=== PATIENT | male | born 1960 | race Caucasian/White ===

== ENCOUNTER → 2018-06-19 15:28 | Outpatient (CLI) | payer OTHER, SELFPAY ==
[2018-06-19 15:36] LABS: Bacteria 0 SEEN /hpf (None Seen); Mucous, Urine 0 SEEN /hpf (<or=2+); Red Blood Cells-Urine 0 SEEN /hpf (0-5); Squamous Epithelial Cells - UA 0 SEEN /hpf (0-5); White Blood Cells 0 SEEN /hpf (0-5)
[2018-06-19 16:55] LABS: Absolute Lymphocyte Count 2.51 X10^3/ul (0.83-4.51); Absolute Neutrophil Count 2.2 X10^3/uL (2.0-7.7); Basophil# 0.06 X10^3/uL; Basophil% 1.1 % (0-1); Eosinophils% 8.8 % (0-5); Hematocrit 48.4 % (40-54); Hemoglobin 16.1 g/dl (13.0-16.5); Lymphocyte # 2.51 X10^3/ul (4.0); Lymphocyte % 44.4 % (19-41); Mean Corp Hgb Conc 33.3 g/gl (32-36); Mean Corpuscular Hgb 32.7 pg (27.0-32.0); Mean Corpuscular Volume 98.4 fL (80-94); Mean Platelet Vol. 9.6 fl (6.2-12.0); Monocyte# 0.41 X10^3/uL; Monocyte% 7.3 % (0-10); Neutrophil # 2.16 X10^3/uL (2.7-7.7); Neutrophil % 38.2 % (47-70); Platelet Count 244 K/mm3 (150-450); RBC Distribution Width CV 13.7 % (11.6-14.6); RBC Distribution Width SD 49.1 fl (35.1-43.9); Red Blood Count 4.92 M/mm3 (4.6-6.2); White Blood Count 5.7 K/mm3 (4.4-11.0)
[2018-06-19 16:57] LABS: POSITIVE COUNT NO; POSITIVE DIFFERENTIAL NO; POSITIVE MORPHOLOGY NO
[2018-06-19 17:11] LABS: Color, Urine Yellow (Yellow); Glucose, Dipstick Normal (Normal); Ketone-Dipstick Negative (Negative); Leukocyte Esterase-Dipstick Negative /ul (Negative); Nitrite-Dipstick Negative (Negative); Occult Blood-Urine Negative /ul (Negative); Protein-Dipstick Negative (Negative); Urine Bilirubin Dipstick Negative (Negative); Urine Clarity Clear (Clear); Urine Urobilinogen Normal (Normal)
[2018-06-19 17:15] LABS: ALB/GLOB Ratio 1.2 RATIO (0.9-2.4); AST(SGOT) 28 U/L (15-37); Alanine Aminotransfer ALT/SGPT 38 U/L (16-61); Albumin, Serum 3.9 g/dL (3.2-5.0); Alkaline Phosphatase 63 U/L (45-117); Anion Gap 9 (5-15); BUN 26 mg/dL (7-18); BUN/Creat Ratio 30.7 RATIO (10-20); Chloride 105 mmol/L (98-107); Cholesterol 212 mg/dL (200); Creatinine, Serum 0.85 mg/dL (0.70-1.30); EST Glomerular Filtration Rate 98 mL/min (>60); Est Glom Filt Rate - Afr Amer 119 mL/min (>60); Globulin 3.2 g/dL (2.2-4.2); Glucose 92 mg/dL (74-106); High Density Lipoprotein 80 mg/dL; PSA,Total - Annual Screen 0.71 ng/mL (0.00-4.00); Potassium 4.5 mmol/L (3.5-5.1); Protein, Total 7.1 g/dL (6.4-8.2); Sodium Level 141 mmol/L (136-145); Triglycerides 110 mg/dL; Very Low Density Lipoprotein 22 mg/dL (5-40)
== END ==
PROVIDERS: Family Provider Family Medicine; PCP Family Medicine; Visit Provider Family Medicine
DX: Z00.00 Encounter for general adult medical examination without abnormal findings (principal); Z51.81 Encounter for therapeutic drug level monitoring; Z12.5 Encounter for screening for malignant neoplasm of prostate; N13.4 Hydroureter; R16.0 Hepatomegaly, not elsewhere classified
CPT/HCPCS: 36415; 80053; 80061; 81001; 84153; 85025; G0103

== ENCOUNTER → 2019-09-29 07:00 | Outpatient (CLI) | payer BC, SELFPAY ==
--- NOTE | 2019-09-29 07:10 | RAD_ITS ---
STUDY: X-RAY - ORBITS REASON FOR EXAM: Male, 59 years old. CLEARANCE FOR MRI; -- H/O METAL IN EYES TECHNIQUE: 2 view(s) of the orbits were obtained. COMPARISON: None. FINDINGS: Normal bilateral orbits without a metallic orbital foreign body. Normal visualized facial bones. Normal paranasal sinuses. The soft tissue structures are unremarkable. RAD/Orbits for Foreign Body IMPRESSION: No demonstrated metallic orbital foreign body. The patient is cleared for an MRI examination. Electronically Signed: Jake Nieves MD at 8:00 EST Tel , Service support ,
--- NOTE | 2019-09-29 07:45 | MRI_ITS ---
STUDY: MRI LUMBAR SPINE WITHOUT CONTRAST REASON FOR EXAM: Male, 59 years old. Back pain and leg pain TECHNIQUE: Standardized fat and water weighted pulse sequences were obtained in the sagittal and axial planes. COMPARISON: 08 June 2018, 17 May 2014 FINDINGS: Lumbar spine is intact and aligned with normal marrow, paraspinous soft tissues and upper SI joints. There is L5-S1 endplate and disc degeneration. Conus medullaris terminates at L1-L2 with normal cauda equina and widely patent thecal sac. There are multilevel mild scattered foraminal stenoses. L5-S1 has a left central disc extrusion without thecal sac or lateral recess stenosis. There is proximity of herniated disc material to the left traversing S1 nerve root in the lateral recess without anatomic compression. Right recess is patent. MRI/Spine Lumbar (Routine) IMPRESSION: 1. Left L5-S1 disc extrusion, possible noncompressive effect on the left S1 nerve root in the lateral recess. 2. Patent canal, no neural compression. Electronically Signed: Lena Pan, at 16:50 EST Tel , Service support ,
== END ==
PROVIDERS: Family Provider Family Medicine; PCP Family Medicine; Referring Provider Family Medicine; Visit Provider Family Medicine
DX: M51.16 Intervertebral disc disorders with radiculopathy, lumbar region (principal); M48.061 Spinal stenosis, lumbar region without neurogenic claudication; M47.27 Other spondylosis with radiculopathy, lumbosacral region
CPT/HCPCS: 70030; 72148

== ENCOUNTER → 2020-02-19 08:48 | Outpatient (CLI) | payer BC, SELFPAY ==
[2020-02-19 08:41] VITALS: BMI 17.6
--- NOTE | 2020-02-19 08:49 | RAD_ITS ---
STUDY: X-RAY - LUMBAR SPINE REASON FOR EXAM: Male, 59 years old. PAIN TECHNIQUE: 4 view(s) of the lumbar spine were obtained including flexion and extension views. COMPARISON: None FINDINGS: Normal lumbar lordosis. There is no substantial scoliosis. There is a normal alignment of the vertebrae. Normal vertebral bodies and endplates. Marked degree of disc space narrowing at the L5-S1 level. No movement occurs between the vertebral segments on the flexion and extension views. There is atherosclerotic calcification of the abdominal aorta without a demonstrated aneurysm. RAD/L/S Spine Min 4 Views IMPRESSION: Degenerative changes of the spine, as detailed above. Electronically Signed: Eben Riggs, at 13:49 EDT , Service support ,
--- NOTE | 2020-02-19 08:49 | RAD_ITS ---
STUDY: X-RAY - CERVICAL SPINE REASON FOR EXAM: Male, 59 years old. PAIN TECHNIQUE: 4 view(s) of the cervical spine were obtained including flexion and extension views.. COMPARISON: None FINDINGS: There are degenerative changes of the anterior atlantoaxial articulation. Normal odontoid process. Normal cervical lordosis. Marked degree of disc space narrowing and disc degeneration at the C5-C6 and C6-C7 levels. Anterior spondylosis. Facet joint osteoarthritis. No abnormal movement occurs between the segments. The soft tissue structures are unremarkable. RAD/Cerv Spine 4 or 5 Views IMPRESSION: Disc space narrowing and disc degeneration with spondylosis at the C5-C6 and C6-C7 levels. Electronically Signed: Eben Riggs, at 13:45 EDT , Service support ,
== END ==
PROVIDERS: PCP Family Medicine; Referring Provider Orthopaedic Surgery; Visit Provider Orthopaedic Surgery
DX: M54.2 Cervicalgia (principal); M54.5 Low back pain
CPT/HCPCS: 72050; 72110

== ENCOUNTER 2020-04-23 16:00 | Outpatient (RCR) | payer BC, SELFPAY ==
[2020-02-19 08:41] VITALS: BMI 17.6
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
--- NOTE | 2020-07-14 17:43 | HP.PT.NRP ---
FRANKI HEBERT was seen in my office for initial evaluation on 02/25/20. The following Plan of Care was established for this patient: Initial Frequency: 2x /Week Initial Duration: 2 Months Patient/Client Instruction: Educate patient on: Condition, Plan of Care, Risk Factors, Benefits of Fitness Program For the Purpose of:: To improve self management Therapeutic Exercise to Include: Strength training, Body mechanics, Postural training, Flexibilty training, Neuromotor development, In an aquatic setting, Dynamic Lumbar Stabilization For the Purpose of:: To decrease pain, To increase ROM, To improve muscle performance and motor function, To increase tolerance to activity/condition/position, To improve ability of physical actions for home/community/work/leisure This patient was last seen in our office 04/23/20. Pertinent comments regarding their Physical therapy will appear below: This patient has not returned to Physical Therapy and is appropriate to return to MD for further follow-up as needed. At this point I will be discontinuing this patient from physical therapy. I would be happy to see this patient again in the future if found appropriate by the physician. Thank you! Shana Blank, PT, Cert MDT
== END 2020-04-23 19:00 | disposition home or self-care (01) ==
LOC: PT 16:00
PROVIDERS: PCP Family Medicine; Referring Provider Orthopaedic Surgery; Visit Provider Orthopaedic Surgery
DX: M54.9 Dorsalgia, unspecified (principal); M79.605 Pain in left leg
CPT/HCPCS: 97110; 97112; 97113; 97162; 97164

== ENCOUNTER → 2020-11-14 08:21 | Outpatient (CLI) | payer BC, SELFPAY ==
[2020-04-22 14:49] VITALS: BMI 17.6
[2020-11-14 12:19] LABS: Absolute Lymphocyte Count 2.83 X10^3/uL (0.83-4.51); Absolute Neutrophil Count 4.7 X10^3/uL (2.0-7.7); Basophil# 0.05 X10^3/uL; Basophil% 0.6 % (0-1); Eosinophils% 4.5 % (0-5); Hematocrit 51.4 % (40-54); Lymphocyte # 2.83 X10^3/ul (4.0); Lymphocyte % 31.9 % (19-41); Mean Corp Hgb Conc 31.1 g/dL (32-36); Mean Corpuscular Hgb 30.8 pg (27.0-32.0); Mean Corpuscular Volume 98.8 fL (80-94); Mean Platelet Vol. 9.8 fl (6.2-12.0); Monocyte# 0.83 X10^3/uL; Monocyte% 9.4 % (0-10); NRBC Flagged by Analyzer 0 % (0-5); Neutrophil # 4.73 X10^3/uL (2.7-7.7); Neutrophil % 53.4 % (47-70); Platelet Count 306 K/mm3 (150-450); RBC Distribution Width CV 14.4 % (11.6-14.6); RBC Distribution Width SD 52.5 fl (35.1-43.9); White Blood Count 8.9 K/mm3 (4.4-11.0)
[2020-11-14 12:36] LABS: ALB/GLOB Ratio 1.1 RATIO (0.9-2.4); AST(SGOT) 15 U/L (15-37); Alanine Aminotransfer ALT/SGPT 27 U/L (16-61); Albumin, Serum 3.6 g/dL (3.2-5.0); Alkaline Phosphatase 88 U/L (45-117); Anion Gap 4 (5-15); BUN 27 mg/dL (7-18); BUN/Creat Ratio 33.1 RATIO (10-20); Calcium,Total 8.8 mg/dL (8.5-10.1); Chloride 103 mmol/L (98-107); Cholesterol 216 mg/dL (200); Creatinine, Serum 0.82 mg/dL (0.70-1.30); EST Glomerular Filtration Rate 102 mL/min (>60); Est Glom Filt Rate - Afr Amer 124 mL/min (>60); Globulin 3.4 g/dL (2.2-4.2); Glucose 86 mg/dL (74-106); High Density Lipoprotein 64 mg/dL; PSA,Total - Annual Screen 0.93 ng/mL (0.00-4.00); Sodium Level 139 mmol/L (136-145); Triglycerides 273 mg/dL; Very Low Density Lipoprotein 55 mg/dL (5-40)
== END ==
PROVIDERS: PCP Family Medicine; Visit Provider Family Medicine
DX: Z00.00 Encounter for general adult medical examination without abnormal findings (principal); Z12.5 Encounter for screening for malignant neoplasm of prostate
CPT/HCPCS: 36415; 80053; 80061; 84153; 85025; G0103

== ENCOUNTER → 2022-11-18 | Outpatient (CLI) | payer MEDICAID, SELFPAY ==
[2022-11-18 17:39] LABS: Absolute Lymphocyte Count 1.97 X10^3/uL (0.83-4.51); Absolute Neutrophil Count 4.7 X10^3/uL (2.0-7.7); Basophil# 0.07 X10^3/uL; Basophil% 0.9 % (0-1); Eosinophil# 0.57 X10^3/uL; Eosinophils% 7.2 % (0-5); Lymphocyte # 1.97 X10^3/ul (0.83-4.51); Lymphocyte % 24.7 % (19-41); Mean Corp Hgb Conc 32.5 g/dL (32-36); Mean Corpuscular Hgb 32.5 pg (27.0-32.0); Mean Platelet Vol. 9.8 fl (6.2-12.0); Monocyte# 0.69 X10^3/uL; Monocyte% 8.7 % (0-10); NRBC Flagged by Analyzer 0 % (0-5); Neutrophil # 4.65 X10^3/uL (2.7-7.7); Neutrophil % 58.2 % (47-70); Platelet Count 235 K/mm3 (150-450); RBC Distribution Width CV 13.2 % (11.6-14.6); RBC Distribution Width SD 49.6 fl (35.1-43.9); Red Blood Count 5.67 M/mm3 (4.6-6.2)
[2022-11-18 17:43] LABS: Hematocrit 56.7 % (40-54)
[2022-11-18 17:51] LABS: Hemoglobin 18.4 g/dL (13.0-16.5)
[2022-11-18 19:30] LABS: ALB/GLOB Ratio 1.2 RATIO (0.9-2.4); AST(SGOT) 24 U/L (15-37); Alanine Aminotransfer ALT/SGPT 24 U/L (16-61); Albumin, Serum 3.8 g/dL (3.2-5.0); Alkaline Phosphatase 68 U/L (45-117); Anion Gap 5 (5-15); BUN 32 mg/dL (7-18); BUN/Creat Ratio 34.7 RATIO (10-20); Calcium,Total 9.8 mg/dL (8.5-10.1); Chloride 99 mmol/L (98-107); Creatinine, Serum 0.92 mg/dL (0.70-1.30); EST Glomerular Filtration Rate 88 mL/min (>60); Est Glom Filt Rate - Afr Amer 106 mL/min (>60); Globulin 3.3 g/dL (2.2-4.2); Glucose 97 mg/dL (74-106); PSA,Total - Annual Screen 0.59 ng/mL (0.00-4.00); Potassium 4.6 mmol/L (3.5-5.1); Protein, Total 7.1 g/dL (6.4-8.2); Sodium Level 138 mmol/L (136-145)
[2022-11-22 09:00] LABS: Pathologist Review Reviewed
== END | disposition home or self-care (01) ==
PROVIDERS: PCP Family Medicine; Visit Provider Family Medicine
DX: Z00.00 Encounter for general adult medical examination without abnormal findings (principal); Z12.5 Encounter for screening for malignant neoplasm of prostate
CPT/HCPCS: 84153; 36415; 80053; 85025; G0103

== ENCOUNTER → 2023-06-07 | Outpatient (CLI) | payer OTHER, SELFPAY | END | disposition home or self-care (01) | PROVIDERS: PCP Family Medicine; Referring Provider Family Medicine; Visit Provider Family Medicine | DX: R30.0 Dysuria (principal) | CPT/HCPCS: 87077; 87086; 87088; 87186 ==

== ENCOUNTER → 2023-09-30 | Outpatient (CLI) | payer OTHER, SELFPAY ==
--- OUTSIDE RECORDS SUMMARY | 2023-09-30 14:50 | XMS RPT_ITS | CCD ---
Author Name Unknown Address [facility] [address] [place] [id number] Organization [facility] Care Team Providers Care Finisher Denture Name Role Phone Davion Zarate Primary Care Unavailable BRYCE MAY Attending Unavailable BRYCE MAY Admitting Unavailable Davion Zarate Primary Care Unavailable Davion Zarate Attending Unavailable Davion Zarate Admitting Unavailable LAW MUSA Attending Unavailable LAW MUSA Admitting Unavailable Davion Zarate Primary Care Unavailable Allergies Allergy Classification Reported Allergen(s) Allergy Type Date of Onset Reaction(s) Facility (1 source) No Known Medication Allergies; Translations: [No Known Medication Allergies] Propensity to adverse reactions to drug (disorder) [facility] Repository Results Test Name Value Interpretation Reference Range Facil ity Encounters Encounter Date Encounter Type Care Provider Facility Start: 06-13-2023 End: 06-14-2023 ambulatory [facility] Facility:[facility] Start: 12-06-2022 End: 12-06-2022 ambulatory [facility] Facility:[facility] alberto Start: 08-13-2022 End: 08-14-2022 ambulatory LAW MUSA Facility:[facility] Payers Date Payer Category Payer Unknown [id number] 2022 Private Health Insurance [id number] 1960 Unknown [id number] 1960 Unknown [id number] 1959 Unknown [id number] Clinical Note 12-06-2022 Note Date & Type Note Facility 12-06-2022 Note Patient Education Ma terials Follows: Hypertension, Adult High blood pressure (hypertension) is when the force of blood pumping through the arteries is too strong. The arteries are the blood vessels that carry blood from the heart throughout the body. Hypertension forces the heart to work harder to pump blood and may cause arteries to become narrow or stiff. Untreated or uncontrolled hypertension can cause a heart attack, heart failure, a stroke, kidney disease, and other problems. A blood pressure reading consists of a higher number over a lower number. Ideally, your blood pressure should be below 120/80. The first ( top ) number is called the systolic pressure. It is a measure of the pressure in your arteries as your heart beats. The second ( bottom ) number is called the diastolic pressure. It is a measure of the pressure in your arteries as the heart relaxes. What are the causes? The exact cause of this condition is not known. There are some conditions that result in or are related to high blood pressure. What increases the risk? Some risk factors for high blood pressure are under your control. The following factors may make you more likely to develop this condition: ? Smoking. ? Having type 2 diabetes mellitus, high cholesterol, or both. ? Not getting enough exercise or physical activity. ? Being overweight. ? Having too much fat, sugar, calories, or salt (sodium) in your diet. ? Drinking too much alcohol. Some risk factors for high blood pressure may be difficult or impossible to change. Some of these factors include: ? Having chronic kidney disease. ? Having a family history of high blood pressure. ? Age. Risk increases with age. ? Race. You may be at higher risk if you are . ? Gender. Men are at higher risk than women before age 45. After age 65, women are at higher risk than men. ? Having obstructive sleep apnea. ? Stress. What are the signs or symptoms? High blood pressure may not cause symptoms. Very high blood pressure (hypertensive crisis) may cause: ? Headache. ? Anxiety. ? Shortness of breath. ? Nosebleed. ? Nausea and vomiting. ? Vision changes. ? Severe chest pain. ? Seizures. How is this diagnosed? This condition is diagnosed by measuring your blood pressure while you are seated, with your arm resting on a flat surface, your legs uncrossed, and your feet flat on the floor. The cuff of the blood pressure monitor will be placed directly against the skin of your upper arm at the level of your heart. It should be measured at least twice using the same arm. Certain conditions can cause a difference in blood pressure between your right and left arms. Certain factors can cause blood pressure readings to be lower or higher than normal for a short period of time: ? When your blood pressure is higher when you are in a health care provider's office than when you are at home, this is called white coat hypertension. Most people with this condition do not need medicines. ? When your blood pressure is higher at home than when you are in a health care provider's office, this is called masked hypertension. Most people with this condition may need medicines to control blood pressure. If you have a high blood pressure reading during one visit or you have normal blood pressure with other risk factors, you may be asked to: ? Return on a different day to have your blood pressure checked again. ? Monitor your blood pressure at home for 1 week or longer. If you are diagnosed with hypertension, you may have other blood or imaging tests to help your health care provider understand your overall risk for other conditions. How is this treated? This condition is treated by making healthy lifestyle changes, such as eating healthy foods, exercising more, and reducing your alcohol intake. Your health care provider may prescribe medicine if lifestyle changes are not enough to get your blood pressure under control, and if: ? Your systolic blood pressure is above 130. ? Your diastolic blood pressure is above 80. Your personal target blood pressure may vary depending on your medical conditions, your age, and other factors. Follow these instructions at home: Eating and drinking ? Eat a diet that is high in fiber and potassium, and low in sodium, added sugar, and fat. An example eating plan is called the DASH (Dietary Approaches to Stop Hypertension) diet. To eat this way: ? Eat plenty of fresh fruits and vegetables. Try to fill one half of your plate at each meal with fruits and vegetables. ? Eat whole grains, such as whole-wheat pasta, brown rice, or whole-grain bread. Fill about one fourth of your plate with whole grains. ? Eat or drink low-fat dairy products, such as skim milk or low-fat yogurt. ? Avoid fatty cuts of meat, processed or cured meats, and poultry with skin. Fill about one fourth of your plate with lean proteins, such as fish, chicken without skin, beans, e (more content not included)... [facility] Summary Purpose Family History No Family History Records Found Advance Directives No Advanced Directives Records Found Additional Source Comments (unrecognized sect ion and content) No Status Records Found INFORMATION SOURCE (unrecogn ized section and content) FOR RECORDS PERTAINING TO PATIENTS WHO ARE OR HAVE BEEN ENROLLED IN A CHEMICAL DEPENDENCY/SUBSTANCEABUSE PROGRAM, SOME INFORMATION MAY BE OMITTED. This clinical summary was aggregated from multiple sources. Caution should be exercised in using it in the provision of clinical care. This summary normalizes information from multiple sources, and as a consequence, information in this document may materially change the coding, format and clinical context of patient data. In addition, data may be omitted in some cases. CLINICAL DECISIONS SHOULD BE BASED ON THE PRIMARY CLINICAL RECORDS. [facility] [employer] [facility]. provides no warranty or guarantee of the accuracy or completeness of information in this document.
--- NOTE | 2023-09-30 15:23 | RAD_ITS ---
INDICATION: HYPOXIA, Emphysema, pleural EFFUSION EXAMINATION/TECHNIQUE: X-RAY - XR Chest 2 Views COMPARISON: Prior study dated: 10/31/2016. FINDINGS: LINES/DEVICES: None. LUNGS: The lungs remain hyperinflated with COPD changes. No focal infiltrate is seen. No evidence of pleural effusions. MEDIASTINUM AND CARDIOVASCULAR STRUCTURES: Cardiac silhouette not enlarged. Central airways and mediastinal contour are unremarkable. BONES AND SOFT TISSUES: No demonstrated acute osseous changes. RAD/Chest PA and Lateral IMPRESSION: 1. COPD changes. 2. No radiographic evidence of acute cardiopulmonary disease. Electronically Signed: Pantera Fair MD at 16:10 EST ,
[2023-09-30 17:30] LABS: Absolute Lymphocyte Count 1.92 X10^3/uL (0.83-4.51); Absolute Neutrophil Count 5.1 X10^3/uL (2.0-7.7); Basophil# 0.11 X10^3/uL; Basophil% 1.4 % (0-1); Eosinophil# 0.17 X10^3/uL; Eosinophils% 2.1 % (0-5); Lymphocyte # 1.92 X10^3/ul (0.83-4.51); Mean Corpuscular Hgb 31.1 pg (27.0-32.0); Mean Corpuscular Volume 100.3 fL (80-94); Mean Platelet Vol. 9.7 fl (6.2-12.0); Monocyte# 0.66 X10^3/uL; Monocyte% 8.3 % (0-10); NRBC Flagged by Analyzer 0 % (0-5); Neutrophil % 63.8 % (47-70); Platelet Count 233 K/mm3 (150-450); RBC Distribution Width CV 13.4 % (11.6-14.6); RBC Distribution Width SD 49.8 fl (35.1-43.9); Red Blood Count 6.39 M/mm3 (4.6-6.2)
[2023-09-30 17:41] LABS: Color, Urine Yellow (Yellow); Glucose, Dipstick Normal (Normal); Ketone-Dipstick Negative (Negative); Leukocyte Esterase-Dipstick 100 /ul (Negative); Nitrite-Dipstick Negative (Negative); Occult Blood-Urine 25 /ul (Negative); Protein-Dipstick 100 mg/dl (Negative); Urine Clarity Sl. Cloudy (Clear); Urine Urobilinogen 1 mg/dl (Normal); Urine pH 6.5 (5.0 - 8.0)
[2023-09-30 17:43] LABS: Urine Bilirubin Dipstick 1 mg/dL (Negative)
[2023-09-30 17:52] LABS: Hematocrit 64.1 % (40-54); Hemoglobin 19.9 g/dL (13.0-16.5)
[2023-09-30 17:54] LABS: BNP,B-Type NATRIURETIC PEPTIDE 16.2 pg/mL (0-100)
[2023-09-30 17:57] LABS: ALB/GLOB Ratio 1.1 RATIO (0.9-2.4); AST(SGOT) 21 U/L (15-37); Alanine Aminotransfer ALT/SGPT 31 U/L (16-61); Albumin, Serum 3.8 g/dL (3.2-5.0); Alkaline Phosphatase 70 U/L (45-117); Anion Gap 2 (5-15); BUN 34 mg/dL (7-18); BUN/Creat Ratio 33.7 RATIO (10-20); Calcium,Total 9.5 mg/dL (8.5-10.1); Chloride 101 mmol/L (98-107); Creatinine, Serum 1.01 mg/dL (0.70-1.30); EST Glomerular Filtration Rate 79 mL/min (>60); Est Glom Filt Rate - Afr Amer 96 mL/min (>60); Globulin 3.6 g/dL (2.2-4.2); Glucose 92 mg/dL (74-106); LDH 244 U/L (87-241); Potassium 4.8 mmol/L (3.5-5.1); Protein, Total 7.4 g/dL (6.4-8.2); Sodium Level 139 mmol/L (136-145)
[2023-10-02 07:07] LABS: Carbohydrate AG 19-9 8 U/mL (0-35)
== END | disposition home or self-care (01) ==
PROVIDERS: PCP Family Medicine; Referring Provider Family Medicine; Visit Provider Family Medicine
DX: R10.31 Right lower quadrant pain (principal); R63.4 Abnormal weight loss; R61 Generalized hyperhidrosis; R09.02 Hypoxemia; J90 Pleural effusion, not elsewhere classified
CPT/HCPCS: 36415; 71046; 80053; 81002; 83615; 83880; 85025; 86301

== ENCOUNTER → 2024-06-07 | Outpatient (CLI) | payer OTHER, SELFPAY ==
[2024-06-07 15:19] LABS: Absolute Lymphocyte Count 1.75 X10^3/uL (0.83-4.51); Absolute Neutrophil Count 4.1 X10^3/uL (2.0-7.7); Basophil# 0.05 X10^3/uL; Basophil% 0.8 % (0-1); Eosinophil# 0.13 X10^3/uL; Lymphocyte # 1.75 X10^3/ul (0.83-4.51); Lymphocyte % 26.9 % (19-41); Mean Corp Hgb Conc 31.9 g/dL (32-36); Mean Corpuscular Hgb 31.7 pg (27.0-32.0); Mean Corpuscular Volume 99.2 fL (80-94); Mean Platelet Vol. 10.1 fl (6.2-12.0); Monocyte% 7.7 % (0-10); NRBC Flagged by Analyzer 0 % (0-5); Neutrophil # 4.05 X10^3/uL (2.7-7.7); Neutrophil % 62.3 % (47-70); Platelet Count 224 K/mm3 (150-450); RBC Distribution Width CV 16.4 % (11.6-14.6); RBC Distribution Width SD 58.4 fl (35.1-43.9); Red Blood Count 6.28 M/mm3 (4.6-6.2); White Blood Count 6.5 K/mm3 (4.4-11.0)
[2024-06-07 15:38] LABS: Hematocrit 62.3 % (40-54)
[2024-06-07 15:41] LABS: Hemoglobin 19.9 g/dL (13.0-16.5)
[2024-06-07 16:07] LABS: Anion Gap 3 (5-15); BUN 30 mg/dL (7-18); BUN/Creat Ratio 37.8 RATIO (10-20); Calcium,Total 9.5 mg/dL (8.5-10.1); Chloride 101 mmol/L (98-107); Creatinine, Serum 0.79 mg/dL (0.70-1.30); EST Glomerular Filtration Rate 104 mL/min (>60); Est Glom Filt Rate - Afr Amer 126 mL/min (>60); Glucose 76 mg/dL (74-106); PSA,Total - Annual Screen 0.61 ng/mL (0.00-4.00); Potassium 4.5 mmol/L (3.5-5.1); Sodium Level 137 mmol/L (136-145)
[2024-06-08 16:11] LABS: Pathologist Review Reviewed
== END | disposition home or self-care (01) ==
LOC: BFHLAB 13:42
PROVIDERS: PCP Family Medicine; Referring Provider Family Medicine; Visit Provider Family Medicine
DX: D75.1 Secondary polycythemia (principal); Z12.5 Encounter for screening for malignant neoplasm of prostate; Z51.81 Encounter for therapeutic drug level monitoring
CPT/HCPCS: 36415; 80048; 84153; 85025; G0103

== ENCOUNTER → 2025-07-30 | Outpatient (CLI) | payer MEDICARE, SELFPAY ==
[2025-07-30 17:35] LABS: Immature Granulocytes Count 0.010 X10^3/uL (0.0-0.0); Mean Corp Hgb Conc 32.2 g/dL (32-36); Mean Corpuscular Volume 102.7 fL (80-94); Mean Platelet Vol. 10.3 fl (6.2-12.0); NRBC Flagged by Analyzer 0 % (0-5); Platelet Count 240 K/mm3 (150-450); RBC Distribution Width CV 13.2 % (11.6-14.6); RBC Distribution Width SD 50.9 fl (35.1-43.9); Red Blood Count 5.93 M/mm3 (4.6-6.2); White Blood Count 8.7 K/mm3 (4.4-11.0)
[2025-07-30 17:55] LABS: Hematocrit 60.9 % (40-54)
[2025-07-30 18:04] LABS: AST(SGOT) 23 U/L (<=37); Alanine Aminotransfer ALT/SGPT 16 U/L (<=46); Albumin, Serum 4.7 g/dL (3.4-4.8); Alkaline Phosphatase 69 U/L (40-129); Anion Gap 13 (5-15); BUN 26 mg/dL (4-19); BUN/Creat Ratio 30.5 RATIO (10-20); CORTISOL PM 7.44 ug/dL (2.68-10.50); Calcium,Total 10.0 mg/dL (7.6-11.0); Carbon Dioxide 30.5 mmol/L (21.0-32.0); Chloride 98 mmol/L (98-108); Cholesterol 231 mg/dL (<=200); Globulin 3.0 g/dL (2.2-4.2); Glucose 98 mg/dL (70-99); Low Density Lipoprotein Calc. 126 mg/dL; PSA,Total - Annual Screen 1.62 ng/mL (0.02-4.00); Potassium 4.3 mmol/L (3.3-5.1); Triglycerides 120 mg/dL; Very Low Density Lipoprotein 24 mg/dL (5-40); cholesterol:hdl ratio screen 2.75
[2025-07-30 18:37] LABS: Barbiturate Urine NEGATIVE (< 200 ng/mL); Benzodiazepine Urine NEGATIVE (< 200 ng/mL); PCP Urine NEGATIVE (< 25 ng/mL); THC Urine NEGATIVE (< 50 ng/mL)
[2025-07-30 18:39] LABS: Color, Urine Amber (Yellow); Glucose, Dipstick Normal (Normal); Ketone-Dipstick Negative (Negative); Leukocyte Esterase-Dipstick Negative /ul (Negative); Nitrite-Dipstick Negative (Negative); Occult Blood-Urine 10 /ul (Negative); Protein-Dipstick 100 mg/dl (Negative); Specific Gravity, Urine 1.020 (1.002-1.030); Urine Bilirubin Dipstick Negative (Negative)
[2025-07-30 19:07] LABS: Hemoglobin 19.6 g/dL (13.0-16.5)
--- OUTSIDE RECORDS SUMMARY | 2025-07-30 19:17 | XMS RPT_ITS | CCD ---
Author Organization [facility] CliniSyma Care Team Providers Care Commutator V Ring Assembler Name Role Phone MD Pascual Gonzalez Attending Provider [phone] NON STAFF Primary Care Provider Unavailabl e NON STAFF Primary Care Unavailable Pascual Gonzalez Attending Unavailable Pascual Gonzalez Admitting Unavailable Unavailable Primary Care Provider Unavailabl e IvetSmith jaramillo Primary Care Unavailable IvetSmith jaramillo Referring Unavailable IvetSmith jaramillo Attending Unavailable IvetSmith jaramillo Referring Unavailable IvetSmith jaramillo Attending Unavailable IvetSmith jaramillo Primary Care Unavailable IvetSmith jaramillo A Primary Care Provider Unavailab le Ivet, Smith A Primary Care Provider Unavailab le DAVID, P ABRAHAM Referring Unavailable IVET, SMIHT A Primary Care Unavailable GREG HERNANDEZ Attending Unavailable GREG HERNANDEZ Referring Unavailable IVETSMITH JARAMILLO A Primary Care Unavailable IVETSMITH JARAMILLO A Referring Unavailable IVETSMITH JARAMILLO A Primary Care Unavailable DAVID, P ABRAHAM Attending Unavailable KLEBER SANDOVAL Referring Unavailabl e RENAE WEEMS Referring Unavailable IVET, SMITH A Primary Care Unavailable KLEBER SANDOVAL Attending Unavailabl KLEBER Sifuentes Referring Unavailabl e IVETSMITH JARAMILLO A Primary Care Unavailable RYANN WASHINGTON Admitting Unavailable RYANN WASHINGTON Attending Unavailable RYANN WASHINGTON Referring Unavailable IVETSMITH JARAMILLO A Primary Care Unavailable DAVID, P ABRAHAM Attending Unavailable SMITH COONEY A Referring Unavailable IVETSMITH JARAMILLO A Primary Care Unavailable DAVID, P ABRAHAM Attending Unavailable DAVID, P ABRAHAM Referring Unavailable IVETSMITH JARAMILLO A Primary Care Unavailable DAVID, P ABRAHAM Attending Unavailable SMITH COONEY A Referring Unavailable IVETSMITH JARAMILLO A Primary Care Unavailable NADEEM BHATTI Attending Unavailable IVET, SMITH A Referring Unavailable IVET, SMITH A Primary Care Unavailable DAVID, P ABRAHAM Referring Unavailable IVET, SMITH A Primary Care Unavailable DAVID, P ABRAHAM Admitting Unavailable DAVID, P ABRAHAM Attending Unavailable IVET, SMITH A Primary Care Unavailable DAVID, P ABRAHAM Attending Unavailable DAVID, P ABRAHAM Referring Unavailable IVET, SMITH A Primary Care Unavailable Ivet, Smith Primary Care Unavailable FaustinaRenae beltre Admitting Unavailable FaustinaRenae carr Attending Unavailable Cristóbal Ryan Attending Unavailab le Ivet, Smith Primary Care Unavailable Cristóbal Ryan Admitting Unavailab le Jovon Georgiana Admitting Unavailable Jovon, Georgiana Attending Unavailable Ivet, Smith Primary Care Unavailable Ivet, Smith Primary Care Unavailable FLOYD Mccartney Admitting Unavailable FLOYD Mccartney Attending Unavailable Kleber Sandoval Admitting Unavailabl e [place]ab[place], Kleber Hendrickson Attending Unavailabl e Ivet, Smith Primary Care Unavailable Kleber Sandoval Admitting Unavailabl e Francis, Kleber Hendrickson Attending Unavailabl e IvetSmith jaramillo Primary Care Unavailable Jovon, Georgiana Attending Unavailable Ivet, Smith Primary Care Unavailable Jovon, Georgiana Admitting Unavailable Ivet, Smith Primary Care Unavailable Wiliam Thomas DO Attending Unavailable Jovon, Georgiana Attending Unavailable Ivet, Smith Primary Care Unavailable Jovon, Georgiana Admitting Unavailable Ivet, Smith Primary Care Unavailable David, Perikaruppa Abraham Admitting [place]ul[place] vailable David, Perikaruppa Abraham Attending Beulah vailable KLEBER SANDOVAL Attending Unavailabl e GEORGIANA SIGALA Referring Unavailable KLEBER SANDOVAL Attending Unavailabl e IVET, SMITH A Primary Care Unavailable IVET, SMITH A Referring Unavailable IVET, SMITH A Primary Care Unavailable Allergies Allergy Classification Reported Allergen(s) Allergy Type Date of Onset Reaction(s) Facility (20 sources) rosuvastatin; Translations: [ROSUVASTATIN] Drug Allergy 08-21-2024 [facility] Medications Current Medications Medication Drug Class(es) Dates Sig (Normalized) Sig (Original) 0.6 ml enoxaparin sodium 100 mg/ml prefilled syringe (6 sources) Low Molecular Weight Heparin Start: 03-14-2025 End: 03-16-2025 inject 0.6 mL by subcutaneous injection once enoxaparin (LOVENOX) 60 mg/0.6 mL syringe Inject 0.6 mL (60 mg total) under the skin Every 12 (twelve) hours for 3 doses. To be taken while holding Xarelto for upcoming procedure 1.8 mL 03/14/2025 03/16/2025 Active Start: 11-14-2024 End: 11-14-2024 inject 0.6 mL by subcutaneous injection once enoxaparin (LOVENOX) 60 mg/0.6 mL syringe Inject 0.6 mL (60 mg total) under the skin once for 1 dose. 0.6 mL 11/14/2024 11/14/2024 Active Start: 11-05-2024 End: 11-07-2024 inject 0.6 mL by subcutaneous injection once enoxaparin (LOVENOX) 60 mg/0.6 mL syringe Inject 0.6 mL (60 mg total) under the skin Every 12 (twelve) hours for 2 days. 2.4 mL 11/05/2024 11/07/2024 Active ezetimibe 10 mg oral tablet (20 sources) Dietary Cholesterol Absorption Inhibitor Start: 08-06-2024 End: 03-27-2025 take 1 tablet by mouth in the morning ZETIA 10 mg tablet Take 1 tablet (10 mg total) by mouth in the morning. 08/06/2024 Active Fluticasone-Umecl idin-Vilanter (20 sources) Anticholinergic, Corticosteroid, beta2-Adrenergic Agonist Start: 11-28-2023 Fluticasone-Umecl idin-Vilanter (Trelegy Ellipta) 100-62.5-25 mcg blister with device Active 1 INH INHALATION Daily November 27, 2023 11:00pm Start: 11-28-2023 Fluticasone-Um eclidin-Vilanter (Trelegy Ellipta) 100-62.5-25 mcg blister with device Active 1 INH INHALATION Daily November 28, 2023 12:00am take 1 puff(s) by inhalation in the morning bajtvdzqqpt-nvkmlnjdc-gyvrsnvq (TRELEGY ELLIPTA) 100-62.5-25 mcg blister with device Inhale 1 puff in the morning. Active take 1 puff(s) by inhalation once daily eddlprovxie-mqyegaxkt-aorwuwlu (TRELEGY ELLIPTA) 100-62.5-25 mcg blister with device Inhale 1 puff once daily. Active metroNIDAZOLE 500 mg oral tablet (1 source) Nitroimidazole Antimicrobial Start: 11-01-2016 take 500 mg by mouth every eight hours Metronidazole Active 500 MG PO Q8H November 01, 2016 1:00am rivaroxaban 20 mg oral tablet (20 sources) Factor Xa Inhibitor Start: 11-17-2024 End: 03-27-2025 take 1 tablet by mouth in the morning rivaroxaban (XARELTO) 20 mg tablet tablet Take 1 tablet (20 mg total) by mouth in the morning. 11/17/2024 Active Start: 10-11-2024 take 1 tablet by juan carlos th once daily Rivaroxaban (Xarelto) 20 mg tablet Active 20 MG PO Daily October 11, 2024 12:00am Start: 10-11-2024 End: 10-11-2024 take 1 tablet by mouth once daily Rivaroxaban (Xarelto Dvt-Pe Treat 30d Start) 15 mg (42)- 20 mg (9) tablets,dose pack Discontinued 1 TAB PO Daily October 11, 2024 12:00am October 11, 2024 8:54am Start: 08-21-2024 XARELTO DVT-PE TREAT 30D START 15 mg (42)- 20 mg (9) tablets,dose pack See Admin Instructions. Take as directed on package 08/21/2024 Active Completed/Discontinued Medications Medication Drug Class(es) Dates Sig (Normalized) Sig (Original) acetaminophen 325 mg oral tablet (1 source) Start: 03-26-2025 End: 03-27-2025 take 1 tablet by mouth every four hours as needed for pain and headache 650 mg, oral, Every 4 hours PRN, mild pain - pain scale 1-3, headaches, Starting on Tue03/26/25 at 1221 acetaminophen 325 mg / HYDROcodone bitartrate 10 mg oral tablet (20 sources) Opioid Agonist Start: 03-26-2025 End: 03-27-2025 take 1 tablet by mouth every eight hours as needed for pain Start: 08-02-2024 take 1 tablet by juan carlos th every eight hours as needed for pain HYDROcodone-acetaminophen (NORCO) 10-325 mg per tablet Take 1 tablet by mouth every 8 (eight) hours as needed for pain. 08/02/2024 Active Start: 11-28-2023 End: 05-28-2024 Hydrocodone-Acetaminophen 10 -325 mg tablet Discontinued 1 TAB PO November 27, 2023 11:00pm May 28, 2024 10:15am Start: 04-22-2020 Hydrocodone-Ac etaminophen Active EACH PO April 22, 2020 12:00am Start: 11-01-2016 End: 04-22-2020 Hydrocodone-Acetaminophen Di scontinued 1 - 2 TABLET PO EVERY 4 HOURS NEEDED November 01, 2016 1:00am April 22, 2020 2:48pm 1-2 tabs every 3-4 hr prn pain Start: 10-31-2016 End: 02-19-2020 take 1 tablet by mouth four times daily Hydrocodone-Acetaminophen Discontinued 1 TABLET PO 4 TIMES DAILY October 31, 2016 1:00am February 19, 2020 8:32am albuterol 0.83 mg/ml inhalation solution (20 sources) beta2-Adrenergic Agonist Start: 03-26-2025 End: 03-27-2025 take 2.5 mg by inhalation every six hours as needed for dyspnea Start: 07-25-2024 take 2 puff(s) by in halation every four hours as needed albuterol (PROVENTIL HFA;VENTOLIN HFA) 90 mcg/actuation inhaler Inhale 2 puffs every 4 (four) hours as needed. 07/25/2024 Active Start: 11-28-2023 Albuterol Sulf ate 90 mcg/actuation HFA aerosol inhaler Active INHALATION November 27, 2023 11:00pm aluminum hydroxide 40 mg/ml / magnesium hydroxide 40 mg/ml / simethicone 4 mg/ml oral suspension (1 source) Start: 03-26-2025 End: 03-27-2025 amoxicillin 875 mg / clavulanate 125 mg oral tablet (1 source) Penicillin-class Antibacterial Start: 11-01-2016 End: 02-19-2020 Amoxicillin-Pot Clavulanate Discontinued 1 EACH PO TWICE A DAY November 01, 2016 1:00am February 19, 2020 8:49am aspirin 81 mg delayed release oral tablet (18 sources) Platelet Aggregation Inhibitor, Nonsteroidal Anti-inflammatory Drug Start: 03-26-2025 End: 03-27-2025 take 81 mg by mouth once daily 81 mg, oral, Daily, First dose on Tue03/26/25 at 1500, Do not crush or chew. Start: 03-26-2025 End: 03-27-2025 take 81 mg by mouth once daily 81 mg, oral, Daily, Fir st dose on Tue03/26/25 at 1230 Start: 05-28-2024 take 1 tablet by juan carlos th once daily Aspirin 81 mg tablet,chewable Active 81 MG PO Daily May 27, 2024 11:00pm ceFAZolin (ANCEF) 2,000 mg in sodium chloride 0.9 % 50 mL IVPB W/ADAPTER (1 source) Start: 03-26-2025 End: 03-26-2025 take 2000 mg intravenously every eight hours 2,000 mg, intravenous, at 100 mL/hr, Administer over 30 Minutes, Every 8 hours, First dose on Tue03/26/25 at 1700, For 1 dose, For weight less than 120 kg. For a total of 2 doses - including pre-op dose ; Pharmacy may adjust dose per renal function For Vial-2-Bag: Attach bag and vial to adapter - Use immediately after activating; dissolve drug prior to administration., Indication: Surgical prophylaxis flurbiprofen 100 mg oral tablet (4 sources) Nonsteroidal Anti-inflammatory Drug Start: 11-28-2023 End: 05-28-2024 Flurbiprofen 100 mg tablet Discontinued 100 MG PO as needed November 27, 2023 11:00pm May 28, 2024 10:16am fluticasone furoate-vilantero L (BREO ELLIPTA) 100-25 mcg/dose inhaler 1 puff (1 source) Start: 03-27-2025 End: 03-27-2025 fluticasone furoate-vilanteroL (BREO ELLIPTA) 100-25 mcg/dose inhaler 1 puff Furosemide (4 sources) Loop Diuretic Start: 03-22-2025 End: 03-26-2025 inject 80 mg by subcutaneous injection once daily furosemide (FUROSCIX) 80 mg/10 mL kit Inject 80 mg under the skin daily for 3 days. 3 kit 03/22/2025 03/26/2025 Discontinued (Therapy completed) Start: 03-22-2025 End: 03-25-2025 inject 80 mg by subcutaneous injection once daily furosemide (FUROSCIX) 80 mg/10 mL kit Inject 80 mg under the skin daily for 3 days. 3 kit 03/22/2025 03/25/2025 Active glucagon (rdna) 1 mg injecti on (1 source) Antihypoglycemic Agent Start: 03-26-2025 End: 03-27-2025 150 ml glucose 50 mg/ml inje ction (3 sources) Start: 03-26-2025 End: 03-27-2025 Start: 03-26-2025 End: 03-27-2025 Start: 03-26-2025 End: 03-27-2025 LORazepam 0.5 mg oral tablet (1 source) Benzodiazepine Start: 03-26-2025 End: 03-27-2025 take 1 tablet by mouth every six hours as needed for anxiety metoprolol tartrate 50 mg oral tablet (17 sources) beta-Adrenergic Ferny Start: 10-04-2024 End: 12-18-2024 take 1 tablet by mouth in the morning, then take 1 tablet by mouth at bedtime metoprolol tartrate (LOPRESSOR) 50 mg tablet Take 1 tablet (50 mg total) by mouth in the morning and 1 tablet (50 mg total) before bedtime. 180 tablet 3 10/04/2024 12/18/2024 Discontinued 5 ml midazolam 1 mg/ml injection (1 source) Benzodiazepine Start: 03-26-2025 End: 03-26-2025 2 mg, intravenous, Once, On Tue03/26/25 at 0730, For 1 dose, May repeat in 10 minutes, if needed, if original midazolam (VERSED) ineffective, Indication: Other, Indication: anxiety omeprazole 40 mg delayed release oral capsule (4 sources) Proton Pump Inhibitor Start: 11-28-2023 End: 05-28-2024 Omeprazole 40 mg capsule,delayed release(DR/EC) Discontinued 40 MG PO November 27, 2023 11:00pm May 28, 2024 10:15am 2 ml ondansetron 2 mg/ml injection (1 source) Serotonin-3 Receptor Antagonist Start: 03-26-2025 End: 03-27-2025 take 4 mg intravenously every six hours as needed for nausea and vomiting 1000 ml sodium chloride 9 mg/ml injection (4 sources) Start: 03-26-2025 End: 03-26-2025 500 mL, intravenous, at 500 mL/hr, Administer over 1 Hours, Once, On Tue03/26/25 at 2100, For 1 dose Start: 03-26-2025 End: 03-27-2025 Start: 03-26-2025 End: 03-27-2025 3 mL, intravenous, Every 12 hours scheduled, First dose on Tue03/26/25 at 1230 Problems Active Problems Problem Classification Problem Date Documented Da te Episodic/Chronic Abdominal pain (1 source) Right lower quadrant pain; Translations: [Right lower quadrant pain] Onset: 09-25-2024 Episodic Cardiac and circulatory congenital anomalies (20 sources) Patent foramen ovale; Translations: [PFO (patent foramen ovale)] Onset: 08-30-2024 08-30-2024 Chronic Chronic obstructive pulmonary disease and bronchiectasis (1 source) Chronic obstructive lung disease; Translations: [Chronic obstructive pulmonary disease, unspecified] 10-01-2024 Chronic Heart valve disorders (20 sources) Rheumatic tricuspid insufficiency; Translations: [Diseases of tricuspid valve] Onset: 09-21-2024 09-21-2024 Chronic Nonspecific chest pain (3 sources) Acute chest pain; Translations: [Chest pain, unspecified] Onset: 10-26-2024 10-26-2024 Episodic Peripheral and visceral atherosclerosis (7 sources) Peripheral vascular disease, unspecified; Translations: [Peripheral arterial disease] Onset: 05-28-2024 11-28-2023 Chronic Phlebitis; thrombophlebitis and thromboembolism (3 sources) Thrombosis of inferior vena cava; Translations: [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] Onset: 11-01-2024 10-29-2024 Chronic Pulmonary heart disease (20 sources) Pulmonary hypertension; Translations: [Pulmonary hypertension, unspecified] Onset: 08-30-2024 08-30-2024 Chronic Residual codes; unclassified (1 source) History of tricuspid valve repair; Translations: [Other specified postprocedural states] 04-09-2025 Episodic Unclassified (1 source) Medication Problem Onset: 12-18-2024 Unclassified (2 sources) New Patient Onset: 08-30-2024 Unclassified (1 source) Cardiac Valve Problem Onset: 09-21-2024 Unclassified (1 source) Dental Inquiry Onset: 09-21-2024 Varicose veins of lower extremity (5 sources) Varicose veins of lower extremity; Translations: [Asymptomatic varicose veins of right lower extremity] 11-28-2023 Episodic Past or Other Problems Problem Classification Problem Date Documented Da te Episodic/Chronic Mood disorders (3 sources) Mood disorders Onset: 03-26-2025 03-26-2025 Other hematologic conditions (2 sources) Secondary polycythemia; Translations: [Secondary polycythemia] Onset: 07-05-2024 Episodic Other lower respiratory disease (20 sources) Dyspnea; Translations: [Shortness of breath] Onset: 08-30-2024 08-30-2024 Episodic Other lower respiratory disease (3 sources) Shortness of breath; Translations: [Shortness of breath] Onset: 08-30-2024 Episodic Other screening for suspected conditions (not mental disorders or infectious disease) (20 sources) Echocardiogram abnormal; Translations: [Abnormal findings on diagnostic imaging of heart and coronary circulation] Onset: 08-30-2024 08-30-2024 Episodic Phlebitis; thrombophlebitis and thromboembolism (1 source) Acute embolism and thrombosis of unspecified vein; Translations: [Acute embolism and thrombosis of unspecified vein] Onset: 11-16-2024 Episodic Residual codes; unclassified (1 source) Pain, unspecified; Translations: [Pain, unspecified] Onset: 08-22-2024 Episodic Unclassified (4 sources) Severe tricuspid regurgitation 10-26-2024 Unclassified (1 source) History of tricuspid valve repair 04-09-2025 Results Test Name Value Interpretation Reference Range Facility Coding Summaryon 04-18-2025 Coding Summary HTMLBase 64 KqgcauisAEj8qYl+PGhlYWQ+PE 8UHDWdT15kmOQsmU6kB7MVJPdL VwnoVMERWAbTZjSipdMnZA2kpR NjZXJu IC8+BZ9jRMCwFivbqIIjc0X0tV A4R24atj2yWJgqeCS4PRSbBdEf uqczi1paaKc0IKejPkfySkUl AYNmuH48JQF6jB22Mf67fCPecF Hnp6jcgLw7FlHfQUUaPKQ0cJoj MBhgf8VnSFHmQ54ueOXzf5P1 DBCecVjhyWOfHaCwwJW5kQ3oHX vlgttiy5fyxvmpBvq4es43zZUy r1Z5tCZ8K6HkxsI5MOVueJHd HfjyzWQQiY5gssrlh5fgrmwaRt PiVUAgWVj2NIk6NJZbaQizKqOf TP39ZAW0MKBzjfNjW8ExWHNi uJuyGpP1u0C6Hy1ET6VSVtusU5 VNTUFSWTwvdGQ+JP85ue37D0Xn YetlWyi4DBPlKHL4pKM3mJ2x ERCtODaak0R4sYM0D2FrmxTqks 9hv2yrHGIvEJqgL34sbDTnb5I2 KOMryMZ1KBSfvAktZjEgpQ15 Oyc+KMWbgCnxn6FqJzala5ygw7 xucAa1FloeLRGcgjWxtBcsJQN5 u0ExBj7vNSNaiLN2sPX6nD2c MjVaOfY0YWuoP873QmTynYNuNk evQ01fR7JxtAO+EVZfGhw8ZAUb tHhoXV3mG9ZgCDHwovgriARc yFzxGE8iITJrpryhSBDhiJ1mOB XaN8e7LkVvMyP2JYmoR2ExHDLp oganGb89zL0bOjSzEzY3ESlk I5XkfdI4RJDihDAeYXezVRJ5Z8 8ea6X0LYPlRJXnVKO3uJX3mW5c bGlnbjogbGVmdDsgdmVydGlj XVguGPcnG825JDFnwMkqRmCzYQ luZyBEYXRlOiAgMDgvMDcvMjAy NTwvdGQ+BSXmKFY9nWagSCSf xLIeBSyxLm4siSuevVqgUF5xHB ZoagdeXEFygT4pJIRfyNGmqAhx UW7gIRMbsvkmr661FbFoTQD2 SIMxnHBqM8UejW9wKeHeNRQjTG YpB5NkhWGdINvgS821FFmqMzS7 ZACdnaHcM8SlSXCwpMbePqS7 g4U1Hs0Xi2GqcoghJ6LfrRHcSd GsIevsKAz6L0UtXowjiKP+PC90 KAHoLJ82LNv2TLJ3eLfxNDmz FNQiC8GnwM5vNbBdDQJkORSnCp c+PHRhYmxlIHdpZHRoPScxMDAl KvSqqWgcQK5sFn6yXUQhKJXq gWjltKTvKaEzg8brNUZfLVjcUR 5guLfqK9LacHT0YJCum6k6Ck94 S56vR6PzhVV+NFXweBX0cVK3 lL0eEuGkCpY9CAjrS263WgLpdD YdWdfqq4rrl5nzdLt1EyN1OAZx xaOztGjyVWY9n2YvHw23N67b IHdpZHRoPSIxNSUiIHZhbGlnbj 9weL3iTy4+WCUvuPO4dAF7aC7n HvTdZuY6JLbjB493HiLjfJIe Sfpae5gcr7dduOi1LnPlROVsen HazPuzNVB6o0BwKd00N1KmhEgw j7NbRjv1nx13nDOqy6U7gUY0 M0PfMOYwukdfiALgsZunJM8bJL EjbcvjMDTjuA9qFUDpV8w6DtPx QlJ1ZNksE2TkybU6TEZcwDAg IWUnbMABmI1btiljr0sgmmuxQl BeKGMhLWi5BPs3ZRRvfZpgIsNf BGE1QgZ9GKC4uAEhjS4wyXoh powfzX9tEnn+NMA1mRWcuPZZHH 1lOjwvdGQ+UKHtMZX4vPtaPAow OFBqbU4iSXGwG8o9GoWeHvU9 RZmyT0UbckC1QILsgIRpCXGzyB ENeD0ouresf4dfkmsmYpNlHHSh YDt6LBf9TYVcdHjbJnOkYRV9 OgK9YEI2jXRhgL5aoIfohbqmgO 9wOyc+SbwpzYmkVOZ6KLg8A4Eg Tcr8NSDezLbfWG7dvYMaQTas Ml4swAthoHaoBT3wXPWvugafd2 15PlGyf8kzKMGgjQXiDFxoPER8 A65ii7B2ZCJqXIQbRGZ1zCT2 nE2qpWguoddkmBPimHnitjCflD sfLJctWPxmM277JATmrPxyIkSa HTl5N2OuSoa1STBbnQbkWX6m zRYpCFgiZh3fjRbmaPgtFX3iOL Izmsoog001CiYna0mxZDEojCDz ZCkuVAL4X41sf7B1AONzBZKj DYL6yWT9gZ8egYtkhtrceOQkuD smkiLkpCcmTFlhFHbuW362ANDn iWnwZoJvaIi6N1ZzVfy0YTEu eYklMK9deBYhUVnrXd6ptTtkdD lxXC9nHKKaocaqs208HjJvt1ra BOKkaVZgDRmsLLK0Y93uy6K6 GWPwUNTmLPO6cSX6pC0clPlwlc ogbGVmdDsgdmVydGljYWwtYWxp R393KSSosTerIuUhiTdeoxZw JRedWUn1S3PiOjtlzFD+PC90YW OvFF90vFCrkPNmt6ouzBc9BtJz LDZkZCB5qKukGHhqz2DgBPDw E98jcSTof4K4OBDajLpftYIhBv UqaPZ7qW9vJInonkmam0ivngmo Lbqpf3oaan25xF20I11yZJku NVPsQPOkAHXmYZTdjQihxh4kuE 9wIi8+GTWsyXF8xGK9hI0cUXNq BnX5ZFjnS400BeFshWSaIqgc r0npj5saqKj7HqY6GZRldkHdlY hpIQG1a1DuJn59R20fSHhsLASj OEYmMPDxQOOnsQengl7laD5c Ii8+VBQvcLH7rTE6cM1yIjWuZq C2ATwoV783HmAxlXPrAnmeP09t P7HptUH+YHUdUdq8DIHrdUlb HU5fxBTgGKvjQx6uILL1QpDrFv YbQPruH7QvNUOnnhawcucgeOX6 PZUdLCCouK21Aw8hsFoiAYWd lQCXkI4eiximv9babwpnMdSaUR XaQTv1DCy8KAHrtRitVxFdPIY0 NdX5GNQ6dQWdiR6cyKvzxntj xS5wB8LvHMJaxlhnBc90lT3xQn JnMqS1QXhxXkb+PQ6JB7ENMEMF VAJKISWGCAT8O2TrRmn7MTTq nRweBC3ztRUuUUcuXj6igYfzyC chJS3mQSTtrfinOMRwnI8oEKPs wKUesKnzIY0jSNQnbaqot198 IiDeCZY6GNAdkGXfB7YriB0iBo BaUVFtIMTkC4VooJBfQVllG832 YHueWaZ2XIXwblMiY4XnWZHb wJfmWiE4y6N4Or1nJM5eHT2lKJ R7ZR75JZ52yDCaq0K6dRG9Q2Tz KBTsjqnbhxscnLT9LWFmBDPv hV68yTEyXQyuPz1sv3P2p356IY GfOPWtrK88Qp7wcAdnRLSmbYWD xL4wljtju5kynuloTlYyIITm ATd4WPd1ZEFyyWadKuEnRJS7Ii Q7JMR8eUXifC4wqXijifvjsT0z Oyc+OiKwYZIykmI9J2QpFez9 RFIfzYqbPA9hpJSbBPtzLe1eoL wjhCyhDC3gHRHfdslwEYItmA9k THWvwYViyGgbZF2pFYGrtwgy d196EhKuHHL5UCWlzSVmC6VrgA 0dDkPiASSkDUAcS1MymFYvYDpc N441RLfwRgP1DYWfptGkR8Rq RFDgvZkxKtY1i5R2En9AELnFDI 90YQ18tHKkp6T6gTK4T9TyVLMb dhpqrwxukLL6SZDnARCacA38 dUYqTNrkZp1vr2J3t994TRDwVI IteU56Ei8stPdoJORdvFUKnM8t annjr1gpodpyDnCpAGSqHNp3 AGs6PSKpdDqbCxBfGPY2SzB4QH K2mASooR2hzUekdzebfA0iXlu+ C1C9U4ZxChufaQI+QT16FJUt KB01mUNarBUmh7tkiYm0QbPrFM KtTLT6uFofOIhno7GfLAStE50z mSZgf4P5IWLymAvyoPDeQfWn dTK1cX2tXSpqbenjf8gcspyeIr vec6pamd42nE86Z63jFVxxERUi SIFqBLPzDXOjtLkqdj6suF9e Ii8+AUFqaEY2wZJ3gS3hRhZkIf S3KLlyY153EeRpqTFySrcfr9du f0sxxEc9UqIhGZAgysNquDve SKO4l4UzFd24T26yTXnvLLJiPL WuIZGyPRHuxXpiui4rqB1lBy1+ ZM3la7ekvj15sP24rUF+PHRk AJH3eByuBObdDQYesS7sXUbhNw L2PLJyGbVdwO65fPWtOAslZh0q iTbruWkcGL3hYBZajafot608 DlJmd9vqJVXwqKCxMHmoCMJ8V3 3fd1E8UCUgGFIsJPV4pTZ3bK9x bGlnbjogbGVmdDsgdmVydGlj IHvkPZwyR934EEYjzNpmUtLxyG YwF2vhfbJEEY5uNjlvrMN+PHRk OZE6sAlbHCrfRCLeaG2dNWOs H6u3AiFtTsC8LOrzS3DxdmC5UM CgmELxKGWtpCLLcJ1ttefxt0cd dnqzXsAqAABvAEl7OWj3MMPo tTboXaNrOVR1KvX2ZYE7hIIjiD 8neChzezfatY1eTgl+RklOOjwv dGQ+NQHsBCV2zKdvGRvfYAIy oL0gGROnG3a4JfXeJvB2TZguQ6 RxzfG0UBKuwLQnVFAhoANKiW4g yjqzg1fiyrnoQwKyTGRrTCl8 PRu0WKMqkJqiSbCrVUL6HfK3LP P2iMThxD3ydPjicsdviH8gLok+ TVJOOjwvdGQ+SEErRGO7kWak RDvaDURmmU6xMYWhQ9u2DiRzCl L2NGlzK7AopoM5VGEtdSTfBQZs qIVOeO6fxrmee7tgordqQcTr NAChPUm0IEu6TAHycHipFgTcNX K8DbD1OQX9nDHhyI8fcAibzmlq gE1xRxo+GQR4VQB2OC00RM46 B6KoJlffbWDbyVB+PHRhYmxlIH uqMCNyFOamRCOkWuJcaWweKP2b Zm0mLZSkMLUrcAkczTHgZzVg b2x (more content not included)... Normal [facility] US Echocardiogram Completeon 04-15-2025 US Echocardiogram Complete APPROVED REPORT EXAM: Comprehensive 2D, Doppler, and color-flow Echocardiogram BSA: 1.87 m2BP: 110/80 mmHg Indications: S/P Tricuspid Valve Repair Past Med. Hx: COPD, Emphysema, PAD, Someday Smoker Other Information Study Quality: Very Technically Difficult. Technically limited study due to lung disease, poor acoustic windows,and body habitus. Conclusion Left ventricular systolic function is normal. Right ventricle is moderately dilated. Right atrium is moderately dilated. There is moderate tricuspid regurgitation. The right atrial pressure is estimated at 15 mmHg. Right ventricular systolic pressure is estimated at 61.8 mmHg. There is moderate pulmonary hypertension. Left Ventricle The left ventricle is normal size. There is normal left ventricular wall thickness. Left ventricular systolic function is normal. LVEF is 60-65%. The LV global longitudinal strain is -17.5%. There is normal LV segmental wall motion. There is grade 1 LV diastolic dysfunction. Right Ventricle Right ventricle is moderately dilated. The RV global longitudinal strain is -22.2% Atria The left atrium size is normal. Right atrium is moderately dilated. Aortic Valve Aortic valve is trileaflet. Sclerosis without stenosis. There is no aortic valvular stenosis. Trace aortic regurgitation. Mitral Valve The mitral valve is normal in structure. There is no mitral valve regurgitation noted. Tricuspid Valve Tricuspid valve appearance consistent with repair. There is moderate tricuspid regurgitation. The right atrial pressure is estimated at 15 mmHg. Right ventricular systolic pressure is estimated at 61.8 mmHg. There is moderate pulmonary hypertension. Pulmonic Valve The pulmonary valve is normal in structure. Great Vessels The aortic root is normal in size. The IVC is dilated and collapses <50% with inspiration. Dilated IVC with poor inspiration collapse is consistent with elevated right atrial pressure. Pericardium There is no pericardial effusion. 2D Dimensions RV Minor (Base)4.71 cmLV EDV (Teich) 64.07 mL IVSd 0.88 cm LV ESV (Teich) 23.48 mL LVDd 3.85 cm Left Atrium 2.32 cm PWd 0.93 cm Aortic Root 3.53 cm LVDs 2.55 (2.1 - 4.0 cm) LV Ztiy553.63 g LVOT Diameter 1.87 cm IVC2.69 (<= 2.1cm) M-Mode Dimensions TAPSE 1.8 (>1.7) IVC2.64 cm LV Volume - Method of Disks (More[place]'s) Single Plane 2D LV VolumesBiplane 2D LV Volumes LV EDV A4C65.1 mLLV EDV BP63.98 mL LV ESV A4C24.7 mLLV ESV BP24.1 mL LVEF(%) A4C62.1 %LVEF(%) BP62.38 % LV EDV A2C62.0 mLLV EDV BP Index34.14 mL/m2 LV ESV A2C22.2 mLSV (BP)39.91 mL LVEF(%) A2C64.2 %SV (BP) Index21.30 mL/m2 CO BP3.3 L/min Left Atrium Volume Systole (Method of Disks) Single Plane 4 CH 14.37 mLBiplane LA Usfyjg18.81 mL Single Plane 2 CH44.38 mL Right Atrium Area Systole RA Systolic Area A4C19.49 cm2RA Systolic Vol A4C50.70 mL Aortic Valve AoV Peak Velocity0.83 m/sLVOT Peak Velocity0.65 m/s AO Mean Velocity0.57 m/sLVOT Mean Velocity0.45 m/s AO Peak PG2.78 mmHgLVOT Peak PG1.67 mmHg AO Mean PG1.44 mmHgLVOT Mean PG0.92 mmHg AO V2 VTI14.68 cmLVOT V1 VTI13.83 cm FLORA (Vmax)2.14 cf0KTIQ Area 2.76 cm2 FLORA (VTI)2.60 cm2SV (LVOT) 38.16 mL Indexed FLORA (VTI)1.39 cm2/m2 Mitral Valve MV E Max Velocity0.38 m/sMV PHT82.04 ms MV A Max Velocity0.54 m/sMVA (PHT)2.68 cm2 E/A Ratio0.70 MV Decel. Zbsz008.89 ms TDI Med e' Velocity6.11 cm/sMV E / Medial e' 6.14 Lat e' Velocity6.44 cm/sMV E / Lateral e' 5.83 TV S'13.08 cm/s Pulmonary Valve PV Peak Velocity0.74 m/sPV Peak PG2.21 mmHg PV Mean PG1.19 mmHg Tricuspid Valve TR Peak Velocity3.42 m/sRAP Yoozzbcv63.00 mmHg TR Peak PG46.85 guRnGQQU21.85 mmHg Final Signed (Electronic Signature): Kleber Sandoval MD 04/16/25 9:22 am Technologist: MILADIS SELBY [facility] Provider Orderson 04-10-2025 Provider Orders [id number] [facility] Coding Summaryon 04-05-2025 Coding Summary HTMLBase 64 PvmqrirzTSo7nUy+PGhlYWQ+PE 3DXAHzO06sjVPnsA5uP2UDNLgP EanzCVGDSDdLJbKwhpOkMH2gaN NjZXJu IC8+CC2wIOKnFeelmJLcm6E4aG I3J89qxf2lTAfyhWD2NZXpIlJp jqnxa3qmkXy9JPhlJpteLiMj ZNLbhJ31LOJ6fH98Yf60sKXbbB Rzv4japGn1UgPhSTEbWGH7lYeq YMnwa1QxOXDnC99knPJuw9H5 DCTeyZzvnVCdQeWjcLS8gG2wIE ihqitmt8vtfobgLpe0ph49lWXn y8E6xGD5O1UelsD6SNFvyQFl MdqbpZWZyO7rxdgih2isyqklQb CfITThGWe3TVq0GGStzJqkNtWo UC21CYQ4PBPgfnRtU3OmXRPl sTgcDjF1g2H7Xo8JR8MWPtuzJ7 VNTUFSWTwvdGQ+IC69lo87H6Ol CguzOnx3ZNBkKXK7dOL4oL5j JXPvJTtdy9X9wKS6E1TujjFrzl 9uw2qyNVMhTIlfK74khWOfr0R5 SPNvuZW2IFCkfRhrFsEmrF91 Oyc+GXVvhCcrk1CwMbwuy5mbz7 uusTd1LtcbOVAbchUoaHtsZDX4 d3PfOx8rUKOekMS0tYW5nQ7l LaQdWjL5VDyfL351SaEylRQtCd tjY94dB2ZblUM+ZMJxBlv9BLPi hOcsVD9yX8LoZNXjvfeddOOf hNtfHO9pRSUxrebvNPDngL4nQL EiO2e0IrJyBlB9HNtzE4KuFEMr rtfeDw38aI8uVrPvNoB1QIoq H5LrpjY7NXFixFAxMYxaJYD2O8 1rv8M7GQOsAWYzMLF2yII3qW5z bGlnbjogbGVmdDsgdmVydGlj UFdsENneV540IAYrhEmuNmAvQX luZyBEYXRlOiAgMDcvMjUvMjAy NTwvdGQ+ACGaSHR9mUpbFCLi rOWjSHvyKi0jgHrrlKcdBL5nEG ShkrkcUWMtsU5pNBAydTZisWkr ZV7hNDUhrtwqa858TuUvPPQ9 SIEbiRSmJ8PurC8hHrXwRMMcDR NlD7YdyJDcKVypP092FUlmEpC0 DEEhexZiF1AlYUFoiCieIoU3 w3K6Oc0Oq8AbzgumF9VchRPzNi CvYnnyEWj9T1ExNknmwBP+PC90 KDIjQX54BRm0SNJ7nFodITuh GLHxU1IjpK4aTpCrRZEwOTSmJe c+PHRhYmxlIHdpZHRoPScxMDAl DxTqfJwgOP6zUi2wTBNrEELn aLrifNKqDsGdd9flLPZsVOpvSL 1bnXkuX6PlaDZ3ZCQnm6h8Pk05 T64qM6AvlFC+GCRgxIC9dNL8 aS1bIoTfZzV3XShfN668PmEddZ ZiIexrl2jmc6vqsPy5IsG8VJRh ecEtdUgvGJI1s3EuKy96J53e IHdpZHRoPSIxNSUiIHZhbGlnbj 2ylF2oPc3+SNUsmRL1eZS4gN5h FbBuKfZ5IHohQ100NpYztEUe Xkvdc7rhi0jcwFy1OjWjKHRegn YlnHbwSCB7e0YjQr52A7DhjQsf w0WcGnn6ns27cQBjt2B8uRO4 A6QgUEVcoieefLNbqJttES8zVE WipskwTIQoeE4bZXToB9f8UiPl OaB5FMrmF7HnyrW6GSUanYYd LPBmkWYSnS7fbcrfv9umnbdwYm EvTKJeJNp1OBg1RTJgiPuzVfSz ROH6IrM9UXA6eAKpuR8rvXjw vkfenX8yWph+BEY6eHDrwVFVAV 1lOjwvdGQ+ZHBkTFW6qFhtHBwp TLCzbW2cIOEzM5t1BjHkUzQ4 DUpdB3VogeP9WHVdbVMaVUFwfV UUrG5tuagme2sjjklnEuLoNMLj XYp0GRo6MHJgeIinIvPpLNJ9 GqL0NRT6oIIrrE7nvOglwurfqL 9wOyc+CkuoeDxxRXE7FTs2M6Ig Cam3DJCltResFL9ulZJfMNew Kh1pxSntuZhbDO4yZPCirvfby0 70WlHve4duLRYowETgXWrgFBC3 M30qv6O6ZBWzQZNhTDU0wQU4 rN0vzMbusrpgtDZxmXqeuvEidO uwBCpwCCjtF327EKGmkSqlGtBb AXl6B0RmXqm4EOTqeHebVU0j dBSsMRuoGi1weFnygEseNY8nBB Qbfhwjo609DpSmr8ajYIGoeSZt WRmwEBL3F68vs1R0COEdPFYk PWU2xOQ6gM7dbAftefnebKQucA eoiiZikPnoKGxrOPwhP852AKHc ePrbMsInmMr6Z8HsHou8CAWl eQwmIT7wlUXtESfbUd1qaBcqfM leQN0hAUMhjkfod252OvIvh6qy RHKhjRZqDNybOXB7I13yf5S5 YIRzPNMjZUD9nZO5bZ9gfVkzpe ogbGVmdDsgdmVydGljYWwtYWxp G636IUBnmRazUoQvtRugczEc HWcpENz3Z5QoFdwurQK+PC90YW GlBJ83pXBheJWgi4inyIe1NyXu XRJuLWR3pWxlGKsmd2PyHTSl D49uqDFse4Q0PNRznGboeQJqJp JsySA2uT5tKJgolarvg0udbepr Frqeu7gale76rY37C04yZMsq OLIeVPZeTTOxFWPopFisll8yqL 9wIi8+IKNmbQM9cUR0lJ6cPITj JwO6TPykB180JoObuLJdHkux a9bev0xrtMj1XxP7RDJgusMedG zqOSC1c7WiRy61W36qNMhvEYHb FZBeMGNxFRFxrZvije1taT5p Ii8+HSJxtTI1lMQ5gI5jHsZfOv S3LYfdA137SfOsrDHxTlhtJ09b T1GjsMA+GKYuThc8DFXnxVvm OK9wwKKkWRqrUm8lDRK3DaRdCx BpRWxlZ5QpLKJaizabwvrguZT9 CBZmOROemE76Vn5nrYngGNAl nMQUpU1twmsvj0xjodzbHcYwSG AhPQe3TUf6FQUbeXjyGmNfZAN4 TtT3HFD9qNTasN5kxQpeppdw dR9lQ1IpRJJhutunWt36vK5uHi MaQxI6FMqbGuv+EL9SQ2MMYRLF XMPNXQFDIDL3H5UrTvk0AZKb sZjlJI2orCWjUNlrFf5qpSfbfP spUV8hHWBguletTMUbrT3fVISb uJCsjRquBS0dBSBkimpjc618 RnTjQGC2DYYbyQYsL2YkiH9oGa LjEGRzYKJqH8CoyJFdGZqmZ206 IZykIiG7HAMdonGcN5BjGVOi tLgaOsC4k0H6Bi9qCO6lGB5bTM H2UT12AG44jECch0M1fRV7Q4Ns BVBgzpnbvivuhVT2PIWfLISp nF24yMIbQArzZl3kz5O6z242YL UsRECemF34Mh8klXrqZUUvoLHM iD8aengep0mpafguAeRuBTWz LNo4LDn2JAQctDatBgFmATJ2Af Y3NNM9dIWvpJ8ofFrhweynbM1j Oyc+MiYcUEGfdyZ8P2QcWif9 YDAbmTalGS7gpUXaHMgoHx9pjK pkoEaoMT2zTVHwffaaMLXlcW5a GIWieSTcrBcgGD7aOSByaciy i114ZmTuFZW6TWCtnSRxC2LofR 3aAwRlRCBjVCRsV2XekFTjGGwp Q426CPkgYoK7VGWrokXwS2Wc WFZjnSfpOqP4s5N0Iu4BWLmGHW 64TQ94zSJef5O4cGL3N7AcNKXd zyoavkzmvPO2UXZlBKYzmJ23 dZKrLVtnPn0ps4A9t041PKIiFR PnuP28Vg8suCheGDPuqYZAiO3s wvlod1dihisuAqMsCNRpOSe3 FPd3YVNxpWquGxXySZD8TyQ7EJ N7pLBoeU4smAbqxiqumR0uNoh+ YO6eexdnxtR6TT20TV75C7Nk PjwvdGFibGU+PHRhYmxlIHdpZH ZpQMtpMUSiMcIljDafIT8eNi1l MTGzOJKjcJfyoESyDkUrt3qi QRUiREssFI4kuGisK4LrqXV6VO Mva1k0Zz18N19oQ2EexUV+PGNv qPS6nOQ9yL6xIcKsCfR5PLso V691XgBeiABgCszxc2xje4zyeY s4EoGgKTEvjsGuwUfaGJY0x7Wk Pr05Q29tDXbnUIXsSOXmODXw ZTYukEflnv6wdC5pXt9+PGNvbC Z0dTW1yM0kTuLrOmB6NTdbQ537 ViZdiPVaRwlbS57fA6AsfYG+ RJSeDvq1ANUwsNsoUE8npVEhHX agNz1iHDA2NzTjJaJkOZfkO4Kd IHPmnjjixjwozYC5IWGfSORz vE23Hk8naOgtUi5kTLUdPSG7CA YhxPAbE9NrrI2bEaBcTYXnXUCl F2NlqZAwJAlhV768GPniAkQ8 TRXyswSsG0ZiZINgwFqeXeE9t4 W7Xb4UxPnvtGWeUL4hDyNqOTn5 B7GqKiz1XEUhpAkcPH5ggIXj PQonWq8mrFupgAlmUK0eJSXdly vqg190NhKof0csIEQneFGsHTui CWO8B53mr0O8OPXbODRoIFX8 aAM2pB4tqVtljyjotTHfpCuqmo ZbbXjnLYbcJFmjJ620OEEugBhi DtHWWrk9B0McBtc4JJJivSkc WL5lsRUdCRhsSu2msIhpyZreOP 6zXNKzzvuat986QmTri3ptVJRi aZDoVLzhLYO7S00lo5C9WPWa RUAuUFL4kHG5aF7jkTnuyrbsaN FfoOlaxbHkaPjdGDoqRKjmP901 NDRfgKptRf3MEcf5T2FbYpm5 AIBaxIxtHC5qhULtFPiqRf5syP hepEtaUD9zMRZrphjiw537FkZb n0heMPNskKZxRBqzFYS8T96a v6I8FIBvEJIiNUT4eOD9iK7gwZ lnbjogbGVmdDsgdmVydGljYWwt OMndR625LHMslTxsWbYemAEp OjwvdGQ+ZN63zv56X8FvRrmzPi i1ZWPcTTA7iPB1jR1jTEMnWYti f2I5tGI8C9JffjZdpz7wm1sg YXB (more content not included)... [facility] Coding Summaryon 04-03-2025 Coding Summary HTMLBase 64 MkpdwbfpYSx0eEe+PGhlYWQ+PE 3MEOHoD10xbUUikH6aP2GMALtJ SxsyGUEAAIsNVyZrhoGjBT5vcA NjZXJu IC8+QU7nFTXeHjivxPTfl2E6tC O6Q57qjd8rDGpbvOM8LVYeDgKn zzkid2mbsAg1MYekUnhqHpYk AZXioU63LXR1hZ21Fc54tYKniV Akh1dgaDd3UrKpNXSiNRD5sXsa WOnji2FvFXBeH52ktYEvk3J9 PGZrzRkjwEBeWyHjxBP9jJ0rBB mlwbrep1ajrmwpYfe0xs26kDGx m9J9qWO2E3KnxhC8JISxtSRa TwbywEGCvM2bltlzd2rzepqwJa HmWPTvURs7TUo6GHSvyPtkMjBz RI66ZJA8SFBijiSiP0ItTTYy aQqrTqK2y3I1Jx2GE7PNKxraE8 VNTUFSWTwvdGQ+CT05hk51B2Kl CopzRee9RVNqRHN3wTT6fU6f ATTcXPhea9E5aVX5L8VwtxVqzj 0zp1xnWGFuBRbyR47bmQOxf5A5 YLRzlZQ7CXLimQvuSfNgcH48 Oyc+DLHvyUpyx8FqSctnp1fhl6 dqfKv6HpiiUYYgztNrzRpbRBX4 x4LmSy4zVUInrYG3tQL9aZ6m LfEfPvK1CGwsZ611SfLgnQFwQc dcC02pR3LlsEN+ZEZeJmx8RLFw lUvtMU9oP8XwCVGqkgpysRSm xKvhIQ9bJWNhxwmyHYXgpI6vNN TjK6o4WmDsEuJ4GQjxW2MgDCMm yzqqQb24nQ6sCsTpOeP5XMki G2VqjlG2XZKryADqAOyxADW3O2 2mt3P4MZFrTIJxFTV2vIE1gC2v bGlnbjogbGVmdDsgdmVydGlj NGnoTCaaD127EZNqcEirCxIwIO luZyBEYXRlOiAgMDcvMjMvMjAy NTwvdGQ+YCOxLNL1kLltPNJn xYSnPDnkCg3mqPbbcSooIF8wBW AiaxelMWBatO7bWGNztXXweHjn RN7rCBHgreugc149CmEvEFT4 YNUatCVsP5NxlR0kStTwEYMsSI XjQ9KzhLDoUXkuJ059GIluMfA9 LVYycbUbI7AlEZQgsFrbUyH9 s8Y7Pw1Bn9NtutwrQ3OvdGXhEy HgJocuYUp3Q6TpYnntjAQ+PC90 CSKoXH56POf4YZN5bDouNRyj XZFpE7QrnT9aXzHbHJKvQBXnBm c+PHRhYmxlIHdpZHRoPScxMDAl QmKyyWkyKR5wWb0sOKGeIPYb qTjvmDOxIiVmp3oyCTSoLNiwAM 1laLdqH5YnbNR8WJCso1f1Aw26 M36jH2LxjSW+RGPosYT4uOD9 bJ4dXxSrFrS6XMerW616RkBlzK VkHruzw7pjo4bshTi4RyF6LJPj hfExxEywPCO6v4EcKz45I33s IHdpZHRoPSIxNSUiIHZhbGlnbj 4aeR3aNp6+NREctKS0kEB0sZ9u HxCrCoX6THpsT967LtRetNGk Jtupf1ain4gzcBz0XwNxKPMxtn NizSuqRMF6q0OpGr56Z2JcuUdn t9FlQrz5um90uSZeu0G5sJQ6 S4KiCWFyylfpaPZabVzfTQ8oUB IqshsgYHDupS7lCSNcL0i8OaHt NfY8HBlpU2CzrkD3KHStnQYf FALvyYGMbH9fdmsdl9nxtshpJy VoMZDzVGe8MMc8YIJelBatWiFs VFK3PwG2KZF4qJVyaC4qyQqc brwwyU3sYkm+CXC5tFTsoVGWCZ 1lOjwvdGQ+PYCsOYX5wLvnTCcf TKZezG8cMEGtV1m1RfTcVdZ0 QPhzN6DmobH6YQHszSAzJDTtuL KSdI6umpkra7wyzclxKoZeTQRi VKf7BVf5JMFhfKksCkKpABL4 NqM2FDW6fBRobA7sfDotfbjppL 9wOyc+TipodZjtPSS1BDt5B6Yb Jnp8IKGtgZlwBN4lsJSxTHmg Ri9cyUcddUuhKC2iIHAfsfoad7 38RbBqf6ztQRKzhEVhGJgwDTT8 D63tl4E3YPFpPOEoXNV1sHI9 vB5wpHvwbfnhxMNogMvnmxYomT dhRGboKZkeA683EPQixHucQmVm YOz1N6UhMxy2ETFhhPaoCE9y lXCgEWvdSa7idJknnWmmHI1vMK Kumguag383TlYdg4czUFTdkZAh AGgdLFQ8N91nl0X8AXEwOYXm VCO9xSM9tU9juZnxouymqJBvpB cdkoGqeKqyFPlbDVwfA378BOBv vXetSpZgwXv0I1BkRrm3IGTk aKjlMT1hrBBaNCdiQu4wqGrvwW tfZO6sYVMceqpww386HmVvt9wp UKMmgGViJIisXMS3H51oe2V7 BPDjNEAxSBI1dOV0eA0ecOdlqa ogbGVmdDsgdmVydGljYWwtYWxp E565ZGDpaYyaUsBduHdlwwKc PAwpAUp9L5SyHjirmGZ+PC90YW XiNJ75oVSvpFVmy2eftEp5GlYx PGFzTVB4yLrkGBjkc2JrPXIp G37hhOXwd9B2QIMrqQpqfCWnMd ZuhXD1mK0xQQdkwqssa0mnizpy Crxdc6wwvv53pY03D22jSOif TGNcDOVhWPOoBBUtvKlrjz6erN 9wIi8+XJQruSQ6mCG9pO3xVOLr OxY6JGzoD013CsNsoZAaZpza z4rhd5fmqGo1BiE7OVOkuwXfmV nlGLQ7q5YuXc19V00tAOgsZTTt SLByBKIhOJMfwVyvlh1vcP9a Ii8+ERCopQY9yMJ5aK5dFoPjZs Z5OKngW228BgMhnZNcGyteZ66b G3QrrJT+OJIeQlr5HMDfuJyj LF1cnXVtQTyrMf0vKZR6QrKjIn RcOKzzM0TeUOLtxsmrxjsqrUX2 QPUyGWLljB72Ro9cgGvvGXSd gGMZqY8vpvytz9vodztvXgMtCW XrTAo8EEo7HSBwcFgrAgQoUOF8 UmF0IRY6yTQwzG1kdSwwmizt aM6bE0YcDUBmuwsmVj87tS6jDr IyNcW5ZTfdXce+NX5DY5AXMWBW CVZLMJNSWCU9D3TtXwe1HIIl zSvhZY7vqLEoKZjcEw2slVsgbO bwTA7cMXZiufztBLIhnH4hDBOt sHRsdXgcOY6cCPOeoppmi742 VmYkPTJ0YLIuxLXsU9RsyQ1eRt XoUIRfPNZfL9UjbTNnFPntE008 TBgzBpB0ZNEcqmVqK7XhSBTf zUusTyC2k7E2Yt7dCU5rTU7pEJ E6ZB04SE11cKYet4I9vEO9M3Kh NURwdungavsyfQP4HDUeWTHa oM51pECuLJdyMf1iz6T0z330UP QdMDKreY37Bo5nsZucFFYduETE xK7geeyem6bzjcyaCyWaHLQj HIg5NGz8COTprAvdVgKqTGJ0Gp C6WLV9zHAswG0wgHkdgummiS1o Oyc+HcUyOAJkzeM1Y9OcYhc1 XUWhzVhsGZ3boESlDNgmFp4xjX blaVljBU8oPXGopeipVAFblN2l MYQrqWVquDoiTP5jRRGlavji v071UsSlWDB1QLGggMCdZ7NryI 2eEjJqZCTyGIRqH1DnpLVpJNzl B243KRlrQnN0AQPhglOrM7Nx HSXitHhsBwJ6c4C6Xg7WBEqIKB 58QF15sTKfw6U2tZT2K7XqJZGq igmydzkrpOK3KYOhIBMrcF88 rPCkFUhkMe9gm8G0m507ILXrYS WydE98Vf2oqGgrZHCzmIUPaQ4m jzclm0xovwkqZxAuEFXeCPq9 SNa4JGYkzSdgZrBvWIQ3UvM8NE C3qRNhbY4xtBlpxtnjfA3jCyt+ X4A5T3NwWppjuBO+VN50YEUu AY53qXIdaJTdm4rlkVa7QfJpSW RtTZX8iMapZVjui7IxEXRmT67e vVDsc4T4YPFfrTwjaDFdWrKq tFI7dM0fFSekayxcq6tuscprKc jac6ujai64yL77Z52xXNvpKJGp PGShWLLmOHZydQfbab3mgA3o Ii8+CKNihBX8qKX5oU8yNlUqJe Y4RYteW520GsJxmURmLeabx4xa f7nfhZq8PwBqNPEqtrRcmGlw UZP1f1KcTp65W92eDPspQPNbJE HoYERfBDHppXoilo8twY9eEc7+ OX3yj0saoz71mY13fYC+PHRk KBV4yDsyITmsAORqtB0eRJzsJg D1FUMyHhVhvC85qUMaRMglYm4b tSqstTlyIC1cAEQhwkkjx048 OjUra7zvGUZviJXwEVpjKHJ1Q7 8og0F1TDTwXJSnRBQ6yTQ5wD4o bGlnbjogbGVmdDsgdmVydGlj CHjqBJsaE977ZHZeqCpqHzLunL OnW3owzqGETS2iBbgvdKU+PHRk JVA3nZuxGLvmYSCupH9vYJEl Z8g7EyFwEqL0SMylN9KrdfF9OQ RkhPAgIMMgnXEZvA9hxzyed6wo rrnyEzTbOQOvYFj5WEo3VQWg kIdqPiOxGQQ4JeM3UUE9eJCopC 0ebKxcgccoyU8iDkg+RklOOjwv dGQ+JBFyHHK0jKabZLifMTMj oS6bSSUpK1u7UgWqWfH4ZHbaT5 QncaB2ULGuzIWaPKFnsUVAeG6r bjctt5ycdzjiUaBqBJNgENb3 PYg9KCCwrPugRoBmWFC9AmS9EW N4hVKcrQ2wyFfyrubxtA5pDud+ TVJOOjwvdGQ+NBEbHBT7aJkk IOoxCRFvsU8lVJFvR2p8GeJmSb C3TQtnX3VfdiU0EZRdsLUuWFWq bDZLuV7hsjiai4vuximcKcMw ROIcVMu5CXm4ONSpfRffAkIsNC I5KuT1IKJ8qNBwhF1quEwcdfad rZ7rPvn+[id number] S9UoSxsheZKwhEZ+PHRhYmxlIH cfVURtELpuGGXdBbPgyEleSI9o Me4cXDAvVPMalMxjwTZeSaTq b2x (more content not included)... Normal [facility] BASIC METABOLIC PANELon 03-12 Anion gap [Moles/Vol] 8 mmol/L Normal 5-15 [facility] Comment on above: Performed By: #### I BC #### [facility] ([id number]) [address] [place] [address] Calcium [Mass/Vol] 8.7 mg/dL Normal 8.5-10.5 [facility] Comment on above: Performed By: #### I BC #### [facility] ([id number]) [address] [place] [address] Chloride [Moles/Vol] 101 mmol/L Normal 98-109 [facility] Comment on above: Performed By: #### I BC #### [facility] ([id number]) [address] [place] [address] CO2 [Moles/Vol] 32 mmol/L Normal 22-32 [facility] Comment on above: Performed By: #### I BC #### [facility] ([id number]) [address] [place] [address] Creatinine [Mass/Vol] 0.81 mg/dL Normal 0.60-1.30 [facility] Comment on above: Result Comment: METH OD TRACEABLE TO IDMS STANDARD Performed By: #### I BC #### [facility] ([id number]) [address] [place] [address] EGFR (CKD-EPI) NON-RACE DEPENDENT >^90 Normal >=60 [facility] Comment on above: Result Comment: Repo rted eGFR is based on the CKD-EPI 2020 equation that does not use a race coefficient. Performed By: #### I BC #### [facility] ([id number]) [address] [place] [address] Glucose [Mass/Vol] 77 mg/dL Normal 65-99 [facility] Comment on above: Performed By: #### I BC #### [facility] ([id number]) [address] [place] [address] Potassium [Moles/Vol] 4.1 mmol/L Normal 3.5-5.0 [facility] Comment on above: Performed By: #### I BC #### [facility] ([id number]) [address] [place] [address] Sodium [Moles/Vol] 141 mmol/L Normal 134-146 [facility] Comment on above: Performed By: #### I BC #### [facility] ([id number]) [address] [place] [address] Urea nitrogen [Mass/Vol] 42 mg/dL High 5-27 [facility] Comment on above: Performed By: #### I BC #### [facility] ([id number]) [address] [place] [address] Basic Metabolic PanelOrdered By: Delia Byrd on 03-27-2025 Anion gap [Moles/Vol] 8 mmol/L 5 - 15 mmol/L [facility] Calcium [Mass/Vol] 8.7 mg/dL 8.5 - 10. 5 mg/dL [facility] Chloride [Moles/Vol] 101 mmol/L 98 - 10 9 mmol/L [facility] CO2 [Moles/Vol] 32 mmol/L 22 - 32 mmol/L [facility] Creatinine [Mass/Vol] 0.81 mg/dL 0.60 - 1.30 mg/dL [facility] Comment on above: METHOD TRACEABLE TO IDMS STANDARD EGFR Non-Race Dependent - PINF [facility] Comment on above: Reported eGFR is bas ed on the CKD-EPI 2020 equation that does not use a race coefficient. Glucose [Mass/Vol] 77 mg/dL 65 - 99 mg/dL [facility] Interpretation and review of laboratory results Abnormal [facility] Potassium [Moles/Vol] 4.1 mmol/L 3.5 - 5.0 mmol/L [facility] Sodium [Moles/Vol] 141 mmol/L 134 - 146 mmol/L [facility] Urea nitrogen [Mass/Vol] 42 mg/dL High 5 - 27 mg/dL [facility] CBC WITH AUTO DIFFERENTIALon 03-27-2025 BASOPHILS ABSOLUTE COUNT (10*3/UL) BY AUTOMATED COUNT 0.0 10*3/uL Normal 0.0-0.2 [facility] Comment on above: Order Comment: 2 caasndra rs after procedure Performed By: #### I BC #### [facility] ([id number]) [address] [place] [address] BASOPHILS RELATIVE PERCENT BY AUTOMATED COUNT 0.5 % Normal [facility] Comment on above: Order Comment: 2 casandra rs after procedure Performed By: #### I BC #### [facility] ([id number]) [address] [place] [address] CELLAVISION DIFFERENTIAL TYPE AUTOMATED DIFFERENTIAL Normal [facility] Comment on above: Order Comment: 2 casandra rs after procedure Performed By: #### I BC #### [facility] ([id number]) [address] [place] [address] Eosinophils (Bld) [#/Vol] 0.3 10*3/uL Normal 0.0-0.4 [facility] Comment on above: Order Comment: 2 casandra rs after procedure Performed By: #### I BC #### [facility] ([id number]) [address] [place] [address] EOSINOPHILS RELATIVE PERCENT BY AUTOMATED COUNT 3.9 % Normal [facility] Comment on above: Order Comment: 2 casandra rs after procedure Performed By: #### I BC #### [facility] ([id number]) [address] [place] [address] Erythrocyte distribution width (RBC) [Ratio] 13.3 % Normal 11.5-15 [facility] Comment on above: Order Comment: 2 casandra rs after procedure Performed By: #### I BC #### [facility] ([id number]) [address] [place] [address] Hematocrit (Bld) [Volume fraction] 48.7 % Normal 39-50 [facility] Comment on above: Order Comment: 2 casandra rs after procedure Performed By: #### I BC #### [facility] ([id number]) [address] [place] [address] Hemoglobin (Bld) [Mass/Vol] 16.1 g/dL Normal 13-17 [facility] Comment on above: Order Comment: 2 casandra rs after procedure Performed By: #### I BC #### [facility] ([id number]) [address] [place] [address] LYMPHOCYTES ABSOLUTE COUNT (10*3/UL) BY AUTOMATED COUNT 2.0 10*3/uL Normal 1.0-3.5 [facility] Comment on above: Order Comment: 2 casandra rs after procedure Performed By: #### I BC #### [facility] ([id number]) [address] [place] [address] LYMPHOCYTES RELATIVE PERCENT BY AUTOMATED COUNT 30.5 % Normal [facility] Comment on above: Order Comment: 2 casandra rs after procedure Performed By: #### I BC #### [facility] ([id number]) [address] [place] [address] MCH (RBC) [Entitic mass] 32.9 pg Normal 27-34 [facility] Comment on above: Order Comment: 2 casandra rs after procedure Performed By: #### I BC #### [facility] ([id number]) [address] [place] [address] MCHC (RBC) [Mass/Vol] 33.0 g/dL Normal 32-36 [facility] Comment on above: Order Comment: 2 casandra rs after procedure Performed By: #### I BC #### [facility] ([id number]) [address] [place] [address] MCV (RBC) [Entitic vol] 100 fL Normal 80-100 [facility] Comment on above: Order Comment: 2 casandra rs after procedure Performed By: #### I BC #### [facility] ([id number]) [address] [place] [address] MONOCYTES ABSOLUTE COUNT (10*3/UL) BY AUTOMATED COUNT 0.6 10*3/uL Normal 0.0-0.9 [facility] Comment on above: Order Comment: 2 casandra rs after procedure Performed By: #### I BC #### [facility] ([id number]) [address] [place] [address] MONOCYTES RELATIVE PERCENT BY AUTOMATED COUNT 9.5 % Normal [facility] Comment on above: Order Comment: 2 casandra rs after procedure Performed By: #### I BC #### [facility] ([id number]) [address] [place] [address] NEUTROPHILS ABSOLUTE COUNT BY AUTOMATED COUNT 3.7 10*3/uL Normal 1.5-6.6 [facility] Comment on above: Order Comment: 2 casandra rs after procedure Performed By: #### I BC #### [facility] ([id number]) [address] [place] [address] NEUTROPHILS RELATIVE PERCENT BY AUTOMATED COUNT 55.6 % Normal [facility] Comment on above: Order Comment: 2 casandra rs after procedure Performed By: #### I BC #### [facility] ([id number]) [address] [place] [address] Platelet mean volume (Bld) [Entitic vol] 8.6 fL Normal 7-12 [facility] Comment on above: Order Comment: 2 casandra rs after procedure Performed By: #### I BC #### [facility] ([id number]) [address] [place] [address] Platelets (Bld) [#/Vol] 163 10*3/uL Normal 150-450 [facility] Comment on above: Order Comment: 2 casandra rs after procedure Performed By: #### I BC #### [facility] ([id number]) [address] [place] [address] RBC COUNT 4.89 X10E12/L Normal 4.1-5.7 [facility] Comment on above: Order Comment: 2 casandra rs after procedure Performed By: #### I BC #### [facility] ([id number]) [address] [place] [address] WBC (Bld) [#/Vol] 6.6 10*3/uL Normal 4-11 [facility] Comment on above: Order Comment: 2 casandra rs after procedure Performed By: #### I BC #### [facility] ([id number]) [address] [place] [address] CBC auto differentialon 03-12 Basophils (Bld) [#/Vol] 0 10*3/uL 0.0 - 0.2 10*3/uL [facility] Basophils/100 WBC (Bld) 0.5 % [facility] Differential cell count method Nom (Bld) AUTOMATED DIFFERENTIAL [facility] Eosinophils (Bld) [#/Vol] 0.3 10*3/uL 0.0 - 0.4 10*3/uL [facility] Eosinophils/100 WBC (Bld) 3.9 % [facility] Erythrocyte distribution width (RBC) [Ratio] 13.3 % 11.5 - 15 % [facility] Hematocrit (Bld) [Volume fraction] 48.7 % 39 - 50 % [facility] Hemoglobin (Bld) [Mass/Vol] 16.1 g/dL 13 - 17 g/dL [facility] Lymphocytes (Bld) [#/Vol] 2 10*3/uL 1.0 - 3.5 10*3/uL [facility] Lymphocytes/100 WBC (Bld) 30.5 % [facility] MCH (RBC) [Entitic mass] 32.9 pg 27 - 34 pg [facility] MCHC (RBC) [Mass/Vol] 33 g/dL 32 - 36 g/dL [facility] MCV (RBC) [Entitic vol] 100 fL 80 - 100 fL [facility] Monocytes (Bld) [#/Vol] 0.6 10*3/uL 0.0 - 0.9 10*3/uL [facility] Monocytes/100 WBC (Bld) 9.5 % [facility] Neutrophils (Bld) [#/Vol] 3.7 10*3/uL 1.5 - 6.6 10*3/uL [facility] Neutrophils/100 WBC (Bld) 55.6 % [facility] Platelet mean volume (Bld) [Entitic vol] 8.6 fL 7 - 12 fL [facility] Platelets (Bld) [#/Vol] 163 10*3/uL [facility] RBC (Bld) [#/Vol] 4.89 10*6/uL [facility] WBC LM Ql (Sput) 6.6 [facility] Cardiac echo study Procedure Ordered By: Kiran Jason on 03-27-2025 Aortic valve Mean systole pressure gradient by US.doppler derived full Bernoulli 2 mmHg [facility] Work Phone: [phone] Aortic valve Orifice area by US 4.76 [employer] Work Phone: [phone] Aortic valve Peak systolic flow by US.doppler 94.8 cm/s [employer] Work Phone: [phone] AV peak gradient 3.59 mmHg [employer] Work Phone: [phone] AV Velocity Ratio 0.97 [facility] [employer] Work Phone: [phone] AV VTI 19.9 cm [employer] Work Phone: [phone] E wave deceleration time 246 msec [employer] Work Phone: [phone] E/A ratio 1.14 [employer] Work Phone: [phone] Est. RA pressure 8 mmHg [employer] Work Phone: [phone] 46 % 28 - 44 % [employer] Work Phone: [phone] Inferior Vena Cava Diameter 2.2 cm [employer] Work Phone: [phone] Interventricular Septum Diastolic Thickness by 2D 7 cm [employer] Work Phone: [phone] IVC proximal 22 cm [employer] Work Phone: [phone] IVS 0.7 cm 0.6 - 1.1 cm [employer] Work Phone: [phone] Left Ventricle Mass [id number] g [employer] Work Phone: [phone] LV ESV A4C 32.2 mL [employer] Work Phone: [phone] LV RWT 2D 43.9 [employer] Work Phone: [phone] LVIDd 4.1 cm 4.25 - 5.90 cm [employer] Work Phone: [phone] LVIDs 2.2 cm 2.52 - 3.81 cm [employer] Work Phone: [phone] LVOT diameter 2.5 cm [employer] Work Phone: [phone] LVOT peak shantelle 0.82 m/s [employer] Work Phone: [phone] LVOT peak VTI 19.3 cm [employer] Work Phone: [phone] LVOT stroke volume 94.74 ml [employer] Work Phone: [phone] MV Peak A Shantelle 45.4 cm/s [employer] Work Phone: [phone] MV Peak E Shantelle 51.8 cm/s [employer] Work Phone: [phone] MV pressure 1/2 [facility] Work Phone: [phone] MV TDI E' (medial) 6.42 cm/s [facility] Work Phone: [phone] MV valve area p 1/2 method 3.06 cm2 [employer] Work Phone: [phone] PW 0.9 cm 0.6 - 1.1 cm [employer] Work Phone: [phone] RA area 23.6 cm2 [employer] Work Phone: [phone] RV diastolic dimension (basal) 41 mm [employer] Work Phone: [phone] RV Peak Systolic Pressure 50 mmHg [employer] Work Phone: [phone] TAPSE 2.26 cm [employer] Work Phone: [phone] TDI 11.9 cm/s [employer] Work Phone: [phone] TR peak gradient 47.33 mmHg [employer] Work Phone: [phone] TR Peak Shantelle 3.4 m/s [employer] Work Phone: [phone] TV mean gradient 0 mmHg [employer] Work Phone: [phone] TV PG 1 mmHg [employer] Work Phone: [phone] TV Valve Area by Continuity Equation 5.01 cm2 [employer] Work Phone: [phone] TV VTI 18.9 cm [employer] Work Phone: [phone] Valve area - Index 2.7 [facility] [employer] Work Phone: [phone] ZLVIDD -2 [facility] [employer] Work Phone: [phone] ZLVIDS -2.7 [facility] [employer] Work Phone: [phone] [facility] [employer] Work Phone: Cardiac echo study Procedure on 03-27-2025 Left Ventricle: Left ventricle appears normal in size. Systolic function is hyperdynamic with an ejection fraction over 70%. Right Ventricle: Right ventricular size is mildly dilated. Systolic function is normal. Right Atrium: Right atrium is mildly dilated. Tricuspid Valve: There is mild to moderate regurgitation, best seen in the short axis inflow views. RVSP calculated at 50 mmHg. RVSP is based on RA pressure of 8 mmHg. There is a triclip on the septal and anterior tricuspid valve leaflets. Tricuspid Valve: There is moderate pulmonary hypertension. Left Ventricle Left ventricle appears normal in size. Wall thickness is normal. Systolic function is hyperdynamic with an ejection fraction over 70%. See wall score diagram for wall motion abnormalities. Lateral E' is 11.90 cm/s. Medial E' is 6.42 cm/s. Right Ventricle Right ventricular size is mildly dilated. The right ventricular basal diameter is 41.0 mm. Systolic function is normal. Normal tricuspid annular plane systolic excursion. Left Atrium Left atrium is normal in size. Right Atrium Right atrium is mildly dilated. The right atrial area is 23.6 cm2. IVC/SVC The right atrial pressure is estimated at 8 mmHg. Mitral Valve Mitral valve structure is normal. There is trace regurgitation. There is no evidence of mitral valve stenosis. Tricuspid Valve There is mild to moderate regurgitation, best seen in the short axis inflow views. There is no evidence of tricuspid valve stenosis. The right ventricular systolic pressure estimated by tricuspid regurgitation Doppler jet. The right ventricular systolic pressure is moderately elevated. RVSP calculated at 50 mmHg. RVSP is based on RA pressure of 8 mmHg. There is moderate pulmonary hypertension. There is a triclip on the septal and anterior tricuspid valve leaflets. Aortic Valve The aortic valve is trileaflet. The leaflets are not thickened and exhibit normal excursion. There is trace regurgitation. There is no evidence of aortic valve stenosis. Pulmonic Valve Pulmonic valve structure is grossly normal. There is trace regurgitation. There is no evidence of pulmonic valve stenosis. Ascending Aorta The aortic root is normal in size. Pericardium There is no pericardial effusion. Study Details A complete echo was performed using complete 2D, color flow Doppler and spectral Doppler. During the study the apical, parasternal, subcostal and suprasternal views were captured. Overall the study quality was adequate. BP: 102/61 Wall Scoring Baseline Score Index: 1.00 The following segments are hyperkinetic: basal anteroseptal, basal inferoseptal, basal inferolateral, basal anterolateral, mid anteroseptal, mid inferoseptal, mid inferolateral, mid anterolateral, apical septal, apical lateral and apex. Other segments could not be evaluated. [facility] Radiology Study observation (narrative) [facility] Hemoglobin and hematocrit, b [facility] 03-27-2025 Hematocrit (Bld) [Volume fraction] 47 % 39 - 50 % [facility] Hemoglobin (Bld) [Mass/Vol] 15.8 g/dL 13 - 17 g/dL [facility] Interpretation and review of laboratory results Normal [facility] ABO Rh [place] 03-26-2025 ABO and Rh group Nom (Bld) O [facility] ABO and Rh group Nom (Bld) Positive [facility] HEMOGLOBIN AND HEMATOCRIT, B [facility] 03-26-2025 Hematocrit (Bld) [Volume fraction] 47.0 % Normal 39-50 [facility] Comment on above: Performed By: #### I BC #### [facility] ([id number]) [address] [place] [address] Hemoglobin (Bld) [Mass/Vol] 15.8 g/dL Normal 13-17 [facility] Comment on above: Performed By: #### I BC #### [facility] ([id number]) [address] [place] [address] No Panel Informationon 03-26 Interpretation and review of laboratory results Abnormal [facility] POCT HMCHRN CLOT TIME LRon 0 03-26-2025 HMCHRN CLOT TIME LR 345 s High 89-169 [facility] Comment on above: Performed By: #### I BC #### [facility] ([id number]) [address] [place] [address] HMCHRN CLOT TIME LR 377 s High 89-169 [facility] Comment on above: Performed By: #### I BC #### [facility] ([id number]) [address] [place] [address] HMCHRN CLOT TIME LR 299 s High 89-169 [facility] Comment on above: Performed By: #### I BC #### [facility] ([id number]) [address] [place] [address] HMCHRN CLOT TIME LR 304 s High 89-169 [facility] Comment on above: Performed By: #### I BC #### [facility] ([id number]) [address] [place] [address] POCT HMCHRN Clot Time LRon 0 03-26-2025 ACT Diatomaceous earth induced (Bld) 304 s High 89 - 169 s [facility] Interpretation and review of laboratory results Abnormal [facility] ACT Diatomaceous earth induced (Bld) 299 s High 89 - 169 [facility] ACT Diatomaceous earth induced (Bld) 377 s High 89 - 169 s [facility] ACT Diatomaceous earth induced (Bld) 345 s High 89 - 169 s [facility] REPEATED ABORHon 03-26-2025 ABO_INTEP O Normal [facility] Comment on above: Performed By: #### A KHALIDA #### [facility] ([facility]) [address] [place] [address] VIR RH_INTEP Positive Normal [facility] Comment on above: Performed By: #### A KHALIDA #### [facility] ([facility]) [address] [place] [address] VIR Structural Heart Procedureon 03-26-2025 Successful tricuspid Cruzito for primary TR, reducing TR from torrential to trivial to mild XPER [facility] Radiology Study observation (narrative) [facility] XR CHEST 1 VWon 03-26-2025 XR CHEST 1 VW XR CHEST 1 VW CLINICAL INFORMATION: Severe tricuspid valve regurgitation COMPARISON: None. VIEWS: 1. FINDINGS: Cardiac and mediastinal shadows are normal. No infiltrates. No effusions. No pneumothorax. No free air below the diaphragm. IMPRESSION: No radiographic evidence for acute cardiopulmonary disease. Finalized by Kati Sainz MD on 03/26/2025 7:17 PM Normal [facility] XR Chest Single viewon 03-26 CLINICAL INFORMATION : Severe tricuspid valve regurgitation COMPARISON: None. VIEWS: 1. FINDINGS: Cardiac and mediastinal shadows are normal. No infiltrates. No effusions. No pneumothorax. No free air below the diaphragm. IMPRESSION: No radiographic evidence for acute cardiopulmonary disease. Finalized by Kati Sainz MD on 03/26/2025 7:17 PM [facility] Kati Sainz MD - 03/26/2025 CLINICAL INFORMATION: Severe tricuspid valve regurgitation COMPARISON: None. VIEWS: 1. FINDINGS: Cardiac and mediastinal shadows are normal. No infiltrates. No effusions. No pneumothorax. No free air below the diaphragm. IMPRESSION: No radiographic evidence for acute cardiopulmonary disease. Finalized by Kati Sainz MD on 03/26/2025 7:17 PM [facility] Radiology Study observation (narrative) [facility] XR Chest Single viewOrdered By: Kati Sainz on 03-26-2025 [facility] Work Phone: ALBUMINon 03-22-2025 Albumin [Mass/Vol] 4.4 g/dL Normal 3.2-5.3 [facility] Comment on above: Performed By: #### A LB #### [facility] ([facility]) [address] [place] [address] VIR B-TYPE NATRIURETIC PEPTIDEon 03-22-2025 Natriuretic peptide B (Bld) [Mass/Vol] 81 pg/mL Normal <=100 [facility] Comment on above: Performed By: #### B [employer]OR #### [facility] ([facility]) [address] [place] [address] VIR BASIC METABOLIC PANELon 07- Anion gap [Moles/Vol] 11 mmol/L Normal 5-15 [facility] Comment on above: Performed By: #### B MP #### [facility] ([facility]) [address] [place] [address] VIR Calcium [Mass/Vol] 10.2 mg/dL Normal 8.5-10.5 [facility] Comment on above: Performed By: #### B MP #### [facility] ([facility]) [address] [place] [address] VIR Chloride [Moles/Vol] 99 mmol/L Normal 98-109 [facility] Comment on above: Performed By: #### B MP #### [facility] ([facility]) [address] [place] [address] VIR CO2 [Moles/Vol] 30 mmol/L Normal 22-32 [facility] Comment on above: Performed By: #### B MP #### [facility] ([facility]) [address] [place] [address] VIR Creatinine [Mass/Vol] 0.97 mg/dL Normal 0.60-1.30 [facility] Comment on above: Result Comment: METH OD TRACEABLE TO IDMS STANDARD Performed By: #### B MP #### [facility] ([facility]) [address] [place] [address] VIR GFR/1.73 sq M.predicted among non-blacks MDRD (S/P/Bld) [Vol rate/Area] 87 mL/min/{1.73_m2} Normal >=60 [facility] Comment on above: Result Comment: Repo rted eGFR is based on the CKD-EPI 2020 equation that does not use a race coefficient. Performed By: #### B MP #### [facility] ([facility]) [address] [place] [address] VIR Glucose [Mass/Vol] 102 mg/dL High 65-99 [facility] Comment on above: Performed By: #### B MP #### [facility] ([facility]) [address] [place] [address] VIR Potassium [Moles/Vol] 5.0 mmol/L Normal 3.5-5.0 [facility] Comment on above: Performed By: #### B MP #### [facility] ([facility]) [address] [place] [address] VIR Sodium [Moles/Vol] 140 mmol/L Normal 134-146 [facility] Comment on above: Performed By: #### B MP #### [facility] ([facility]) [address] [place] [address] VIR Urea nitrogen [Mass/Vol] 31 mg/dL High 5-27 [facility] Comment on above: Performed By: #### B MP #### [facility] ([facility]) [address] [place] [address] VIR CBC (NO DIFF)on 03-22-2025 Erythrocyte distribution width (RBC) [Ratio] 13.5 % Normal 11.5-15 [facility] Comment on above: Performed By: #### C BC #### [facility] ([facility]) [address] [place] [address] VIR Hematocrit (Bld) [Volume fraction] 58.4 % High 39-50 [facility] Comment on above: Performed By: #### C BC #### [facility] ([facility]) [address] [place] [address] VIR Hemoglobin (Bld) [Mass/Vol] 19.4 g/dL High 13-17 [facility] Comment on above: Performed By: #### C BC #### [facility] ([facility]) [address] [place] [address] VIR MCH (RBC) [Entitic mass] 32.7 pg Normal 27-34 [facility] Comment on above: Performed By: #### C BC #### [facility] ([facility]) [address] [place] [address] VIR MCHC (RBC) [Mass/Vol] 33.2 g/dL Normal 32-36 [facility] Comment on above: Performed By: #### C BC #### [facility] ([facility]) [address] [place] [address] VIR MCV (RBC) [Entitic vol] 99 fL Normal 80-100 [facility] Comment on above: Performed By: #### C BC #### [facility] ([facility]) [address] [place] [address] VIR Platelet mean volume (Bld) [Entitic vol] 8.4 fL Normal 7-12 [facility] Comment on above: Performed By: #### C BC #### [facility] ([facility]) [address] [place] [address] VIR Platelets (Bld) [#/Vol] 196 10*3/uL Normal 150-450 [facility] Comment on above: Performed By: #### C BC #### [facility] ([facility]) [address] [place] [address] VIR RBC COUNT 5.92 X10E12/L High 4.1-5.7 [facility] Comment on above: Performed By: #### C BC #### [facility] ([facility]) [address] [place] [address] VIR WBC (Bld) [#/Vol] 5.8 10*3/uL Normal 4-11 [facility] Comment on above: Performed By: #### C BC #### [facility] (TT) [address] [place] [address] VIR PROTIME AND INRon 03-22-2025 INR 1.1 Normal 0.9-1.2 [facility] Comment on above: Performed By: #### P INR #### [facility] ([facility]) [address] [place] [address] VIR PT Coag (PPP) [Time] 12.5 s Normal 9.8-13.2 [facility] Comment on above: Performed By: #### P INR #### [facility] (TT) [address] [place] [address] CARDIAC MORPHOLOGYon 12-[address] CARDIAC MORPHOLOGY Clinical history:Severe tricuspid regurgitation Comparison: None. TECHNIQUE: Gated cardiac CT performed following intravenous menstruation of 100 mL Omnipaque 350 non-ionic intravenous contrast. 3-D volume rendered maximum intensity projection images were generated and reviewed under concurrent physician supervision. Findings: The patient weight was 137 pounds at the time of the examination. There is severe dilatation of the right atrium. There is dilatation of the right ventricle. Atherosclerotic thoracic aorta. Moderate to heavy coronary artery calcifications with multifocal luminal stenosis. Dependent changes and atelectasis in both lungs. No pneumothorax. Degenerative change of the thoracic spine. No vertebral body height loss. Impression: Normal opacification of the dilated right atrium and right ventricle. Moderate to heavy coronary artery calcifications. All CT scans at this facility use dose modulation, iterative reconstruction, and/or weight based dosing when appropriate to reduce radiation dose to as low as reasonably achievable. Finalized by Cristóbal Almonte MD on 12/30/2024 6:01 PM Normal [facility] CREATININEon 12-24-2024 Creatinine [Mass/Vol] 0.87 mg/dL Normal 0.60-1.30 [facility] Comment on above: Result Comment: METH OD TRACEABLE TO IDMS STANDARD Performed By: #### C RT #### [facility] ([id number]) [address] [place] [address] eGFR (CKD-EPI) NON-RACE DEPENDENT >90 Normal >59 [facility] Comment on above: Result Comment: Reported eGFR is based on the CKD-EPI 2020 equation that does not use a race coefficient. Performed By: #### C RT #### [facility] ([id number]) [address] [place] [address] POCT EKGon 12-18-2024 [facility] Misc. Lab Teston 11-22-2024 Miscellaneous [employer] Invalid Interpretation Code [facility] Comment on above: Order Comment: NEOGE NOMICS SEND OUT Performed By: #### 1 [id number] ####[facility] (DEFAULT)[address] [place] [address] Name of Test [facility] Invalid Interpretation Code [facility] Comment on above: Order Comment: NEOGE NOMICS SEND OUT Performed By: #### 1 [id number] ####[facility] (DEFAULT)[address] [place] [address] ACT Diatomaceous earth induc ed (Bld)on 11-16-2024 HMCHRN CLOT TIME LR 206 sec High 89-169 [facility] Comment on above: Performed By: #### 8 [id number] #### [facility] ([id number]) [address] [address] POC BUN CREATon 11-16-2024 Creatinine [Mass/Vol] 0.8 mg/dL Normal 0.7-1.2 [facility] Comment on above: Result Comment: METH OD TRACEABLE TO IDMS STANDARD Performed By: #### I BC #### [facility] ([id number]) [address] [place] [place] [address] eGFR (CKD-EPI) NON-RACE DEPENDENT >90 Normal >59 [facility] Comment on above: Result Comment: Reported eGFR is based on the CKD-EPI 2020 equation that does not use a race coefficient. Performed By: #### I BC #### [facility] ([id number]) [address] [place] [address] Urea nitrogen [Mass/Vol] 32 mg/dL High 6-27 [facility] Comment on above: Performed By: #### I BC #### [facility] ([id number]) [address] [place] [address] CT CTV ABD AND PELVISon 10-13 CT CTV ABD AND PELVIS CT CTV ABD AND PELVIS *ADDENDUM*Faint hypodensity is noted in the infrarenal IVC asymmetric to the right on the delayed images which may represent mixing artifact however a nonocclusive thrombus is difficult to exclude, consideration may be given to ultrasound of the IVC for more complete evaluation. Finalized by Ana Zhang MD on 10/27/2024 5:18 PM Normal [facility] CT CTA COR ARTERIES W OR WO SCORINGon 10-17-2024 CT CTA COR ARTERIES W OR WO SCORING CT CTA COR ARTERIES W OR WO SCORING CLINICAL INFORMATION: Congenital heart disease, heart failure, shortness of breath. TECHNIQUE: Computed tomography (CT) of the heart was obtained using electrocardiography (ECG) triggering. 75 mL of Omni 350 contrast was administered intravenously. There were no complications 3-D volume rendered maximum intensity projection images were generated and reviewed under concurrent physician supervision on an independent workstation.. No FFR performed. All CT scans at this facility use dose modulation, iterative reconstruction, and/or weight based dosing when appropriate to reduce radiation dose to as low as reasonably achievable. COMPARISON: No relevant prior studies available. EXTRACARDIAC FINDINGS: Visualized lungs and mediastinum appear unremarkable. Partially imaged intrahepatic IVC appears incompletely opacified by contrast, possibly secondary to contrast admixture. The pulmonary arteries are nonenlarged. Chronic bilateral segmental/subsegmental pulmonary embolism. The visualized thoracic aorta is normal. CARDIAC MORPHOLOGY: The right atrium is dilated. The right ventricle is dilated. The left atrium is normal. The left ventricle is normal. Valves are unremarkable. The pericardium is normal. Prior closure of patent foramen ovale. CALCIUM SCORE: Agatston Score: The total (aggregate) calcium score using the AJ-130 method is 457.0. Total volume score is 381.5. 81% of similar patients have less coronary artery calcium {this is reported using the interactive BAE form found at http://www.bae-nhlbi.org} Individual major vessel AJ-130 scores are: LM = 5.2 LAD = 151 LCX = 0 RCA/PDA = 300.8 Other = [address] Angiogram: The overall quality of the CT angiographic examination is good. Coronary Artery Angiogram Findings: Stenoses are reported as maximum percentage diameter stenosis. Stenosis grading is reported using the following scheme: Normal: no stenosis Mild: 1-49% stenosis Moderate: 50-70% stenosis Severe: >70% stenosis Occluded The coronary artery system is right dominant with normal origins. The LM has no stenosis with no plaque. Multifocal mild stenosis of the proximal/mid LAD secondary to calcified plaque. Moderate stenosis first diagonal branch secondary to calcific plaque. Diffusely hypoplastic irregular left circumflex artery, the appearance of which may be due to artifact versus diffuse soft plaque. LCx vascular territory predominantly supplied by diagonal vessels off the LAD. Series 1206 depicts prominent first diagonal branch. Multifocal mild stenosis of the mid/distal RCA secondary to calcified plaque. Acute marginal, posterior descending, and posterolateral branches appear patent without significant plaque. IMPRESSION: Mild stenosis proximal first diagonal and multifocal mild stenosis of the mid proximal/mid LAD secondary to calcified plaque. Multifocal mild stenosis mid/distal RCA secondary to calcified plaque. Mild shallow myocardial bridging of the mid LAD is noted. Diffusely hypoplastic and irregular LCx, appearance attributable to artifact versus diffuse soft plaque. No FFR performed. Total calcium score of 457.0; 81% of similar patients have less coronary artery calcium. Right atrial and ventricular dilatation. Chronic appearing bibasilar segmental/subsegmental pulmonary emboli. Large filling defect within the intrahepatic IVC, suspicious for thrombosis. There is dilatation of the right ventricle suggestive of pulmonary hypertension as well. Recommend CT venogram of the abdomen/pelvis. The coronary arteries and cardiac structures were co-interpreted by Dr. Almonte and Resident: Foster Mejía MD of the department of radiology and Dr. Roberto of department of cardiology. The extracardiac structures including the lungs were solely interpreted by Dr. Almonte and Resident: Foster Mejía MD of the department of radiology. Calcium Score interpretation and guidelines for asymptomatic individuals, 45 - 75 years of age are as follows: Estimated Risk of a Total Score Relative Risk Coronary Event Each Year 0 very low risk 2 per 1000 1-10 low risk 5 per 1000 11-100 intermediate risk 5 to 20 per 1000 101-400 moderately high risk more than 2 per 100 over 400 high risk between 2 and 5 per 100; approximately 15% chance of significant blockages; consideration should be given to obtaining stress echo or stress nuclear testing. THIS REPORT CONTAINS A SIGNIFICANT RESULT AND/OR RECOMMENDATION, WHICH REQUIRES THE ATTENTION OF THE LICENSED CAREGIVER RESPONSIBLE FOR THIS PATIENT. THEREFORE, I SPECIFICALLY DESIGNATED THIS REPORT TO BE TELEPHONED BY THE RADIOLOGY DEPARTMENT. FINDINGS WERE INSTRUCTED TO BE CALLED TO THE CLINICAL SERVICE ON 10/17/19 (more content not included)... Normal [facility] Coding Summaryon 10-17-2024 Coding Summary HTMLBase 64 EknjsdxbNNt1pEy+PGhlYWQ+PE 9BLHLuB83fuDIgoK0pE9NXRJfT ErbjEBCWZAbBIkJaicLoMA4atQ NjZXJu IC8+HC7eHCBoDjvokDJqt4L4pU Y3D31fev3tJYllvNG0OZBfCjPr ubuhp7ysqZh3XWtiWtljTbIo ZSBngZ31EKJ8lE12Cr62iZXjsR Hwt8butOw3XwXfMGLnDLY0bNyi HQbpz8IzUYObM67rvGVzt9C6 AMTpvFkdqBDpYdXcwBQ9sQ6rFF farxqbn4ubmjgsVop1pf34eONg k6Q7zTF3F8DdijE9PPIoxLZu EgxsmPBSgW5bulcso9evmamqHf AjWYPrRNf6CVu3UOWcmYgqKjHm GP21MPH7VDBykzQzX8VfLTTu iDcaHnQ1e9K9Qu4LU6QILzafM2 VNTUFSWTwvdGQ+GU52dy14Q5Nl VavsRgn7RMQzJHQ7fCC7eX5a ZHPiBJuga0Y8oYT5Z5LoyhXtpq 5ht7ycIWWtVMncX66sxTOhf0B6 ACCvoZT7BIKcpKisViFtpZ21 Oyc+DNAyhLhvc2PzAiurl0dmx2 syyPx4VpfmZVLiqqKkhVlpAWZ7 p4NbOr5oEXTftXZ0nWN1hT3b IeToIbH1AWldZ469OaCocVApFe hxN02aC2UttQH+FGIxVcr7EIQr eOssOT8gO6IpHWWzruounUKb xEskVZ4cHEMgodrwFPCbyX7qQO KnL1e4YxUoUxX2LEiyF1FpEABf xyltDx62lG7tEeJfPoA6XXpn R1WjonR1MRUlrEMjQArfJVT4H1 8es6G7MBWiUIRzYRV2lQC7lX3f bGlnbjogbGVmdDsgdmVydGlj PSbcAPuvW974BZSjfZkmReSnOU luZyBEYXRlOiAgMDIvMDUvMjAy NTwvdGQ+XXEkVOM7hSymBVNo tGLrPKgkCa9qgWamwOfgPN4iXR MgtfxpQAIhrD5mFBLwcHXzjUwi YV0zPZPgprfkl733WcYjFXS2 WDXupXJlU1MrbQ1sGxFbHYCgIF JhP1JooOMdACuiF161HJoxCiZ3 RXWhwaOeZ6MfPLGobXksYpE0 f3H5Py1Eb7IfiryxA0JxqLXvPn XeWeupKTa2K8EeJudrgQR+PC90 PGVpTG94IDc8RNR1wStoXRcq OCBcZ8IzmO0qXuKnCQVbUSXoCt c+PHRhYmxlIHdpZHRoPScxMDAl LdZncXiqAZ2vFg4hHOVhKNPp aLdvxEAzQzYig8xcZINsGKbhVX 8tjEjnG8QjuZL3YBHyz0d7Tb19 N80bH4DjaLH+UUJthHI1jDB2 gS9nDiCiXvA4LKplS375JiPfiQ TcLntbo4ijx6zncGl0CbM2GYSq ulWakHeiICQ5g4RpZd12A02d IHdpZHRoPSIxNSUiIHZhbGlnbj 7mcH5uIf1+GWRffTZ4yFH1oM3w VbJyClA8WDbbH887HfJxjGDs Phzpv9bcw2xgzJu0FmJmHPJpoh PztXhrTYM0p9ScKy66Z1QynDmq v3ZnLqm3cq57eYJvg8N5mRR7 W7ExCYLhqzanrYDohVewSZ7aPC IbzqdgMMGinP3zQAKuN0m2QtLm LqQ3MXwmM4CromJ3PFYywDQf GOVkvZZQwH6idwmfg7zwzhsoWj SbODIpFYm8PEd7XBEfcFfbMkGw GZG8GaO9GCR8kEAtnE1diHei nnbbwR6xNrt+JPT0dXPqxQWGCR 1lOjwvdGQ+FTFxCTC0cBefEMbf HSGraC8dHHKbR8d9AjMkMtO6 HYbpQ2JktnJ8HZDmrTOeCZTngU SWtS4fndcnb0fferstDgAwSPZp FVs3BPn5PYLjeMvePyGiNCD3 NdT2IMZ3tIWymW7lxMbeyzuxqT 9wOyc+VfibdGsjNPR2VSe5Q5Br Qzo1QOPawKlcXJ9ulZEnRRkv Ng8bcNlxjLvjDL9dVBBupgvtq5 69IdSjk4mjBPYllWQiBRdxLCR2 D63md6H7DGScOMMbEDK3yQV5 vN3bePtnrlmnzXNceYuqsrGahK qhDQlaPGsdP779HPAxeCueWkBk NVt5U4HiKms3TNIyyKmsOJ5m hSGwQAxoHk4teMjigOahJB8bXX Znazmzz371GzTll6miHHFjkQKt KOldAZA3V45cr4I6IYOrZYBu XCV5hTF9cB3ruChrxcesbMMkoP sjsgDfbYjwTSeuDRpxI164WENp kVksImFouKl1O6OjCpc6ADIy tBukDB5wkXWdYPrdJa9gpKxtbN elNE8oHRHwlajas288CqPjg3az BYXdpOJnBMktMOG3Y41sn8S6 MFLrXNHsMGE3cSW7aD5rzPtsxc ogbGVmdDsgdmVydGljYWwtYWxp N001LYZqzSqfRlKugJpxezVh KZwwFUg7V2YaTostdNU+PC90YW RoMZ31oIZrcIXii6htcOy8CrRq MGCtPSS5bFlkZNdez2LcLLTo G81deDObd6P8LBKypLlqpYYsJj UgtPF5cS2hESdscnkeh4qaqmgm Xodrd9ydup43oD17C66oOJec OWYpQEXtENMsRTMcsXlnnl0evP 9wIi8+YCFjhRH9zCU1xV3nPIUh DdQ9FCpcL218HrUklXAgUttx t0huz8kqeIn2WgC4PNHncvMieW fzSFC5p0LcQh18T74sXNarEITl ZMLiGFIzYHEamKtjyc7ouZ0e Ii8+SVZooOA9dGM4tM5nFkOsTh U8BAmfU152GjSjnROnKgazS77k W6MmtAC+DXRtIay1ZKKtpUje OU4xcYObYAhdLw5fWUQ8DpWpDw WvHWqzT7HlRVUwjydamhyotHC7 ZWQsVOAfvY20Dc1hpCwoQATp mAZBuF6lysffb2oucupkHsJkVY SnJNj0MIt3AZBzpNszUsNbXRO7 ViA1AQZ3dXVscV5llFuoidbz oS6bN1YtMKXilxnxEc08uB6sXp VlEpV2SBeaJzi+HB7HN6MECEQS UAXPGPYKLFU8B5IyEet8QGNl uDloGI2qcTEqMUecQv7riHjstP ptEZ8uJSWmvvaxYDRxtG0pQAEl xITauQenOS6dFDGroiqty830 MhJqYQU9REVgrZKmO7IkjR9aQc JoIKFlINDoD0AndPAyFJdpD756 XGxdVdU8GWZnivJzA9VyLNEj wCbfQkI7o8Q1Vp6lMA9bDX5vUC W5SY85FV05aHAbk1T0dHL8W1Kw IFYbyrakbkpktIY1OKEwUQAu hA45zMQyRWvoNw6ya6T1w201YX KyCBMdgU68Tv4rdVytKTYfzGLO fU5iicmxd6zezhheItRsAEOh AHv4ZWb5PQDswYqiXhJbPIZ4Cz V0EBQ0mKYkxM2ufUgikxgovF1a Oyc+PvMgMTSwqrW2E5DeVgu7 QOIjhVcyYT0ayCCcDWyoZm1tdZ piaHsgRQ1tDEKhicieTKIfaR5d NULuhMGpyFosNA8mYJCqdohg o251YmCmHRY6QPHafURcH5MtjA 8jDhObPCPnBWWmE0DkrHScNQml F635MTxxMeB9GZUnpoMcX2Cy XAHolIlxSsV4w1H4Su1DAUvQWR 88XT90zQVrj9T5gUD9D5YsROHk bfwwgptbdIZ3GSHrNWAzwG69 eMNeROcvSo9kt7K1g594VVQqRD MhvE13Ka8rxBjcGKMxeYLOwR5g hxraz6pebxmpOxWvCOVqEIq9 UYx5XUEibLrpUuEhDDA5XnI4QD F8yAGcmN0pxKtndbkqiQ8xWfq+ M9O8M9TfSppvpCR+JV84NPJl AQ05oNYmqZAdy0nknZy4ZpVlDB MlFLU3tGoqUCrth0JmCVOzK47g nBFzk6T0ZMFdcNwzhIUuUxFh rRZ7uV8lZLmkftwyp3qrxxbhDr bfh5nxjq46vP14X44qLDikZNLp WOLdHPDtEJYowEnmpd7fnA3v Ii8+INWtfFT6lLQ7hL6rEkXtTe Q3URzrR199VlBdnBTrGyund7tl z8rcvCh3WcRrCITwanTltQfb ERL1m9AkQw02S45aEQejSZAsUE SbCLNwXWEihLlubc5drG1uBm5+ NM8me6pbvn78rK53yPI+PHRk UUX7lFmkTWnwLMAtrN3jDEpkPe J3CDOkIfJpsD17pRPrBIbwXy4l cOrstTwgBY5oMITyfyems937 FaLeg8xeVBIbfCRlEMytTDC9S0 1xk8X6LYAdDYMkNRR6zVW4dQ7o bGlnbjogbGVmdDsgdmVydGlj ZCocLUxnA562LOWgsMguYhVfnM KhI7pjanRGJK4hVsczeMK+PHRk BLX5rBliILjeWAWjdW4oELYc P9z7DbSrKsH6NMckC3SjkvD2SL RlbABzEDXheKKIyS9hzoeyh5xx ooxeIrYkKWVoNFx9JBd2POAx vEomTsLiNCV3GbR5TDG7yLWczW 1rcRngzpotbT2iMju+RklOOjwv dGQ+PANvRCK1lZfgAJifDXUl fB6jHGQsK1k4JlGaAsK2FYmnW9 AuhfX2VEBcuWZzPLVswCCBgD6l uwskx6uuhoicFgPbEPKeFIu5 JYa3IMMrwCehUjWxEUG6RsE4MV W8tNMrgY4cjXtifsipbW1eRim+ TVJOOjwvdGQ+TLDbMPY1gOhx OQtpWBRcmR2vIPPlY9v0JnItVc S8ULdaK7YyxpN7OBDmmVLoZSLo wCWEpG2bfykgm3fozzknYiWa KYNaRJd8EMg3BHMzhTnxOjYgGJ R1FxH5OGX4tOGcjY2jxArioncw bU8aRdm+VPO4QYU5ML18CE08 U7TqJyckhDSeuOK+PHRhYmxlIH crJIIgYOkzXXKsLmJzgFopTQ9z Fs0sAGOlZQPxzVpsbRKtQrVj b2x (more content not included)... Normal [facility] .Auto Diff 10-15-[address] [place] % 9 % Normal 09-23 [facility] Comment on above: Performed By: #### 1 [id number], [id number], [id number] ####[facility] (DEFAULT)[address] [place] [address] 30244 Baso Abs# 0.1 x10 Normal 0.0-0.2 [facility] Comment on above: Performed By: #### 1 [id number], [id number], [id number] ####[facility] (DEFAULT)[address] [place] [address] 60285 Basophils/100 WBC (Bld) 0.8 % Normal 0.2-2.0 [facility] Comment on above: Performed By: #### 1 [id number], [id number], [id number] ####[facility] (DEFAULT)[address] [place] [address] 01624 Eos Abs# 0.2 x10 Normal 0.0-0.4 [facility] Comment on above: Performed By: #### 1 [id number], [id number], [id number] ####[facility] (DEFAULT)[address] [place] [address] Eosinophils/100 WBC (Bld) 3.2 % Normal 0.9-4.0 [facility] Comment on above: Performed By: #### 1 [id number], [id number], [id number] ####[facility] (DEFAULT)[address] [place] [address] 28558 Lymph Abs# 2.1 x10 Normal 1.3-2.9 [facility] Comment on above: Performed By: #### 1 [id number], [id number], [id number] ####[facility] (DEFAULT)[address] [place] [address] 12468 Lymphocytes/100 WBC (Bld) 33 % Normal 14-48 [facility] Comment on above: Performed By: #### 1 [id number], [id number], [id number] ####[facility] (DEFAULT)[address] [place] [address] [place] Abs# 0.6 x10 Normal 0.0-0.8 [facility] Comment on above: Performed By: #### 1 [id number], [id number], [id number] ####[facility] (DEFAULT)[address] [place] [address] 50996 Neut Abs# 3.6 x10 Normal 1.5-9.2 [facility] Comment on above: Performed By: #### 1 [id number], [id number], [id number] ####[facility] (DEFAULT)[address] [place] [address] 15740 Neutrophils/100 WBC (Bld) 54 % Normal 44-88 [facility] Comment on above: Performed By: #### 1 [id number], [id number], [id number] ####[facility] (DEFAULT)[address] [place] [address] 48445 BMP Standardon 10-15-2024 eGFR Non AA >60 Invalid Interpretation Code [facility] Comment on above: Performed By: #### 1 [id number], [id number], [id number] ####[facility] (DEFAULT)[address] [place] [address] 08892 eGFR AA >60 Invalid Interpretation Code [facility] Comment on above: Performed By: #### 1 [id number], [id number], [id number] ####[facility] (DEFAULT)[address] [place] [address] 36108 Anion gap [Moles/Vol] 10.5 mmol/L Normal 5.0-19.0 [facility] Comment on above: Performed By: #### 1 [id number], [id number], [id number] ####[facility] (DEFAULT)[address] [place] [address] 00804 Calcium [Mass/Vol] 9.4 mg/dL Normal 8.9-10.3 [facility] Comment on above: Performed By: #### 1 [id number], [id number], [id number] ####[facility] (DEFAULT)[address] [place] [address] 70548 Chloride [Moles/Vol] 100 mmol/L Low 101-111 [facility] Comment on above: Performed By: #### 1 [id number], [id number], [id number] ####[facility] (DEFAULT)[address] [place] [address] 78670 CO2 [Moles/Vol] 29 mmol/L Normal 21-32 [facility] Comment on above: Performed By: #### 1 [id number], [id number], [id number] ####[facility] (DEFAULT)[address] [place] [address] 16014 Creatinine [Mass/Vol] 0.78 mg/dL Low 0.90-1.30 [facility] Comment on above: Performed By: #### 1 [id number], [id number], [id number] ####[facility] (DEFAULT)[address] [place] [address] 48070 Glucose [Mass/Vol] 92.0 mg/dL Normal 74.0-118.0 [facility] Comment on above: Performed By: #### 1 [id number], [id number], [id number] ####[facility] (DEFAULT)[address] [place] [address] 37560 Osmolality 275 mOsm/L Invalid Interpretation Code [facility] Comment on above: Performed By: #### 1 [id number], [id number], [id number] ####[facility] (DEFAULT)[address] [place] [address] 84789 Potassium [Moles/Vol] 4.5 mmol/L Normal 3.6-5.1 [facility] Comment on above: Performed By: #### 1 [id number], [id number], [id number] ####[facility] (DEFAULT)[address] [place] [address] 99517 Sodium [Moles/Vol] 135.0 mmol/L Low 136.0-144.0 [facility] Comment on above: Performed By: #### 1 [id number], [id number], [id number] ####[facility] (DEFAULT)[address] [place] [address] 52701 Urea nitrogen [Mass/Vol] 27 mg/dL High 8-26 [facility] Comment on above: Performed By: #### 1 [id number], [id number], [id number] ####[facility] (DEFAULT)[address] [place] [address] 01178 Urea nitrogen/Creatinine [Mass ratio] 34.6 mg/mg High 4.6-16.2 [facility] Comment on above: Performed By: #### 1 [id number], [id number], 0720249 ####[facility] (DEFAULT)[address] [place] [address] CBC w/ Auto Diffon Erythrocyte distribution width (RBC) [Ratio] 13.5 % Normal 11.5-15.0 [facility] Comment on above: Performed By: #### 1 [id number], [id number], [id number] ####[facility] (DEFAULT)[address] [place] [address] Hematocrit (Bld) [Volume fraction] 58.5 % High 34.8-51.9 [facility] Comment on above: Performed By: #### 1 [id number], [id number], [id number] ####[facility] (DEFAULT)[address] [place] [address] Hemoglobin (Bld) [Mass/Vol] 19.4 g/dL High 11.8-17.7 [facility] Comment on above: Performed By: #### 1 [id number], [id number], 2978935 ####[facility] (DEFAULT)[address] [place] [address] Man Diff? Auto Invalid Interpretation Code [facility] Comment on above: Performed By: #### 1 [id number], [id number], 5273985 ####[facility] (DEFAULT)[address] [place] [address] 55060 MCH (RBC) [Entitic mass] 34 pg Normal 24-34 [facility] Comment on above: Performed By: #### 1 [id number], [id number], 4385445 ####[facility] (DEFAULT)[address] [place] [address] 63753 MCHC (RBC) [Mass/Vol] 33 g/dL Normal 26-37 [facility] Comment on above: Performed By: #### 1 [id number], [id number], 0740655 ####[facility] (DEFAULT)[address] [place] [address] 20786 MCV (RBC) [Entitic vol] 102 fL High 81-100 [facility] Comment on above: Performed By: #### 1 [id number], [id number], 7597344 ####[facility] (DEFAULT)[address] [place] [address] 14127 Platelet 216 x10 Normal 138-427 [facility] Comment on above: Performed By: #### 1 [id number], [id number], 9200939 ####[facility] (DEFAULT)[address] [place] [address] 40578 Platelet mean volume (Bld) [Entitic vol] 8.1 fL Normal 6.3-10.2 [facility] Comment on above: Performed By: #### 1 [id number], [id number], 9403820 ####[facility] (DEFAULT)[address] [place] [address] 20547 RBC 5.75 x10 High 3.70-5.30 [facility] Comment on above: Performed By: #### 1 [id number], [id number], 5708266 ####[facility] (DEFAULT)[address] [place] [address] 20373 WBC 6.6 x10 Normal 3.5-10.5 [facility] Comment on above: Performed By: #### 1 [id number], [id number], 4152966 ####[facility] (DEFAULT)[address] [place] [address] 71675 Provider Orderson 10-15-2024 Provider Orders [id number]#1.00[facility] Provider Orders [id number]#1.00[facility] Outside Recordson 10-12-2024 Outside Records [id number]#1.00[facility] Coding Summaryon 09-17-2024 Coding Summary HTMLBase 64 NzlvivvlWQk6eQb+PGhlYWQ+PE 7EISQfG85uwVSqtI3sH8BWEPtG QsstJIIMVRmPFzDlefSzCR6ctH NjZXJu IC8+SG5fSHOpHmoplPJui0X3qI K8T44ztz2wIJrmwTR2NYStHwDf amyox7injAh8GJcvGbydMuSr MBXruD66EHS1uH54Fm79gMKesD Dam8zkmSy4ZzFqTKCnKUG9qJus CHjjo9AtCZChT76fdBIov2J0 NDFsnVuxqDYbJjZefZB5jS4mOC maoojaw5lxeowxHxg9pp47rPBh d0S3oUA3N5MndiG8DXMxpUKc DselrAACdF8vnjenv4zarkyzDa VlWLGdFWj5GJj4UKWnbWyhOcBv CQ64PVW5WFFexjLbD3GjVTMs gLcqVqV5o4A6Bz3PQ1XKCyiwC6 VNTUFSWTwvdGQ+BQ41od23D4Bk OxscGlz3KPTnDUB8dSL4lH5e GVMhRExmj9P5gHJ7U6FgfmHuir 8ii2fkWYUuEAbyX64shCUpt3J4 FTWhjXW3GSOjgGviOfSeaY88 Oyc+BRRktKnba2VgWlwds9bzc2 ylvOh0EfifYMHsvoQboOluODA4 g4EbBy5hYARuiRU7iIS2qG1i GuVeRvI5KAnvV064YlTglQHxDl uoJ41rA9ScvBP+DCWfCzc1EPTj xElbAF3gB2NsWBFdwgmrdMDg uUtgZV3oEELizxltSBPxqT1bEW HgG7z2YoAwPcW8WLzfZ1RyPBDt mhufSx07wD4mEsVjVbK6UMsz G4TvttG7MMXrjZPxIYunUHV1Q8 9ms6D2YLFjCGEcZFX3qXQ6jB2l bGlnbjogbGVmdDsgdmVydGlj BUfdPQhwS372DROvtBxeTvErVM luZyBEYXRlOiAgMDEvMDYvMjAy NTwvdGQ+CEXtPGL6iLyjGDVu iUXdEMnjTn9wfQvjsFcgBM6oHT VclxqqJIPvkG3wUPLnfAXrtJfq FO5zYKVkmdvmz577SfTeMVP7 MHJzxENcE4GqvH9xAxGgHWUsZK JwM9RgrMYnDUccA012DQryIqN5 NRHtouKmR5YcAOGorSnjOvH8 o4H7Bk0Ez0XiwglwQ5XheUOoVm ZrXfvuYNl2U7VzXcbbjDJ+PC90 THYqHW44FTy8YVQ7cSbqAEsd GAZgL1EktI5pDiFaINYbBYUnRs c+PHRhYmxlIHdpZHRoPScxMDAl AbJwwTbmWV0uXp5uURSzVBFi nTnwnFFqIxKyj9miEZXtYQrmQZ 1qbRuoA4BhxJV6RTJda7s5Ir67 O57lN2PdoYL+JSBzpUC8sZX8 qK9rZxXcHfP2QWdmT479PzAqvG HkParmc6muk0mcdWo7VzE3SRMx htNgxQtvCZH0s4DyGe70U23h IHdpZHRoPSIxNSUiIHZhbGlnbj 9ceC1nKu3+TCCzdYF1aXR5bC5f YlNsBcB7MRchD343SbYnlTDm Ucujj9qwj2bdlHh6JcGpHJWgfn EuuNjnYCB6c3KlNy28L3SxyKcz s6RtGqg8co11dROou1X5yBC3 Y5QdYKVhwazdlDHreEnjDU6pVF YcjdjzFDCuzY0wBUBkE7r4QgMe DuP7MSoqI7HaxrI5LHCuiYFi DSOcyWCOfB9rysssv6yxtpjjZm LwAJDnUPl0LTw0PUOutGgmRoWg HRD3VqI6KYE9qYPzhE2spMea vecjwF9dMgy+ZJZ0xNWsjKDMDL 1lOjwvdGQ+NMMeGYM8sOnvPVup JFNfnQ6qNZNgW6y5KsHuBzH8 RZzjE8SopzK5XLOmyLOkOOMknD JDoV5utrxtu1vyefmvFrKmBZQb UNz0RVa8HNUevMvpOtQhVBJ9 SxE2WLX7xJSbeH5xhSonxznwyD 9wOyc+RewwvNkxCOA9DTr7I5Ue Tfi8QNMlqPovBQ4elWUjSUlq Tx4aeSkqlPjjYK6jNRMjvdlbx6 61VkEip2voIZQkgARdPTvbZTE1 F95yx7L5SAUaHAXvUBD4nBW3 jH3wwUbkvrrfzQJhgBhmgnWvtI zxRDghHWyrS145BQKcnKupPjWm YSg9Z9XjVti5VDSyrKduPI4g tAYjIGgySs9xhDejfNleLH8bOT Ahapthw713QxFuz5xrACBuiDYw QTgaTVG9H56yp9Q1WLRwSLSn EWM5tWG1aW4zmXdpqbutpDErsW wfrmKprJgyCCzjLAeiX504IVIg xHkoMyClhYa0W3LpEwr5GNJo wZlwTY7khCYaUNlwXh4deDwhjK osRY2pKMYsghouv428ScKbz2jm XVMwmQCeEBtgSSE4X63gi8L7 WLNjWZKdRAL9lTL4pJ0odIwifh ogbGVmdDsgdmVydGljYWwtYWxp B832YHLnqFtpYlJloRwvpeFe ZYkkRFm2Y6ZoTohpiXG+PC90YW OvWP63sEEovQFqy9rucIi6GaMv ANIqOBM0bWplKMatj3DbPNUn V99mbBVls8G1QIUfrHvurRKaQr RrhQX7hH7yAKryhcqdx3ptmtbb Xsngk1ozjp44yJ51E54uKOmi YWGtVAHjFYHgHOGgqVhrtj9tnD 9wIi8+SLRgfOI2dET2nX6eQZKk JcA9OKzuZ614GoNacPDdTahy k9dqd2yvbJf2SrR6GOMxioKbuI vnNFA1y0XxEp71I19gKDtaFZWd TGVtWWDyFQAswShlvb6lmD8d Ii8+JCFkzEH8uGN8rV4hCtShZc U4UZwdV054FhGmgVQcVuanN75m V6UsfYK+WFTwUlh2IRJmuCkr DW8mdGUlVDucBn0rPPO1NzVmSs SzXLlrP5XmVDRggdcafeqsbKH2 NASdJFNuoR98Vk9lpYcdJUHq xMCZvH9yevxrc5yieekfBlSlKX VuRUn0RIy8FRHjgBnnNeFkCKS2 PhU9TKM2uMMtsV1jjGctnnbo mU8nB6OgHIDfbypuCb73lT9qHh GbZkL1CKcaBmb+PV9DG0VSTQLC QJBJNUFDEJH9X2WbIoj2WREp qTnlLO5qhEGvEZhaSs8eiBmedS njQC6oEMRulkwtUYAuwA9xHTQo nIZjcOydDX0tIVFcwjqgo316 NgNdBBA4GJXynIPvL9JqmJ9oMm AtPCVzHSSwE5SomUXdXTilV498 DJhoSmB3MGStviZqS7AbFDKv qYmkSjD3q7A4Ed7dDA3dTY1vIR B7BG47TR40wWXwd3B2yFE8L0Qa XSPojrpkhyftgZU3EXAnRKLl iA34tXKjEHpqIt9jn3M1o261JH IwZZMuyX21Tr0hmNzkQNGxjVRX aT0bjgugi7tchghgVmKtNTQl HQm9BBt6WUNhxWmqQhAgWAH4Od S5KBO7dCTrdB9naNjwzjbuhX7m Oyc+YxVmVVAipeY0O2SiFka0 SLBwsBzzAC4xbGXbDXyiNq8byR tyxRzkJH8iZAWtohpeXEXfzR3e GESydJLwwZwjLE8jDMMwgtcw s641BhDgZCS5OPRdwZNcK3JkaQ 8hCjHnEHSeIEAjH4PbpRYyPEix R208NFrfEfQ0OXIacwOpH9Af PLUucDynMnG7t0M7Pq3DHIzZJF 29LM19vDWpf3E9mNU7E4RhLUBt fevywgvqpXU0OBGfDVYtiT34 uKUmQVsqBe0yz9Z4h458TPTxGG LqoJ14Kh2mpHpgSJHblAIXlB3m kzffe9qkjddqXxCeVZWdHAj2 SKt3WLUamIzfLoZhBCW9QzQ8GA U9xPPdtP5oyHxrqwuabL6mKrw+ FwIlqESonH7sLB76sTGxuSzx iwB2G5MwPuuxdMX+EM25WSTmPQ 02bGMmtOPdy5dgtCt7HqZtQSYt YUX3kBdmCJoan8WxNXSbK30d dVObb8B1XWAtpHzfhLGmLcCfaD Q6lA5uKBfgfbeiw5zniallRvge j4kppk00aX61H93rAMqbIIJp WEFyDAVsTIAryUdeib2mfB1kBc 8+WMDoxBL0cQW5nG5wKtEoTaZ7 LRfxG927GhZdgQGsVbllr5vb q9cucOj8JlSsQQXqixLqaZncGK Y7c2UdOi91L34oJLeaJWGdKILg EGMhMMPlnJmiph4roY7dNt2+ EA9xk1zslp96kT38vPC+PHRkIH C6dHaaFVeoFOPesS6qFBlkPtF6 YKJgIxWacN89iPHhDPiuPx1g sSbtxQuwEG4xNWGitkndc726Qk Gyu0vgLUBisGSfAKxuNEP0B40i y7R6HCGpJHTdPZQ0gZF7bP0k bGlnbjogbGVmdDsgdmVydGljYW rwLXulQ989TGOwxPieVsOykDFj D7ndorUCTW5zGnrrvBK+PHRk ITJ9uVnuQMjzFRIodL5aHKImD7 n7BdXsFqW9PEplH6GnkgN5QLHk hUVhXLOrcZIKlZ0ffhehg6wo uijqQfTuSLKtNQq5VZo5DFGvoF aoDzKuUUN2EtE1OAV6sPMamG2d bKiqqyefbA0eAvx+RklOOjwv dGQ+FVMmRDH4gFjnFMltRPDqqN 1qRSOdX2p9FiDoXbH3DOcmS7Vb mtD0KTGifCTiQYPsrKWJqB5a tmzzj4wxsegoReRqXXAyZDg1DI u1TDWkkPxbEsSzEMB9McE4ZZE3 sXLcdV6rkGisnbrkbF0tVgx+ TVJOOjwvdGQ+ZFIfHAR3tLfjGJ toAEWpjH2fZRQlP9e8ZgDhCyZ7 DDpmD0ErtoI8HPCngDLcDSSo kUJVaE1diqojl5undijsZeDjVP IgRVi9YNc0NJTtwLpiTuUoEDE0 DoQ8VQE4sQRhjR8rqXhgheit hQ8jPhj+SIG3URC8CP41CS61G8 RyPjwvdGFibGU+PHRhYmxlIHdp VPSxXKqrOQGlGiGvbWviWT3y Ym9 (more content not included)... [facility] Coding Summaryon 09-04-2024 Coding Summary HTMLBase 64 LtehaezfZMt5iZz+PGhlYWQ+PE 8PMPPuE41goRMpoF2iG2QNZKuW TkhuYXQKYMbNQsNpskPvIE2npO NjZXJu IC8+IM1dPTJxMwbvmJMmy2V9uF G3A80fxx4vJXliwCF0EVQuWcVb gfcdj6rttUt8QMudHwoaIfIf JOVwzY91AKI1uE88Gj56eFPfsP Nfn5ftqMk8HuCmNYSoKVE7qTjl YAjop9DuUVFqU41bkFKla9I0 DNPvkKfokKTkGhZpuEK0xD3jRV ajgymbs6iwyosbMqr2ci18cGMa j4T0mMM7R8IzhzV8FLKseEPi RjcbfTOKxL6rmgkki8rgtalpDd EoVMEgXNn0QYv5NKDmgKktNfFi VP13EEX6YBWkahYvF9KeDDCa tQghSuF5q5A9Wv9DO0QEEqpvN3 VNTUFSWTwvdGQ+IT01pm40C5Jd AwolPyg8DSGzPBI8nQX9fT1k QHPnYAzyf1G1kOJ6M5DlcwIxso 0jc4odXKRkLXhkZ19tuJGns6Y6 WYHlfKN2DSSawYwfYyLrmN90 Oyc+JBRhmZwcn4BkUyogu7rao0 ehbPc5SggtAGPnfhBsvQzxRRE4 t2LcEh2pTHXziBJ4vUY2wX2r OqBbJnN7LXfbL263IpVqyMVmEi weU46lU5KhdMS+TLEmUhn4OJHf hWgrVY9cG0AnRHVgzfgcvCKl tIvfJH0dOFNkvwqdQJUcnZ6vUR UmI1b5GxBjMxI1VLlcO6MpINRw kvjxHm36yV3bDtDkHhB6WPoo L2WfcxK3UIWmoTCaBGeuKKG8V7 0er5W5OAFuTZAxTTY5pYT5oB2s bGlnbjogbGVmdDsgdmVydGlj ATlhTQogD591EPCdgUcvUkWnFJ luZyBEYXRlOiAgMTIvMjQvMjAy NDwvdGQ+LZCeGDQ6xSeoIVBl bGDyHSedEl8lmBapnFquLW5lNE KxuiavBLNwxO6gSCKeaVJsuLyr NE7yWNSibchsd489JgKxCAK4 ZORxuBDjI0QppZ4pHfCnOYEfLD KkS6PfhYMdTGjrJ499UGnxEoS5 LQMtfdEqP8ThLKAcsDslNuS5 e1V9Bj9Lv5SvxfmjG6JyhOIlWy PxLwleEEy2A3XdGcymqEH+PC90 MFFiKH20GNt5XJP1fMnbRLez MXCdT8DruZ2jEeZdAYZyPWThMd c+PHRhYmxlIHdpZHRoPScxMDAl FjOuaMonBA3yIp8cQZWrULNx yZkvyKUiUaEwh8aqEMKmCSohQB 3jdZzeO0UcnOA6IUYpn7i4Ay70 Y27jN6SsnVQ+UQRmlLZ7zEB6 zS7eXsKiAcZ2NZmiH050PaFmfO CiGwpiq9iyx5jjeDt4KqL5ATGk vtEniXicOTN2b8HqUb73E82i IHdpZHRoPSIxNSUiIHZhbGlnbj 7kcF1dEh3+OCPyjBG3aNI2pZ7k MsIjCcA3RVatK878TaLgdRAs Abppg9mtk7bzzEp7OlZbJEFbtv SgkHmxVJG5v7SqOp21P8NxoEnb k0LyQgd6yr47uFSms1W5cFG4 Y0SnAMGozuisqSHnmLkjXR0cKG HmixgxSQOnwY3sHNGdW5s0KqPn LbC4JKjsN0UfckM8WJVgfAOi YNDbzOWYkZ4stotfv2ofnogzBl IsOUQaDNk3ITy0SZYujIrcEkEq PHB9VoF3CKC1bARbkI3pnMkv xnqxyQ0gPhw+SKN0jLWybDVKWZ 1lOjwvdGQ+OWYrOGK1bTmrQKxc DOJwnN9ePESqM2q7GgUdTkS0 OSrmZ3KjecJ5PLWklCRcDTCkdL NVwK7kconeu0yjjzydKmBhZDVf YNx5WHh7PCIurKjqAxWkVAZ7 KuN3LFC1uQRhqF1otRvlhtlrsT 9wOyc+YyghxMvnJHT6OQs8S9Ez Noi9SEUokFdkGD9ftEGkXWyi Vl5wtTqeuNeeVB5mSXEigzlcp7 82KxGmt5heRTEasRQaWPpfLZL2 F81is9P1SXRuSSAgXNP2dAE9 mF5dnQrjxbtmuXBcnKnrfjIbrR zhHOwtTWqpI443NCQeaKzxOeGo CRm0J1GhJnw6HUNxwKniMY5b iLTrKNzaEn6nnUvtqTwaYD2gYD Wvobmuq098ScZic0eyQUQjlXZb LYdpKQK1W72ge6S6ZTFgOCZk MMD7cMD4lC9ndJswzxrbmMGrhP abcwNqwFacMYbeGLhwC886OIRx iLqwBjZueYt2G3IaVud4LZPs aIraYI9fvNEtEQnsIt0flIqcvL pnUI0vSXDpvucds308AnTdm3km CWSdpENpHCcsJOG4G46pw5M3 SFJgTUVoVGU6pKD6uS0ndEuwbl ogbGVmdDsgdmVydGljYWwtYWxp K153RCMbzQrqIjBtoYqkpaEe IMkeOYi7M1KgUntzrWM+PC90YW DpRO18tOXcySQpk6kheBx5IcZr QDLsPON7kPmfMPcwy1PyBPSi L87ngSVbt8U4PHPbcNtejYQwLz VhuFF0dS4rYJcxjdqtd6thivbm Dfjrb4giha56rG77Q75cPOdw PNJeAEEkUGTjGNTrhDvnrc0iqS 9wIi8+ARCowIQ1qUS7gK3qVBRh DvM0FFzcN079XzOqpAUlZfll e7ucf6tjyCl9IqW3BXQlbsSwkY xxGCH5l2TzBg07V77cOAhhKSAt WMZkWZNbBIDfeYqzus8jhX7e Ii8+PIItqFA8vNO9fP5jVjVtBq O9BPweN034QvNttEWiFcllY43k J3NpmZI+NHEcPoc2ITVyrEyd OV3sxWFrXHvuXg6mVYG2XnGfMy CwPIqnL3OuTEZhgezcqsljxYF8 OBWsJXKeuF28Ej2jqCzcZWTs rKYVuV8qcljdr4gzcyzkWrBzFB AjRVp4UZu8RYYtvDdvVdDfMQE1 ZsZ8MUG7nOQdqC6dyUgtaeax cN6uE5PnLVCiewheYh93rE8aOv VmWyF1KYtoUyr+AS2RO5CGBNCW EVRULYRWDTY1N1TkFcm2CRHf yVcuJY7odCGmYTmkGo2sdMkxvL fuLJ3jQECkepypNVCxzF6qSBOv pSPflIxcWE6pOFBzzxvvz045 VeRaCDD9PWDccEJbC0WjxE4bRj TxQGPsIOCcJ3KrqNEtPDswT214 JKfmDxB2KPObabCwW2UvUCGx wSumBjM1a4N7Cj6kNB8rGR5qLT G1ZP87UW18zWPyl9K2mJD9Z2Uu LSOnbogeiktujAL3WXUaPAFf qE87dOSpWXycSz5fh5N1a300FL PyXJKyjS76Me5koZcoRTGbgZMT nK6ambxzf0zservwBzXtRTEg RRf9IDa1NTRwdDxxKrWlCGU4In H3ZYS3wGRjjH4wiYohqhybyB5i Oyc+CqKhYFAykaU4F5JmPjf5 NNWqsNlxRU1nxRDgCYjaRb9diK cfoCccVW9uKYJrwvsnACIodA8k VWVedFOhuMegIN3sSYNckink o600TfDvFHH9GJVwcBPnK9LxlX 1zOeEnJZIdLVSwO3MjgDNeIQjy A245XPadQcH1IYWokiSrM7Fk XFGikXkqSbA6f7I6Ce9MYGyUEX 40MI40mAHdp4V7nYX6T6TiBEJj otgqexqacCF6PNCxYUZngX53 yBFaOUfsUr8tv5L6a187TEFzWA PrzH01Fa7yfKfiZVMhuTIWvF8r fzeol3ewtykaYrCmMCCiIYx6 HTw5VXWbcDpzKhZdUHP1VyI5OB X3jEEfqS9erRrpvfaytR1aZjo+ G6X1K1XeQfwhtZP+TY19LDMo HR71aMYbnTBsj4wgbWy3NyVyJH FyOZN7mYarWKqpt4MmFCEwX24p zIYon6C5PTGlsCmsyYCtVoZp dKD9dA3eZTpbcxfmf4eiadqlYc gvm9vmkh04gB72E08hIVszALOa OJWaYITfSWJprPdmgw7uhC2h Ii8+CMWdqLP2rFF4gS7xUuPhOr F5OLqgN338JgZnwSHnDpkcq1ow u1lfkGv0CmBkXBWvzcVkqTea FBP5i2EnCe74L91oTXfjHGJjSD SaTGDlIYQguBsoft6qdL4kMm6+ ET6pe9jijs51oK12bAN+PHRk MHC2zNjqMJorIYYlqK2gAWfgMu R4AKXnXaLojD42tPAiINfhVq1h yYcstCcaKV6rFFBzsrabz275 UeRpv3feSNWgxOIyJOegAKA7T5 9oz0W6FCDhUUQtYRZ9eJT7vT9v bGlnbjogbGVmdDsgdmVydGlj PJtxFAnkJ215FEPsxNedVvJumY OtF6miggIQQB5cEemifYD+PHRk VCP3aGztWUdrLDGlzK4nZRVj L6r6DkPtOjE0JGfnE0WerfN9UN KzbCJrIXUojBELaT0ydznua3sl ywogClOvBYCtBBg7QYp6UTCo fKtkXlJiOBA6VpR9VTA9lHYilF 4yaGmplqiqkA0hHur+RklOOjwv dGQ+HOGpABZ0hEjbEDneBNTe zI7gIZUdX0b3GgAgRhP0AHkhM8 KsmoW3HSLtvOMzNVXnxSFHnT9l itsvb8tvpeycDnBdCUUsBHi8 LPv1BBRkiTrmSeMoDUJ1YhF5NH B9cUZjhY7edRcvjuglcO7dMfi+ TVJOOjwvdGQ+YKBhTLU9mOfj IBpuBPNwbM4uUMXuE2t0FiToQi K1ELguG3CvznT2ZOPkyDLjRRUm oKEBqT3jhjoig4lkypalTgRv BRZcAJi0ASw1FZFkhWpcOiFqHR X6CxT0TCM2wGOchU4nrIajvuwy rZ0bAgl+QYQ5FQD0HB17NE12 T0XnIbyekZXdnQG+PHRhYmxlIH qdLLAaKAxsZJOiWyDcwPjzMI8s Ud0bOUAtJVTsgMhhfWVsFmKp b2x (more content not included)... [facility] Provider [place] 08-30-2024 Provider Orders [id number]#[email or web address] [facility] Provider [place] 08-20-2024 Provider Orders [id number]#[email or web address] F [facility] Coding Summaryon 08-13-2024 Coding Summary HTMLBase 64 KqhielveCCd9fEc+PGhlYWQ+PE 4ELSDaI51ccIFmoO0kH7MFIUsH SjgtCSLPYXuZWvAhcqYqVC3elD NjZXJu IC8+HQ9zWYFvFsqrpYEwg8S2lH J8O45zbw6wPYmqqCK2WCTiXkKh rwtts5jiyCa6ILinBeacKqZz SWAbeY26IFN9cL32Ol24zSLzgA Cgw2zlhXi5OaNtTESaEYT1tWpr BYmkb3ZdQAKxL32elXAic2F8 AHNrpVsxxWOdWjSqaWX3vG2rBB hgiudld4gznfeaKma1sj34oBCf r4W1xTJ5T1PuqeA2VHCtqFYg EgyciCDNlA3fxdqxa1xacgavNe YwTJEwKGo8HNv5DIOsxUjwHkLj NN04KBK7YOBcrwLpY2XeKLPd aUcpYxE9h6Q2Yx3CX3HURvrpU6 VNTUFSWTwvdGQ+MK66iq65N3Fv BplmLbr7EIYrKSU5tQG0sR7v WIFuYNnjc9D9kDV2A9YhzyUxoi 8ur3smEGRhJIbxG00jiZGqp6I0 LCGjtJC8PTHulXuoSbRdsH73 Oyc+NHHsiVfgh0GmDlgcf8bem8 lchZx6PavmHHUeqpBmoXsnOOO8 e9LtTy1bPIJbhAZ3zYU0lU5v IqSuNzC9EKprZ114UpOqcAVrGj blF81bV1FtpQI+MOCvCfj8UKVo cAnlVT6gD2BwNESqbzskiUEp cUfxBA1fMOMadudkJNTrlX5bZN JgS7x9GqDdZlH2QCtwV6QqCJRr fxncTn37bV6fWqCeKlP9XLsu N3FwrlJ7CSFyyTUbROcwEMM7I4 8rj8E1CEHkCBGeXKD1uET8fR2e bGlnbjogbGVmdDsgdmVydGlj DQzsRBtpT185TZIgkXwjHiNxAB luZyBEYXRlOiAgMTIvMDIvMjAy NDwvdGQ+GPGfULN8sPqmYDPz yWNpWEvaSd3iiSukxVlwVB9rNQ XzydusZMGzpE2kTNPgtFRojAfi KK7bXQIowqcgo077XbEbHHJ8 AURipXKfJ3TepZ6pUfKkQQSkHA QdW3PdrIPqFFujZ239GGkdYrG6 AICphzReN0MzMCHtaHntTmQ7 s5A4Bw1Sn4MqtcwhQ1WqrYEtRu ZuPllyUNh4H7FpQxasnWZ+PC90 ITSgYB03TQy3LEU0oBsdWTvh VBPgN3FsyQ4aDyTlPYPpQYNeTu c+PHRhYmxlIHdpZHRoPScxMDAl BfPsfSraVF1kRv0hLIRvHHZu dOslyBXaJtEpp5zpDOIeVTxlDS 6ffYavE9PagKG9OCJjz1f1Uk95 O64xX0DdoSB+KFHbbIH9qNO8 nW8tJyYmWiV7WHwdX104GmBwuA GyYgott3zph9zzpPs6TeF4SHNz iwWunQnyJWR1v4VfHm26Y92g IHdpZHRoPSIxNSUiIHZhbGlnbj 2yzJ9wVy2+GBQxvRI9dNT0nC2c TsJkBvO0LBwuE978UnQjfDHb Osvos1sye8rxfDu5GlExQSYmeo HtgSpvATW6e2YzYn67S6DvuXpw e9YnTli2gk59iUJyo9B1yXP0 T3UiQIJgfudixCElqVedXU7iCS ShkuugLCUraM4hUEWlI4z4VqIn EvP0OMgoE3VavzW2NVCpgWZh KVHpzUXHuY3txjfzg7jmkugoMo XqLZWbIRn6GAg8IGGlgVkuWgQa QEK9CkN7OOB7uDKphR8kvSco ptkeyW3vPwe+HRI4cRNwrEDOIO 1lOjwvdGQ+AXYgZMM7oBtpBPvs ANBaaH8fTBBsS0f2DdPhXmW8 JFgnY5RocmX5YRGzaUXzPCBktE JUqB9onsbev4vrxucqYmClLKWr OZq2CQs1HBIifUmwCaSwJDH3 SnG3QAK1aEQasF8anUirrtzllY 9wOyc+FljkpCiwWPQ2QPy7F9Ae Uer5CXWhvNsfCY1ipJIvXUda Lw3gbFbrtTwfMB0hAJQtpkkam2 04VbUtw8mrMHFxoMDwXUgpFZC9 R26zd1O8ANNbKEKfGLW4yVV8 aI1vdRrchzqrtZXntVbrlkLwqZ adODexEBcmE164KMTziSpxKdNz GMq1K3QdUhq2HBMupRwhIX3q bGEjTJueNc9voFxqnZjcON5gGP Twcczez057GnYyy7ynJNMhaQMy RMqlDQQ1V48px6V5HBWxUNQm KRC8vII1uR2caBhgemeeaTZrqN wmrqDpeIogGUmvPEawK201BRSz zJgeIhCvuCe9I5CtVzg0WHJg oGraEN2ciWPcMOlxRq8rzMgafD rbDU6fSEGtsbphf088ZtWbr6hh UFRjrMGeFNwbQYA9S61eh9R2 SHNqWAZkDLY1lIK2zV3ghTqrev ogbGVmdDsgdmVydGljYWwtYWxp D682XJMrlSxrNhHmzZakfhNr IShlJFf4M2CaIavnoLU+PC90YW KwWD65uGQriBYpk1ywxIn0OlOe CXOsXLI8oVawSUdut0KhAZSd V62tzUXrg6A9EECpeYbreVQkMa XjlKY7cK8kTFqdumsnt4aacqhj Mphjx3ttkq89kY73T62pYOfr QFMvQRHmGMThJNMulUxhvi8ncS 9wIi8+NGDxpVY9wDG2yI1vTSBc CqK0URqtJ147GlYloERgVpno s5dwc8wkaDf3EkC6TAFcpdVmwX heYWE3u5GuKd49N53oOJamJXKh HCUgZOXvQAMpoYcyea7zkO0a Ii8+LPJphDC3vEE1qQ1uAfNpQm N4HShjI782RaEjxJQkIobkE46o Y3PsrQX+RFCtWqk7RHZucHtt RC3izIMvLCflHd4xSGR9RjZaIe AtPPvyS1ZsAKDnglzptrpjhTH8 EBWuYZXrtK06Xo5uaDveURLh yFWUxY5btvnto1aeoaquYzFxLR PdHKw8ZFv5BDLrwTorAsSnPKM2 ItS7LZA8uKVmpP8shNmldcob vV1iY0DiHNDmmuhcQr77lL0gRt VjLhZ6EDdfAwh+RG9GW8VRHHIT PUHUKQLAVLI4L0OeGgk8WVYt qXugJF8bdHCzNOzaEy0yzYqqwW dlBY6vLDOifqjpLMHgpP5mKJEk oOJtqUmgLK9kPEXfctvao101 TzLrASK5YHGlaHJaG5YqhO4iMm BfSVJwHPSuF9PseZYkDCjeQ712 LXbkSfA4WHJuxnObC0FqHFUa aDaxXwV1g0H5Xt2bIL7kMX8kDE V0QM61RJ47yVUtz3E5oUS3W5Oz WODkqpfsveysxZV8QECfWHHm tC15wVZdENleTb1tk6V4x576QX OrVTAvpJ27Lz2scZzrOSRqgBTO wM4cqiatm5snxxqyFwHpWHCx CMt8RPa0HLSkiOmrTdYrAOL7Hu F7FKN3hSNzfL4fxRqmwacuoO1b Oyc+ToFgOQHnjmE6P4AeIww0 BULoeJwdJJ3emPObHBrzZl1clH betInqIW3pJSItgaurAKNlbI1e YMVjcATlbKuzKQ3qKRLgpaup d058ZqLnLAY4VSWkfQCgY0RjyV 2mAjHcWHBtQYBwT6YgbDXfQIgt K438XMrdQxV5MHQrrdXyP5Xl MKPlpSutDoT4r3A8Uv6WQGyXKM 58OC84hAShv5T6lKN4V1TvNLPs iqnjjxiipHS8LADoZLAwgL28 kFPuMLilLf1xx0F5g695PYKbIO UpxP07Gd7fmFxlVUDxlVMAzJ4l sqqmz0zjtyjlLqKvMMOlKRt5 ARh4HEGfzPujTeLtIBP6SwC8GN Q1hQPbrJ9mzDwkdjhaxG5yQht+ M7G9O2UmZyhmyOM+DM87AGAv DM66gLZtzUWix6zcsKu7PcPyLW VsFEG7yLkhDQckx0ZqHSRkM56e oETot0K9GJKoaCvrnABwQbRh zLQ2dF7kDDetptufi5sngjeuPp tfl1slbg94xL22J15vNSkaPOXk XQDlRSXhHPNdeSubjq9mwS1a Ii8+KYGpvOK3xIL3qG1bBhKdJj P4XLjuD942UrOtjSUaWvqhc4cc w1kdcTi0NaRyXKFodsLhmDoy TVD0d0KwWl02Z79zLUwqVBUeYA UjNBJnABWbmFyggk0seI1rWs1+ KN2qb8ckoo95xI67bTF+PHRk MUL8dWszSGdiJXTqbB3dGOnxCs I8WGSqUmDuvE91cWFvZKldUs9f zQnxfDnlJZ1zXQZqkovcz116 LoNrn5lrYBOtpQTvPBhzLMC1Q2 5qz0W2NMYxZDUySXU0lZU9vQ2w bGlnbjogbGVmdDsgdmVydGlj VVioTIkyV647XCAbyAkcYhFyaL OiV1sdksAUNG0lAqfneNC+PHRk EJU9vDujWNiuDYHdzH7qDHWs V5h9HyIxRpP2XAqnT4JbvsA6AL ZfrRZbYDYlqZVFgR8khpyoa1bw rogiOaMhWRWvXAj9GFl8YXLy sDdxTbWeMKG6OcR6QCU4gKKnkQ 7tbEshllpzjD6qXss+RklOOjwv dGQ+NXVoADA8lCxsUIbrTWRj fN5gZHQhT1t6JmNwGuQ1HOwaX9 LprkA0XHKwoFKvPSManYIOtX6s neoah3ikeilzTdWjPNVlRRj9 HRa3FPRpkZjbRiOeIKA7HoO6ZH O0fTAlrY0lqTsoiflyvS3mGvp+ TVJOOjwvdGQ+NEYtCQW0sHdx DHewFEJsxV2oQJMqJ3v9DgDjYo G7CYvaI1NqneZ8DBVriDJlYQLz nKLFpE4rosjcz1sgdiwnApCn GUDkLYq1CCm6DDQtiQrnNoDyBO W1KuW4YAC2aUBzyF7mwIcospnc vA8jYtm+FZQ0CXX9CC68LI13 R9HjTqwndRDjfVW+PHRhYmxlIH qnCWGlTWueCPZlZeQycGipFQ0t Qq2sQIBfROWanQovrFAvKfTx b2x (more content not included)... [facility] Coding Summary HTMLBase 64 WbgdmkvnSPt9wNj+PGhlYWQ+PE 7DRICeM69udKUriY9aB9AMJVmG ByedQVIFWRwEDkWwkkSzSO7rvD NjZXJu IC8+MJ5mERCbDayppNTkx7D1kF B2Y58zgx9gUGvoqVE4JGLbSoIr lzadr0atkKt6PDwyCdaeHrBc YHZkiR47ITQ2hX98Yq11zXYqoG Ofw6dqsQk2BdIkXHXcBFE1uLhf BXzxq5UrFGRkN81ahIWfe7N7 TOSncMgelCCzHaGytLN8qN4cCN eusbdqu7huvqnjPth2ns57tBMz l0A0nRG5X0PrebY2FWPtyVTr YnebkOMJrY1drcsqy0clufinIk CmZLEbCPy0FPj0MBGukZguPvHe WI01LJT3MPZeulUlT8OtKCWd qIhvQnN2s2O5Fn0VY6EBToakQ9 VNTUFSWTwvdGQ+JO74gl87A3Ni JyknIxa9GEQqWHI6pVQ6uJ1a SEIaGIwhu7D0wDS0X3DdobYpyd 6se3chUBGsQEtuN59uqNGor9F2 QTXgpBN8RVNdjVpzMrPmbL66 Oyc+KXZblKrnq9YhRoekt1fvr2 usxIi9RpisHTTfzpIwcTqoXEY5 z8OpHq2rQDObfKS6zMH8hZ2o QeIqKjV1XPncC841RsHfzJKiFw jvG36xC3EjlKW+YWErTco8JMGy nSdxSF9wG2BrFPQqesayuJJm mEdfDG7oCMSostjuXIGfoN4bXS RkL3r9JgQeNvQ5ZSbpT5HnHXJs stybCf62xW4wGkEjRoF4NBay M6JhicI5JOBmzKSjRBybAGF0L8 0gd7O9UQKdOWTcEBQ1oHN0wB7v bGlnbjogbGVmdDsgdmVydGlj KDlrULvxI621WVItxLfmFbItSS luZyBEYXRlOiAgMTIvMDIvMjAy NDwvdGQ+LUCpZFP8fOjcTZJf eVCqVCxaDq3lfYpywPetGU9jIC RppssxOKWwlM9tMBMmbHLvoFyr VI2pLJImarlur756MdIrSGJ0 RMCqsBGfW0FneA4eGwZgZVIwMY OfV2TmjCMwDKbaD129STubKoT4 OOIdyyWoM6PhDFMecBcmRnF2 u1K2Pb9Fc5KfaicaO8PkqJHmGu EoChjqFRr0P8QwWokvyVL+PC90 QSIfEN53AOr7FHJ7fQsgHTej JFJcW0JdlG5nUbEbGTFxQNWqYa c+PHRhYmxlIHdpZHRoPScxMDAl ZiCveJuzOI5rVv8nROEkEVHm bApnlNFuUzLhg2wtFEKlQVmfCV 8huQupF7NqaOX9KTYaj7p2To05 Q61fU9EmyOI+IAPvbSN3aOC2 rW4zHtMzAgY5UEswL529MsAgpQ ZiHiued0sby4ybtLk3JnP7YRRv brVkwPdjXBT6d6QcHt37R94r IHdpZHRoPSIxNSUiIHZhbGlnbj 6knO0zBs0+EWKenLU5bKK6aQ0t VlJtXzR1VIxtZ841FyMlxTKl Iiypq1qns7wrgDj7QwZvREHnlv HylNlcUZE3k7BtEk92R2FtxRgp u6NnGfl6pc18eRGlk7W4aZE8 S1NrRFWghoglhZSnxEixGA2nKV ZeoeriUYXumY6wXXClA2p0CrUz HpF7RYrnF0FqtbH7WUGtzROk EYMsuZIKxS7elkfay9vygmyuXo MvJJZrBMi7KAj1LHYkzMvrOmKa QYH2LgZ9KIZ3wAKafN2scCzh nifznI8eCpc+PKA8vXNclOGRWJ 1lOjwvdGQ+ENAdKWN1bEpeTTfu VHZpqI2uEVMrB1r0KuWvLzF7 ZImiT2WsazC3ELXaeTBiPAWfiV MDzY6kosmxr5jlkopiOzWoOZGz HGq8FNc9LGItxPwuNgUnDRZ2 BgU6SDN5vXDjnX9uiMxgsgxpbV 9wOyc+YwkelYbvIFJ4EPi5H2Oj Qlr1CPDboKbcNG8pvCFgDFmk Ht1evTqamAwxVY3gOOExnpoaa3 76EpEnc1oyNUFfwXTcPEknGRX0 Q80rc8H9IEEkEWTqIFL4ePY3 aW0hjUmrpyouzEHqcYpyvwOliJ kgTEaoPXozQ464HBEmbGxfSiEd FLp8O9HmWsa4PFXbuJaoTL4m fDJnVGtgPr4awWogsYutNB7fPZ Rwcymbi969WhUxd1ckVZPylDOn ITruCIK0S61ll7L1POWaLAEy HRX1fRO2xI8gqMgzggwhvPAjoQ gpuzKphAxoHDlvIUlnL513SEAe tAqiWmGkgOj4P8SqGsi1IRQh bFgqRC2kiUQxDGqeXs5wkHsclS yoLR4jJRSadkaak367QeWfa4fj KFXeyNZdWScnHMT6K85yv4U6 DFQiVUTyIWD4oPC8kK4xrFjcdc ogbGVmdDsgdmVydGljYWwtYWxp S690EUKlrQooOmZyxOtwqxZz XUxaDQm3Z9WvQxehtNJ+PC90YW EcYA44rTRjeHNai6zulXc4ZmHx NSSvBOD0iKkgJPzua3EbKWMd B70jyEMrr4O8PKWcfEajgMIiEk BfhKX0rJ4jBFrrtzplg8mjvprx Vzulo0ekwp05qM63U98uDVme UHNcQDIaAQNaTZEufTirzm1zeC 9wIi8+GSIkjCK3eAO0yD8jASVz KtX1OUhzE408KfRgeFPtDres u0mnc2supNj4CyG0BZLgceFhtS tnGHY4o0BjFb91H59iSTxhMHVg GNRhJJPlRYBzvVksmd8ziQ2x Ii8+PPVbhFH4dHK3eR4pMbQcEh Z5CBmhN813FmRaaREaOjwaK39s H7QhqII+WRGfTrx9ERKoqNbb ZZ4pzAWaKCxzWn8vTKW5PaWkUs NcWDuyW8BvKQBndynfenoskFS2 LGYqXCGfdU92Xr4akEkeVBJs zNJQiP6ooabfy6ggfodfNgFlDF MuQJz6TNo7HFHxcAsrEzPqEWB8 DpK0MKX3jWHydM5wrUhiwmrd yJ9wW9YwRLZisxduZe04dP1xQu VtHzU8CBcmLxa+XA7KD5XCPYPZ ZJPVZBWUMWY9Z9HxXyf9RCYc qVrdRZ9neGMcFJhdCp9niYlrqL snCF0yFOVnxiwuIZQniJ2iSRTk wKNmaXfxJK1fZIUiwqbql028 EhSuBZM2FYTrtGTiT8VtnR6bJy MsSKMaMQSbO3IowTSzUHlrD496 LGnnTwY0ATXnasWoA5WmCUBx eBgzFwL2o5M7Fm7yGP2nTZ1hLA W1WR12EA00eLKcg6Y7mFQ4S1Pi TBMhghigsobgwKZ6DLTbEFUr dT06bLTuAKnsSr4gf3N8s364XP WmGLAaqS12Xx0ebXqnOUXoiVXD eH5dgxmbj6luilwtBjJaJDPu MWd0PBi6CCWddOxzQoXbFSS5Ls K4HNJ4cQSnaJ0vaCtgkquhdH4b Oyc+JzHhIWVwpqS6Q4TkUyh8 IZQuqHtmNB2wkFQpDVhuXj9mzU lteSmhKG4kBTLfbgchOJIfgM9z HBIkbXWqwWqqDJ8gIRGxqdxj p828EaWoCND5JVRbgWEnE9FohV 0yCvOvHUCiOZJnO2MbyDPrWBie A986ARdhSqO4ZQYzssClL9Fe NPYkvJxxTiI1u7H0Hy8FLQgJTG 30HQ45lXNbq7N3xRL2T4KkPTQs berfgsihiDK3ISPbWPSrjN21 mQBtWEjzHp2cd5V6v138BORaFZ DpcQ86Xh7qtKyqHDVrjNHTeM5n duqrt4gwdbfnLkWzMONrWEc1 RYp8IWThnHvmDeRjRMI5NmS1PQ C9xWKmyF4ezEccdcvkpW5qZnn+ Z3M2F3YySnojaFR+BH44DHUs YV36nHFqsFXqh4tbvGu9AmAjQQ LkEZS8uYytVCroa7PfMKMwP60y nNKie5Q7UDSdcBldaQBqGsXv zLY1cM9kOQogejjqf5itmcdoNk ljd9icvl62fD99Q75rCDycMJSe ROTgQBYmRBToxIhrfv9fnO7e Ii8+LMZovYA8vUI1wI4sNpReIf D9HVdsB367WjBjqSOpAqqbg7ya g9xcxOn4ZmMzELIutdJagHby GIV1l9WfCg69V36nSAgxTXVrSN XgRKWhIGFdpUrlms3gcY9qFq3+ CC8gd5qtyy24sN97wNO+PHRk DPB0zWtxKBijFBZxvO1hYWwjFq V5XARiUvEoqB21jNNoGDvmFu8c uQuptFbwMC3xOIHfhtgnq767 LdOba1ejGDXqbFKlOWhxYDJ6P6 6hg4K5HSQtILOfEFG3oLS4kJ2v bGlnbjogbGVmdDsgdmVydGlj SPdjJAxrQ459HSIruHevTdYekF YoC5xfseHHKH6kKibfySZ+PHRk JDV4oBfpZEukJOBvkU2sDYAp H1t1MaEaKgR6EQozX0AhdtC1JD OiwKSaRZCqtKBPwT4jrvxkx7so krmnOoLjFTElHIh7AEn2QNVb oQjjKnWvBUU5ZmF7SNU6nBQhkM 1qwZvxcurhkR6vUpd+RklOOjwv dGQ+UGRdABI5aGczVIjsHREw tN0pDMXtA7s9QkKjZyE6TMxdR9 KdsoN1YICkkZKoWJRjsKSHjO6l snxhj0edqhazEuPmBGOxEYz4 HLw5ZBXrsYyeHdZcBXP3IoQ6MA N4xXRxpW7fiPcwkvzguF7kTih+ TVJOOjwvdGQ+IEPwSIE9dSxv ZVnlQDFsqO6kZKWmW5r7CfVwLn Y6EQlkR0RrfbJ1GBGarDYoYCGx dIWRpW6vcguwz9fivlyvRiMr CRTeQLz1WHf0EGLtmGdkIoWyJX Q6QvC0LYP8pLQotG4geHovkurt hE8lJnq+PLQ6VOB1EL05QW63 Z1DrZwmudEZulRG+PHRhYmxlIH nwZSHaBSjcZOVxOdXssBohYY5k Cr9xIYGwIFNjlVvvfVVjNfSf b2x (more content not included)... [facility] Consent Formson 08-10-2024 Consent Forms [id number][facility]-08-2024 Consent Forms [id number]#[facility] - Other Pathology Report on 08-08-2024 Lab - Other Pathology Report [id number]#[facility]ch[facility] Completeon 08-08-2024 US Echocardiogram Complete APPROVED REPORT EXAM: Comprehensive 2D, Doppler, and color-flow Echocardiogram BSA: 1.83 m2BP: 110/77 mmHg Rhythm: NSR Indications: Dyspnea, unspecified, Shortness of breath,Abnormal weight loss, Other nonspecific abnormal finding of lung field, Hepatomegaly, not elsewhere classified, Other specified disorders of kidney and ureter, Secondary polycythemia Past Med. Hx: COPD, Vertigo, Former Smoker, Vape use Echo Enhancing Agent Indication: Rule Out Septal Defect Agent(s) / Amount(s) Used: Agitated Saline cc Comments: Ordered by Dr. Sigala Other Information Study Quality: Technically Difficult. Technically limited study due to lung disease,very poor acoustic windows. Conclusion Moderate to severe tricuspid regurgitation. The estimated RVSP is 63.2 mmHg consistent with moderate pulmonary hypertension. Right ventricle is moderate to severely dilated. The atrial septum is aneurysmal. Atrial septum is bowed toward the left, consistent with elevated right atrial pressures. A positive saline bubble contrast intravenous injection demonstrates PFO. Left Ventricle Left ventricular cavity is small. Mild concentric left ventricular hypertrophy. Left ventricular systolic function is lower limits of normal. LVEF is 50-55%. Flattened septum consistent with right ventricular volume and pressure overload. There is grade 1 LV diastolic dysfunction. Right Ventricle Right ventricle is moderate to severely dilated. Right ventricular systolic function is reduced. Atria The left atrium size is normal. Right atrium is moderate to severely dilated. The atrial septum is aneurysmal. Atrial septum is bowed toward the left, consistent with elevated right atrial pressures. A positive saline bubble contrast intravenous injection demonstrates PFO. Aortic Valve Aortic valve is trileaflet. Aortic valve leaflets are mildly thickened, but open well. There is no aortic valvular stenosis. No aortic regurgitation is present. Mitral Valve Mitral valve leaflets are mildly thickened. There is no mitral valve regurgitation noted. Tricuspid Valve Tricuspid valve leaflets are thickened but open well. Moderate to severe tricuspid regurgitation. The estimated RVSP is 63.2 mmHg consistent with moderate to severe pulmonary hypertension. Pulmonic Valve Pulmonic valve is not well visualized. Trace to mild pulmonic regurgitation. Great Vessels The aortic root is normal in size. The IVC is dilated and collapses <50% with inspiration. Dilated IVC with poor inspiration collapse is consistent with elevated right atrial pressure. RAP 15 mmHg. Pericardium There is no pericardial effusion. 2D Dimensions RV Minor (Base)5.80 cmLV EDV (Teich) 34.92 mL IVSd 0.70 cm LV ESV (Teich) 19.52 mL LVDd 3.00 cm Left Atrium 2.52 cm PWd 0.84 cm Aortic Root 3.57 cm LVDs 2.37 (2.1 - 4.0 cm) LV Mass55.56 g LVOT Diameter 1.89 cm IVC2.43 (<= 2.1cm) M-Mode Dimensions TAPSE 2.6 (>1.7) LV Volume - Method of Disks (Moreno's) Single Plane 2D LV VolumesBiplane 2D LV Volumes LV EDV A4C55.7 mLLV EDV BP53.45 mL LV ESV A4C29.8 mLLV ESV BP27.3 mL LVEF(%) A4C46.5 %LVEF(%) BP48.99 % LV EDV A2C49.3 mLLV EDV BP Index29.39 mL/m2 LV ESV A2C24.1 mLSV (BP)26.18 mL LVEF(%) A2C51.1 %SV (BP) Index14.40 mL/m2 CO BP1.9 L/min Left Atrium Volume Systole (Method of Disks) Single Plane 4 CH 23.55 mL Right Atrium Area Systole RA Systolic Area A4C31.78 cm2RA Systolic Vol B7C361.90 mL Aortic Valve AoV Peak Velocity0.66 m/sLVOT Peak Velocity0.59 m/s AO Mean Velocity0.46 m/sLVOT Mean Velocity0.37 m/s AO Peak PG1.72 mmHgLVOT Peak PG1.39 mmHg AO Mean PG0.97 mmHgLVOT Mean PG0.66 mmHg AO V2 VTI10.49 cmLVOT V1 VTI10.55 cm FLORA (Vmax)2.54 mm0FTHG Area 2.82 cm2 FLORA (VTI)2.84 cm2SV (LVOT) 29.75 mL Indexed FLORA (VTI)1.56 cm2/m2 Mitral Valve MV E Max Velocity0.34 m/sMV PHT52.84 ms MV A Max Velocity0.58 m/sMVA (PHT)4.16 cm2 E/A Ratio0.59 MV Decel. Msdh894.22 ms TDI Med e' Velocity9.94 cm/sMV E / Medial e' 3.44 Lat e' Xemexszo78.76 cm/sMV E / Lateral e' 3.18 TV S'13.36 cm/s Pulmonary Valve PV Peak Velocity0.68 m/sPV Peak PG1.87 mmHg [place] End Diastolic Shantelle.96.29 m/s PV Mean PG0.86 mmHg Tricuspid Valve TR Peak Velocity3.47 m/sRAP Pzhimnmj35.00 mmHg TR Peak PG48.19 lsJxGWRM45.19 mmHg Final Signed (Electronic Signature): Renae Weems MD 08/13/24 10:25 a Technologist: [facility] BUN/Creat Ratioon 08-07-2024 eGFR Non AA >60 Invalid Interpretation Code [facility] Comment on above: Performed By: #### 1 [id number] ####[facility] (DEFAULT)[address] [place] [address] 11235 eGFR AA >60 Invalid Interpretation Code [facility] Comment on above: Performed By: #### 1 [id number] ####[facility] (DEFAULT)[address] [place] [address] [id number] Creatinine [Mass/Vol] 0.87 mg/dL Low 0.90-1.30 [facility] Comment on above: Performed By: #### 1 [id number] ####[facility] (DEFAULT)[address] [place] [address] 25500 Urea nitrogen [Mass/Vol] 36 mg/dL High 05-07 [facility] Comment on above: Performed By: #### 1 [id number] ####[facility] (DEFAULT)[address] [place] [address] 95820 Urea nitrogen/Creatinine [Mass ratio] 41.3 mg/mg High 4.6-16.2 [facility] Comment on above: Performed By: #### 1 [id number] ####[facility] (DEFAULT)[address] [place] [address] CT Chest/Abdomen/Pelvis w/ C [facility] 08-07-2024 CT Chest/Abdomen/Pelvis w/ Contrast EXAMINATION: CT Chest/Abdomen/Pelvis w/ Contrast HISTORY: Abnormal weight loss, Other nonspecific abnormal finding of lung field, Hepatomegaly, not elsewhere classified, Other specified disorders of kidney and ureter, Secondary polycythemia COMPARISON: CT abdomen pelvis 10/11/2023, CT low-dose lung screening 02/22/2022 TECHNIQUE: Axial, Coronal, and Sagittal CT images were obtained without and/or with IV contrast as indicated by examination type. Dose reduction techniques were achieved by using automated exposure control and/or adjustment of mA and/or kV according to patient size and/or use of iterative reconstruction technique. FINDINGS: LUNGS: Mild emphysematous changes. No acute infiltrates or suspicious nodules. PLEURA: No mass or effusion. VASCULATURE: Chronic nonocclusive thrombus adherent to the arterial horton within right lower lobe pulmonary artery with minimal extension into the segmental arteries. Similar, but more mild, finding within left lower lobe. GARY: No mass or adenopathy. MEDIASTINUM: No mass or adenopathy. CARDIAC: No enlargement, pericardial thickening, or pericardial effusion. AORTA: No aneurysm or dissection.. CHEST WALL: No mass or axillary adenopathy. LIVER: No enlargement, atrophy, abnormal density, or significant focal lesion. BILIARY: No dilatation or calcification. PANCREAS: No lesion, fluid collection, ductal dilatation, or atrophy. SPLEEN: No enlargement or focal lesion. ADRENALS: No mass or enlargement. KIDNEYS: No mass, obstruction, or calcification. BOWEL/MESENTERY: No visible mass, obstruction, or bowel wall thickening. AORTA/VASCULAR: Marked atherosclerotic disease of distal abdominal aorta and right common iliac artery. No aneurysm. RETROPERITONEUM: No mass or adenopathy. LYMPH NODES: No adenopathy. URINARY BLADDER: No visible focal wall thickening, lesion, or calculus. PELVIC ORGANS: No visible mass. Pelvic organs appropriate for patient age. ABDOMINAL WALL: No mass or hernia. BONES: No bony lesion or fracture. Marked degenerative disc disease L5-S1. Moderate at L4-L5. OTHER: Negative. IMPRESSION: 1. No acute or suspicious findings to account for patient's symptoms. 2. Mild emphysematous changes. 3. Chronic nonocclusive thrombus within right and left lower lobe pulmonary arteries. 4. Marked atherosclerotic disease of distal abdominal aorta and right common iliac artery. No aneurysm or dissection. 5. Moderate to marked degenerative changes of lower lumbar spine. Final Dictated by: Samuel Peña MD Dictated DT/TM: 08/13/24 6:34 Signed (Electronic Signature): Samuel Peña MD 08/13/24 6:51 am Technologist: TROY FRAZIER [facility] Provider Orderson 08-07-2024 Provider Orders [id number]#1.00OTGTI FF [facility] Provider Orders [id number]#1.00OTGTIFF [facility] Pulmonary Procedureon 2023 Pulmonary Procedure [id number][facility] [place] [facility] Provider Orders [id number]#1.00OTGTIFF [facility] Provider Orders [id number]#1.00OTGTIFF [facility] Provider [place] 07-20-2024 Provider Orders [id number]#1.00OTGTIF F [facility] Erythropoietin, Serum LCon 1 09-16-2023 Erythropoietin LC 30.3 mIU/mL High 2.6-18.5 [facility] Comment on above: Result Comment: [employer] DxI 800 Immunoassay System Values obtained with different assay methods or kits cannot be used interchangeably. Results cannot be interpreted as absolute evidence of the presence or absence of malignant disease. Performed At: [facility] [address] [place] [address] [id number] Rosalva Cox PhD Ph:[phone] Performed By: #### 1 [id number], 8107966, 69561281, 17842442, 4693382, 8591487 ####[facility] (DEFAULT)[address] [place] [address] Provider [place] 07-17-2024 Provider Orders [id number]#1.00OTGTIFF Normal [facility] .Auto Diff 1on 07-16-[address] [place] % 6 % Normal 1-12 [facility] Comment on above: Performed By: #### 1 9872477, 6064775, 96845777, 93471998, 8896077, 9422433 ####[facility] (DEFAULT)[address] [place] [address] 69706 Baso Abs# 0.1 x10 Normal 0.0-0.2 [facility] Comment on above: Performed By: #### 1 7732606, 3841778, 90517144, 28021460, 3072704, 7160040 ####[facility] (DEFAULT)[address] [place] [address] 78409 Basophils/100 WBC (Bld) 0.8 % Normal 0.2-2.0 [facility] Comment on above: Performed By: #### 1 3384053, 8720638, 08209232, 52655615, 3617644, 0578604 ####[facility] (DEFAULT)[address] [place] [address] 06052 Eos Abs# 0.1 x10 Normal 0.0-0.4 [facility] Comment on above: Performed By: #### 1 5118445, 0846181, 32957174, 51554271, 4243403, 0440868 ####[facility] (DEFAULT)[address] [place] [address] 41920 Eosinophils/100 WBC (Bld) 1.6 % Normal 0.9-4.0 [facility] Comment on above: Performed By: #### 1 3302948, 8412600, 70554306, 41559123, 4995099, 9713191 ####[facility] (DEFAULT)[address] [place] [address] 18104 Lymph Abs# 2.0 x10 Normal 1.3-2.9 [facility] Comment on above: Performed By: #### 1 6290801, 2391359, 35422150, 55261646, 9083373, 5088745 ####[facility] (DEFAULT)[address] [place] [address] Lymphocytes/100 WBC (Bld) 24 % Normal 14-48 [facility] Comment on above: Performed By: #### 1 1547003, 7044057, 88359971, 05622656, 9156047, 1184869 ####[facility] (DEFAULT)[address] [place] [address] [place] Abs# 0.6 x10 Normal 0.0-0.8 [facility] Comment on above: Performed By: #### 1 5459294, 0394090, 58009557, 71888332, 2832036, 6612190 ####[facility] (DEFAULT)[address] [place] [address] Neut Abs# 5.9 x10 Normal 1.5-9.2 [facility] Comment on above: Performed By: #### 1 3679487, 0994935, 94712144, 80760868, 0681344, 7403310 ####[facility] (DEFAULT)[address] [place] [address] Neutrophils/100 WBC (Bld) 68 % Normal 44-88 [facility] Comment on above: Performed By: #### 1 8439725, 1440181, 72124636, 81162548, 6199489, 6342326 ####[facility] (DEFAULT)[address] [place] [address] CBC w/ Auto Diffon 4 Erythrocyte distribution width (RBC) [Ratio] 14.6 % Normal 11.5-15.0 [facility] Comment on above: Performed By: #### 1 2170517, 4960387, 91053103, 30381117, 9544139, 6604366 #### [facility] (DEFAULT) [address] [place] [address] Hematocrit (Bld) [Volume fraction] 60.0 % High 34.8-51.9 [facility] Comment on above: Performed By: #### 1 2088351, 3834766, 34875779, 34516113, 2706551, 1697426 #### [facility] (DEFAULT) [address] [place] [address] Hemoglobin (Bld) [Mass/Vol] 19.8 g/dL High 11.8-17.7 [facility] Comment on above: Performed By: #### 1 8884825, 3899963, 31073033, 96869670, 0715607, 3196990 #### [facility] (DEFAULT) [address] [place] [address] Man Diff? Auto Invalid Interpretation Code [facility] Comment on above: Performed By: #### 1 8605938, 0027109, 41419576, 45546765, 6650252, 6910137 #### [facility] (DEFAULT) [address] [place] [address] MCH (RBC) [Entitic mass] 34 pg Normal 24-34 [facility] Comment on above: Performed By: #### 1 1432683, 5710954, 02332963, 25526462, 0175434, 1310030 #### [facility] (DEFAULT) [address] [place] [address] MCHC (RBC) [Mass/Vol] 33 g/dL Normal 26-37 [facility] Comment on above: Performed By: #### 1 7651304, 5377305, 72043608, 01652153, 0087066, 5158360 #### [facility] (DEFAULT) [address] [place] [address] MCV (RBC) [Entitic vol] 101 fL High 81-100 [facility] Comment on above: Performed By: #### 1 6308823, 6938374, 54804395, 80018106, 8666934, 7715614 #### [facility] (DEFAULT) [address] [place] [address] Platelet 172 x10 Normal 138-427 [facility] Comment on above: Performed By: #### 1 8170078, 3454507, 59454790, 96029628, 2610363, 5720935 #### [facility] (DEFAULT) [address] [place] [address] Platelet mean volume (Bld) [Entitic vol] 8.5 fL Normal 6.3-10.2 [facility] Comment on above: Performed By: #### 1 1204246, 2045832, 06909889, 55547907, 3606426, 5886269 #### [facility] (DEFAULT) [address] [place] [address] RBC 5.92 x10 High 3.70-5.30 [facility] Comment on above: Performed By: #### 1 8290901, 4059484, 14206252, 94939647, 3961043, 6881089 #### [facility] (DEFAULT) [address] [place] [address] WBC 8.7 x10 Normal 3.5-10.5 [facility] Comment on above: Result Comment: Call ed to Oncology Performed By: #### 1 8403014, 8252685, 57910787, 75962664, 9355711, 3479942 #### [facility] (DEFAULT) [address] [place] [address] LDHon 07-16-2024 LDH 136.0 IU/L Normal 98.0-192.0 [facility] Comment on above: Performed By: #### 1 0373943, 5095415, 72409940, 79386298, 7608713, 2611807 ####[facility] (DEFAULT)[address] [place] [address] Retic Counton 07-16-2024 Reticulocyte 0.7 % Normal 0.5-1.5 [facility] Comment on above: Performed By: #### 1 9578520, 5386306, 18531185, 77326017, 6708804, 6240738 ####[facility] (DEFAULT)[address] [place] [address] Lab - Other Lab Resultson Lab - Other Lab Results [id number]#1.00OTGTIFF Normal [facility] Outside Recordson 07-09-2024 Outside Records [id number]#1.00OTGTIFF Normal [facility] Rad - Other Radiology Report on 07-09-2024 Rad - Other Radiology Report [id number]#1.00OTGTLUIS Normal [facility] CBC W/Diff, Automatedon 09- PATH REV Reviewed Normal [facility] Comment on above: Result Comment: Poly cythemia Clinical correlation necessary. Ezio Gómez M.D. 06/08/24 Performed By: #### L 500.2500, L100.0100, L501.9910 #### [facility] [address] [place], [address] Basic Metabolic Profile (BMP )on 06-07-2024 BUN/CRE 37.8 RATIO High 10-20 [facility] Comment on above: Performed By: #### L 500.2500, L100.0100, L501.9910 #### [facility] [address] [place], [address] CA,Total 9.5 mg/dL Normal 8.5-10.1 [facility] Comment on above: Performed By: #### L 500.2500, L100.0100, L501.9910 #### [facility] [address] [place], [address] Chloride [Moles/Vol] 101 mmol/L Normal 98-107 [facility] Comment on above: Performed By: #### L 500.2500, L100.0100, L501.9910 #### [facility] [address] [place], [address] CO2 [Moles/Vol] 33.0 mmol/L High 21.0-32.0 [facility] Comment on above: Performed By: #### L 500.2500, L100.0100, L501.9910 #### [facility] [address] [place], [address] Creatinine [Mass/Vol] 0.79 mg/dL Normal 0.70-1.30 [facility] Comment on above: Result Comment: The validity of the calculated GFR GFRAA in patients over 70 years has not been determined. Clinical correlation is essential. Performed By: #### L 500.2500, L100.0100, L501.9910 #### [facility] [address] [place], [address] EST GFR - AA 126 mL/min Normal >60 [facility] Comment on above: Result Comment: Afri can [place] GFR Calc Performed By: #### L 500.2500, L100.0100, L501.9910 #### [facility] [address] [place], [address] GAP 3 Low 5-15 [facility] Comment on above: Performed By: #### L 500.2500, L100.0100, L501.9910 #### [facility] [address] [place], [address] GFR/1.73 sq M.predicted among non-blacks MDRD (S/P/Bld) [Vol rate/Area] 104 mL/min/{1.73_m2} Normal >60 [facility] Comment on above: Result Comment: Non- GFR Calc Performed By: #### L 500.2500, L100.0100, L501.9910 #### [facility] [address] [place], [address] Glucose [Mass/Vol] 76 mg/dL Normal 74-106 [facility] Comment on above: Performed By: #### L 500.2500, L100.0100, L501.9910 #### [facility] [address] [place], [address] Potassium [Moles/Vol] 4.5 mmol/L Normal 3.5-5.1 [facility] Comment on above: Performed By: #### L 500.2500, L100.0100, L501.9910 #### [facility] [address] [place], [address] Sodium [Moles/Vol] 137 mmol/L Normal 136-145 [facility] Comment on above: Performed By: #### L 500.2500, L100.0100, L501.9910 #### [facility] [address] [place], [address] Urea nitrogen [Mass/Vol] 30 mg/dL High 7-18 [facility] Comment on above: Performed By: #### L 500.2500, L100.0100, L501.9910 #### [facility] [address] [place], [address] PSA,Total - Annual Screenon 06-07-2024 PSA,TOT SCREEN 0.61 ng/mL Normal 0.00-4.00 [facility] Comment on above: Result Comment: This test was performed using the TPSA assay method for the [employer] chemistry system. Values obtained with different assay methods cannot be used interchangably. When changing PSA assays in the course of monitoring a patient, additional sequential testing should be carried out to confirm baseline values. Performed By: #### L 500.2500, L100.0100, L501.9910 #### [facility] [address] [place], [address] US ankle/arm indiceson 05-28 US ankle/arm indices [facility] [address] [place] [address] Ultrasound Report Signed Patient: Farshad Junior MR#: [id number] : 1960 Acct:[id number] Age/Sex: 63 / M ADM Date: 05/28/24 Loc: [facility] Room: Type: [facility] Attending Dr: Pascual Gonzalez MD Ordering Provider: Pascual Gonzalez MD Date of Service: 05/28/24 US/US ankle/arm indices: I73.9 - Peripheral vascular disease, unspecified Copies to: Pascual Gonzalez MD LOWER EXTREMITY SEGMENTAL ARTERIAL DOPSCAN (PVR) INDICATION: Known peripheral vascular occlusive disease PROCEDURE: Right arm blood pressure is 101 , left is 93 . Pressures at the right ankle are 105 using the posterior tibial artery, and 106 using the dorsalis pedis artery with ankle-brachial index of 1.04 1.05 . Pressures at the left ankle are 100 using the posterior tibial artery, and 122 with ankle-brachial index of 0.99 1.21 . Wave forms by plethysmography are normal. US/US ankle/arm indices IMPRESSION: NO HEMODYNAMICALLY SIGNIFICANT PERIPHERAL VASCULAR OCCLUSIVE DISEASE AT REST IN EITHER LOWER EXTREMITY. Impression dictated by: Pascual Gonzalez M.D.05/28/2024 11:44 AM Dictation Location: [place] [address] Tech: Dayna Kennedy Transcribed By: SILVIA 05/28/24 1144 Dictated By: Pascual Gonzalez MD 05/28/24 1144 Signed By: 05/28/24 1144 Normal [facility] Carbohydrate AG -9on 10-02 CA 19-9 8 U/mL Normal 0-35 [facility] Comment on above: Result Comment: [employer] [employer] Electrochemiluminescence Immunoassay (ECLIA) Values obtained with different assay methods or kits cannot be used interchangeably. Results cannot be interpreted as absolute evidence of the presence or absence of malignant disease. Performed at: [address] [id number] [employer] Sales Associate: Kenny Blackwell PhD, Phone: [phone] Performed By: #### L 500.4050, L3100.5020, L100.0100, L400.2010, L504.8126, L542.5006 #### [facility] [address] [place], [address] BNP,B-Type NATRIURETIC PEPTI Abdirahman 09-30-2023 Natriuretic peptide B (Bld) [Mass/Vol] 16.2 pg/mL Normal 0-100 [facility] Comment on above: Performed By: #### L 500.4050, L3100.5020, L100.0100, L400.2011, L504.2610, L503.6620 #### [facility] [address] [place], [address] CBC W/Diff, Automatedon 09-12 Hematocrit (Bld) [Volume fraction] 64.1 % High 40-54 [facility] Comment on above: Performed By: #### L 500.4050, L3100.5020, L100.0100, L400.2010, L504.2610, L503.6620 #### [facility] [address] [place], [address] Hemoglobin (Bld) [Mass/Vol] 19.9 g/dL Invalid Interpretation Code 13.0-16.5 [facility] Comment on above: Result Comment: CRIT ICAL VALUE VERIFIED. CALLED TO DR. CORADO 09/30/23 1752 Rachelle Flowers. RESULTS READ BACK BY SAME . Performed By: #### L 500.4050, L3100.5020, L100.0100, L400.2010, L504.2610, L503.6620 #### [facility] [address] [place], [address] Absolute Lymph 1.92 X10 3/uL Normal 0.83-4.51 [facility] Comment on above: Performed By: #### L 500.4050, L3100.5020, L100.0100, L400.2010, L504.2610, L503.6620 #### [facility] [address] [place], [address] Absolute Neut 5.1 X10 3/uL Normal 2.0-7.7 [facility] Comment on above: Performed By: #### L 500.4050, L3100.5020, L100.0100, L400.2011, L504.2610, L503.6620 #### [facility] [address] [place], [address] Basophils/100 WBC (Bld) 1.4 % High 0-1 [facility] Comment on above: Performed By: #### L 500.4050, L3100.5020, L100.0100, L400.2010, L504.2610, L503.6620 #### [facility] [address] [place], [address] Eosinophils/100 WBC (Bld) 2.1 % Normal 0-5 [facility] Comment on above: Performed By: #### L 500.4050, L3100.5020, L100.0100, L400.2010, L504.2610, L503.6620 #### [facility] [address] [place], [address] Erythrocyte distribution width (RBC) [Ratio] 13.4 % Normal 11.6-14.6 [facility] Comment on above: Performed By: #### L 500.4050, L3100.5020, L100.0100, L400.2010, L504.2610, L503.6620 #### [facility] [address] [place], [address] IG% 0.400 Normal 0.0-0.9 [facility] Comment on above: Result Comment: IG% - Immature Granulocytes (promyelocytes, myelocytes and metamyelocytes) > 1% indicates that a LEFT SHIFT is Present. Performed By: #### L 500.4050, L3100.5020, L100.0100, L400.2010, L504.2610, L503.6620 #### [facility] [address] [place], [address] Lymphocytes/100 WBC (Bld) 24.0 % Normal 19-41 [facility] Comment on above: Performed By: #### L 500.4050, L3100.5020, L100.0100, L400.2010, L504.2610, L503.6620 #### [facility] [address] [place], [address] MCH (RBC) [Entitic mass] 31.1 pg Normal 27.0-32.0 [facility] Comment on above: Performed By: #### L 500.4050, L3100.5020, L100.0100, L400.2010, L504.2610, L503.6620 #### [facility] [address] [place], [address] MCHC (RBC) [Mass/Vol] 31.0 g/dL Low 32-36 [facility] Comment on above: Performed By: #### L 500.4050, L3100.5020, L100.0100, L400.2010, L504.2610, L503.6620 #### [facility] [address] [place], [address] MCV (RBC) [Entitic vol] 100.3 fL High 80-94 [facility] Comment on above: Performed By: #### L 500.4050, L3100.5020, L100.0100, L400.2010, L504.2610, L503.6620 #### [facility] [address] [place], [address] Monocytes/100 WBC (Bld) 8.3 % Normal 0-10 [facility] Comment on above: Performed By: #### L 500.4050, L3100.5020, L100.0100, L400.2010, L504.2610, L503.6620 #### [facility] [address] [place], [address] Neutrophils/100 WBC (Bld) 63.8 % Normal 47-70 [facility] Comment on above: Performed By: #### L 500.4050, L3100.5020, L100.0100, L400.2010, L504.2610, L503.6620 #### [facility] [address] [place], [address] Nucleated RBC (Bld) [#/Vol] 0 10*3/uL Normal 0-5 [facility] Comment on above: Performed By: #### L 500.4050, L3100.5020, L100.0100, L400.2010, L504.2610, L503.6620 #### [facility] [address] [place], [address] Platelet mean volume (Bld) [Entitic vol] 9.7 fL Normal 6.2-12.0 [facility] Comment on above: Performed By: #### L 500.4050, L3100.5020, L100.0100, L400.2010, L504.2610, L503.6620 #### [facility] [address] [place], [address] Platelets (Bld) [#/Vol] 233 10*3/uL Normal 150-450 [facility] Comment on above: Performed By: #### L 500.4050, L3100.5020, L100.0100, L400.2010, L504.2610, L503.6620 #### [facility] [address] [place], [address] RBC (Bld) [#/Vol] 6.39 10*6/uL High 4.6-6.2 [facility] Comment on above: Performed By: #### L 500.4050, L3100.5020, L100.0100, L400.2010, L504.2610, L503.6620 #### [facility] [address] [place], [address] RDW SD 49.8 fl High 35.1-43.9 [facility] Comment on above: Performed By: #### L 500.4050, L3100.5020, L100.0100, L400.2010, L504.2610, L503.6620 #### [facility] [address] [place], [address] WBC (Bld) [#/Vol] 8.0 10*3/uL Normal 4.4-11.0 [facility] Comment on above: Performed By: #### L 500.4050, L3100.5020, L100.0100, L400.2011, L504.2610, L503.6620 #### [facility] [address] [place], [address] Chest PA and Lateralon 09-30 Chest PA and Lateral [facility] [address] [place] [address] Chest PA and Lateral MR#: [id number] Acct: [id number] Name: FARSHAD JUNIOR Rep #: [id number] : 1960 M 63 From: Pantera Felix PCP: Dr. Smith Cooney DO Status: REG CLI Study: Chest PA and Lateral Date of Exam: 09/30/23 Exam# [id number] Ordering Dr: Smith Cooney DO [id number] INDICATION: HYPOXIA, Emphysema, pleural EFFUSION EXAMINATION/TECHNIQUE: X-RAY - XR Chest 2 Views COMPARISON: Prior study dated: 10/31/2016. FINDINGS: LINES/DEVICES: None. LUNGS: The lungs remain hyperinflated with COPD changes. No focal infiltrate is seen. No evidence of pleural effusions. MEDIASTINUM AND CARDIOVASCULAR STRUCTURES: Cardiac silhouette not enlarged. Central airways and mediastinal contour are unremarkable. BONES AND SOFT TISSUES: No demonstrated acute osseous changes. RAD/Chest PA and Lateral IMPRESSION: 1. COPD changes. 2. No radiographic evidence of acute cardiopulmonary disease. Electronically Signed: Pantera Fair MD at 16:10 EST , CC: Dr. Smith Cooney, DO Bank Teller: Signed Normal [facility] Comprehensive Metabolic Prof ilon 09-30-2023 Albumin [Mass/Vol] 3.8 g/dL Normal 3.2-5.0 [facility] Comment on above: Order Comment: 1 Performed By: #### L 500.4050, L3100.5020, L100.0100, L400.2010, L504.2610, L503.6620 #### [facility] [address] [place], [address] Albumin/Globulin [Mass ratio] 1.1 {ratio} Normal 0.9-2.4 [facility] Comment on above: Order Comment: 1 Performed By: #### L 500.4050, L3100.5020, L100.0100, L400.2010, L504.2610, L503.6620 #### [facility] [address] [place], [address] ALK P 70 U/L Normal 45-117 [facility] Comment on above: Order Comment: 1 Performed By: #### L 500.4050, L3100.5020, L100.0100, L400.2010, L504.2610, L503.6620 #### [facility] [address] [place], [address] ALT [Catalytic activity/Vol] 31 U/L Normal 16-61 [facility] Comment on above: Order Comment: 1 Performed By: #### L 500.4050, L3100.5020, L100.0100, L400.2010, L504.2610, L503.6620 #### [facility] [address] [place], [address] AST [Catalytic activity/Vol] 21 U/L Normal 15-37 [facility] Comment on above: Order Comment: 1 Result Comment: Slig ht Hemolysis, Result may be falsely increased. Performed By: #### L 500.4050, L3100.5020, L100.0100, L400.2010, L504.2610, L503.6620 #### [facility] [address] [place], [address] Bilirubin [Mass/Vol] 0.60 mg/dL Normal 0.20-1.00 [facility] Comment on above: Order Comment: 1 Result Comment: For patients on eltrombopag therapy, use of Dimension [place] TBIL is not recommended. Performed By: #### L 500.4050, L3100.5020, L100.0100, L400.2010, L504.2610, L503.6620 #### [facility] [address] [place], [address] BUN/CRE 33.7 RATIO High 10-20 [facility] Comment on above: Order Comment: 1 Performed By: #### L 500.4050, L3100.5020, L100.0100, L4.2010, L504.2610, L503.6620 #### [facility] [address] [place], [address] CA,Total 9.5 mg/dL Normal 8.5-10.1 [facility] Comment on above: Order Comment: 1 Performed By: #### L 500.4050, L3100.5020, L100.0100, L4, L504.2610, L503.6620 #### [facility] [address] [place], [address] Chloride [Moles/Vol] 101 mmol/L Normal 98-107 [facility] Comment on above: Order Comment: 1 Performed By: #### L 500.4050, L3100.5020, L100.0100, L400.2010, L504.2610, L503.6620 #### [facility] [address] [place], [address] CO2 [Moles/Vol] 36.0 mmol/L High 21.0-32.0 [facility] Comment on above: Order Comment: 1 Performed By: #### L 500.4050, L3100.5020, L100.0100, L400.2010, L504.2610, L503.6620 #### [facility] [address] [place], [address] Creatinine [Mass/Vol] 1.01 mg/dL Normal 0.70-1.30 [facility] Comment on above: Order Comment: 1 Result Comment: The validity of the calculated GFR GFRAA in patients over 70 years has not been determined. Clinical correlation is essential. Performed By: #### L 500.4050, L3100.5020, L100.0100, L400.2010, L504.2610, L503.6620 #### [facility] [address] [place], [address] EST GFR - AA 96 mL/min Normal >60 [facility] Comment on above: Order Comment: 1 Result Comment: Afri can [place] GFR Calc Performed By: #### L 500.4050, L3100.5020, L100.0100, L400.2010, L504.2610, L503.6620 #### [facility] [address] [place], [address] GAP 2 Low 5-15 [facility] Comment on above: Order Comment: 1 Performed By: #### L 500.4050, L3100.5020, L100.0100, L4, L504.2610, L503.6620 #### [facility] [address] [place], [address] GFR/1.73 sq M.predicted among non-blacks MDRD (S/P/Bld) [Vol rate/Area] 79 mL/min/{1.73_m2} Normal >60 [facility] Comment on above: Order Comment: 1 Result Comment: Non- GFR Calc Performed By: #### L 500.4050, L3100.5020, L100.0100, L400.2010, L504.2610, L503.6620 #### [facility] [address] [place], [address] Globulin (S) [Mass/Vol] 3.6 g/dL Normal 2.2-4.2 [facility] Comment on above: Order Comment: 1 Performed By: #### L 500.4050, L3100.5020, L100.0100, L400.2010, L504.2610, L503.6620 #### [facility] [address] [place], [address] Glucose [Mass/Vol] 92 mg/dL Normal 74-106 [facility] Comment on above: Order Comment: 1 Performed By: #### L 500.4050, L3100.5020, L100.0100, L400.2010, L504.2610, L503.6620 #### [facility] [address] [place], [address] Potassium [Moles/Vol] 4.8 mmol/L Normal 3.5-5.1 [facility] Comment on above: Order Comment: 1 Result Comment: Slig ht Hemolysis, Result may be falsely increased. Performed By: #### L 500.4050, L3100.5020, L100.0100, L400.2010, L504.2610, L503.6620 #### [facility] [address] [place], [address] Sodium [Moles/Vol] 139 mmol/L Normal 136-145 [facility] Comment on above: Order Comment: 1 Performed By: #### L 500.4050, L3100.5020, L100.0100, L400.2010, L504.2610, L503.6620 #### [facility] [address] [place], [address] T PROT 7.4 g/dL Normal 6.4-8.2 [facility] Comment on above: Order Comment: 1 Performed By: #### L 500.4050, L3100.5020, L100.0100, L400.2010, L504.2610, L503.6620 #### [facility] [address] [place], [address] Urea nitrogen [Mass/Vol] 34 mg/dL High 7-18 [facility] Comment on above: Order Comment: 1 Performed By: #### L 500.4050, L3100.5020, L100.0100, L400.2010, L504.2610, L503.6620 #### [facility] [address] [place], [address] LDHon 09-30-2023 LDH 244 U/L High 87-241 [facility] Comment on above: Order Comment: 1 Result Comment: Slig ht Hemolysis, Result may be falsely increased. Performed By: #### L 500.4050, L3100.5020, L100.0100, L4, L504.2610, L503.6620 #### [facility] [address] [place], [address] Urinalysis, Routine (Dipstic k)on 09-30-2023 BILIRUBIN URINE 1 mg/dL Abnormal Negative [facility] Comment on above: Order Comment: CLEAN CATCH Result Comment: COLO R OF URINE MAY AFFECT DIPSTICK RESULTS. Performed By: #### L 500.4050, L3100.5020, L100.0100, L400.2010, L504.2610, L503.6620 #### [facility] [address] [place], [address] Clarity (U) Sl. Cloudy Normal Clear [facility] Comment on above: Order Comment: CLEAN CATCH Performed By: #### L 500.4050, L3100.5020, L100.0100, L400.2010, L504.2610, L503.6620 #### [facility] [address] [place], [address] Color (U) Yellow Normal Yellow [facility] Comment on above: Order Comment: CLEAN CATCH Performed By: #### L 500.4050, L3100.5020, L100.0100, L400.2011, L504.2610, L503.6620 #### [facility] [address] [place], [address] GLUCOSE, UR Normal Normal Normal [facility] Comment on above: Order Comment: CLEAN CATCH Performed By: #### L 500.4050, L3100.5020, L100.0100, L400.2010, L504.2610, L503.6620 #### [facility] [address] [place], [address] KETONE UR Negative Normal Negative [facility] Comment on above: Order Comment: CLEAN CATCH Performed By: #### L 500.4050, L3100.5020, L100.0100, L400.2010, L504.2610, L503.6620 #### [facility] [address] [place], [address] LEUK ESTERASE 100 /ul Abnormal Negative [facility] Comment on above: Order Comment: CLEAN CATCH Performed By: #### L 500.4050, L3100.5020, L100.0100, L400.2010, L504.2610, L503.6620 #### [facility] [address] [place], [address] Nitrite Ql (U) Negative Normal Negative [facility] Comment on above: Order Comment: CLEAN CATCH Performed By: #### L 500.4050, L3100.5020, L100.0100, L400.2010, L504.2610, L503.6620 #### [facility] [address] [place], [address] OCCULT BLOOD-UR 25 /ul Abnormal Negative [facility] Comment on above: Order Comment: CLEAN CATCH Performed By: #### L 500.4050, L3100.5020, L100.0100, L400.2010, L504.2610, L503.6620 #### [facility] [address] [place], [address] pH UR 6.5 Normal 5.0 - 8.0 [facility] Comment on above: Order Comment: CLEAN CATCH Performed By: #### L 500.4050, L3100.5020, L100.0100, L400.2010, L504.2610, L503.6620 #### [facility] [address] [place], [address] PROT DIPSTX 100 mg/dl Abnormal Negative [facility] Comment on above: Order Comment: CLEAN CATCH Performed By: #### L 500.4050, L3100.5020, L100.0100, L400.2010, L504.2610, L503.6620 #### [facility] [address] [place], [address] SP.GR. DIPSTX 1.020 Normal 1.002-1.030 [facility] Comment on above: Order Comment: CLEAN CATCH Performed By: #### L 500.4050, L3100.5020, L100.0100, L400.2010, L504.2610, L503.6620 #### [facility] [address] [place], [address] UROBILI 1 mg/dl Abnormal Normal [facility] Comment on above: Order Comment: CLEAN CATCH Performed By: #### L 500.4050, L3100.5020, L100.0100, L400.2010, L504.2610, L503.6620 #### [facility] [address] [place], [address] Absolute lymphocyte countOrd ered By: Dr. Cooney on 11-18-2022 Lymphocytes Auto (Unsp spec) [#/Vol] 1.97 10*3/uL 0.83-4.51 [facility] Basophil percentageOrdered B y: Dr. Cooney on 11-18-2022 Basophils/100 WBC (Bld) 0.9 % 0-1 [facility] Bilirubin [Mass/Vol] 0.30 mg/dL 0.20-1.00 [facility] Comment on above: For patients on eltr ombopag therapy, use of Dimension [place] TBIL is not recommended. Chloride [Moles/Vol] 99 mmol/L 98-107 [facility] Eosinophils/100 WBC (Bld) 7.2 % 0-5 [facility] Glucose [Mass/Vol] 97 mg/dL 74-106 [facility] Neutrophils (Bld) [#/Vol] 4.7 10*3/uL 2.0-7.7 [facility] Neutrophils/100 WBC (Bld) 58.2 % 47-70 [facility] Potassium [Moles/Vol] 4.6 mmol/L 3.5-5.1 [facility] Protein [Mass/Vol] 7.1 g/dL 6.4-8.2 [facility] Sodium [Moles/Vol] 138 mmol/L 136-145 [facility] WBC (Bld) [#/Vol] 8.0 10*3/uL 4.4-11.0 [facility] Blood erythrocytes count (nu mber/volume)Ordered By: Dr. Cooney on 11-18-2022 RBC (Bld) [#/Vol] 5.67 10*6/uL 4.6-6.2 [facility] Blood hemoglobin measurement (mass/volume)Ordered By: Dr. Cooney on 11-18-2022 Hemoglobin (Bld) [Mass/Vol] 18.4 g/dL 13.0-16.5 [facility] Comment on above: CRITICAL VALUE VERIF IED. CALLED TO DR. COONEY11/18/[id number] Radha Yang.RESULTS READ BACK BY SAME . Blood lymphocytes/100 leukoc ytesOrdered By: Dr. Cooney on 11-18-2022 Lymphocytes/100 WBC (Bld) 24.7 % 19-41 [facility] Blood monocytes/100 leukocyt esOrdered By: Dr. Cooney on 11-18-2022 Monocytes/100 WBC (Bld) 8.7 % 0-10 [facility] Blood platelet mean volumeOr dered By: Dr. Cooney on 11-18-2022 Platelet mean volume (Bld) [Entitic vol] 9.8 fL 6.2-12.0 [facility] Determination of erythrocyte mean corpuscular volume (MCV)Ordered By: Dr. Cooney on 11-18-2022 MCV (RBC) [Entitic vol] 100.0 fL 80-94 [facility] Hematocrit Auto (Bld) [Volum e fraction]Ordered By: Dr. Cooney on 11-18-2022 Hematocrit (Bld) [Volume fraction] 56.7 % 40-54 [facility] - Chemistry and C hemistry - challengeOrdered By: Dr. Cooney on 11-18-2022 ALP [Catalytic activity/Vol] 68 U/L 45-117 [facility] ALT [Catalytic activity/Vol] 24 U/L 16-61 [facility] CO2 [Moles/Vol] 34.0 mmol/L 21.0-32.0 [facility] Globulin (S) [Mass/Vol] 3.3 g/dL 2.2-4.2 [facility] Urea nitrogen/Creatinine [Mass ratio] 34.7 mg/mg 10-20 [facility] - Hematology and Cell countsOrdered By: Dr. Cooney on 11-18-2022 Erythrocyte distribution width (RBC) [Entitic vol] 49.6 fL 35.1-43.9 [facility] Erythrocyte distribution width (RBC) [Ratio] 13.2 % 11.6-14.6 [facility] Immature granulocytes/100 WBC (Bld) 0.300 % 0.0-0.9 [facility] Comment on above: IG% - Immature Granu locytes (promyelocytes, myelocytes and metamyelocytes) > 1% indicates that a LEFT SHIFT is Present. MCH (RBC) [Entitic mass] 32.5 pg 27.0-32.0 [facility] Nucleated RBC/100 WBC (Bld) [Ratio] 0 % 0-5 [facility] MCHC Auto (RBC) [Mass/Vol]Or dered By: Dr. Cooney on 11-18-2022 MCHC (RBC) [Mass/Vol] 32.5 g/dL 32-36 [facility] No Panel InformationOrdered By: Dr. Cooney on 11-18-2022 Estimated GFR (MDRD) Amer 106 mL/min >60 [facility] Comment on above: GFR Calc Estimated GFR (MDRD) Non-Af Amer 88 mL/min >60 [facility] Comment on above: Non- GFR Calc Prostate Specific Antigen Screen 0.59 ng/mL 0.00-4.00 [facility] Comment on above: This test was perfor med using the TPSA assay method for [employer] chemistry system. Values obtained with differentassay methods cannot be used interchangably.When changing PSA assays in the course of monitoring apatient, additional sequential testing should be carriedout to confirm baseline values. Platelets bldOrdered By: Dr. Cooney on 11-18-2022 Platelets (Bld) [#/Vol] 235 10*3/uL 150-450 [facility] Review by pathologistOrdered By: Dr. Cooney on 11-18-2022 Pathologist review Lenin (Unsp spec) [Interp] Reviewed [facility] Comment on above: Previous reported re sult: Yasmin mclain Edited by: VETO on 11/22/22:0900Polycythemia Macrocytosis.Clinical correlation necessary.Ezio Gómez M.D. 11/22/22 AMENDED REPORT 11/22/22 0900 PATH REV previously reported as: Yasmin mclain Serum or plasma albumin terell urement (mass/volume)Ordered By: Dr. Cooney on 11-18-2022 Albumin [Mass/Vol] 3.8 g/dL 3.2-5.0 [facility] Serum or plasma albumin/glob ulin mass ratioOrdered By: Dr. Cooney on 11-18-2022 Albumin/Globulin [Mass ratio] 1.2 {ratio} 0.9-2.4 [facility] Serum or plasma calcium terell urement (mass/volume)Ordered By: Dr. Cooney on 11-18-2022 Calcium [Mass/Vol] 9.8 mg/dL 8.5-10.1 [facility] Serum or plasma creatinine m easurement (mass/volume)Ordered By: Dr. Cooney on 11-18-2022 Creatinine [Mass/Vol] 0.92 mg/dL 0.70-1.30 [facility] Comment on above: The validity of the calculated GFR & GFRAA in patients over 70 years has not been determined. Clinical correlation is essential. Serum or plasma urea nitroge n measurement (mass/volume)Ordered By: Dr. Cooney on 11-18-2022 Urea nitrogen [Mass/Vol] 32 mg/dL 7-18 [facility] Thin prep Papanicolaou smear with manual screeningOrdered By: Dr. Cooney on 11-18-2022 Thin prep Papanicolaou smear with manual screening 24 U/L 15- [facility] Thin prep Papanicolaou smear with manual screening 5 5-15 [facility] Vital Signs Date Time Vital Sign Value Performing Clinician Facility 03-27-2025 11:39-0400 Body temperature 97.59 [degF] PAU Hernandez MD Work Phone: [facility] 03-27-2025 11:39-0400 Diastolic blood pressure 64 mm[Hg] PAU Hernandez MD Work Phone: [facility] 03-27-2025 11:39-0400 Heart rate 62 /min PAU Hernandez MD Work Phone: [facility] 03-27-2025 11:39-0400 Respiratory rate 18 /min PAU Hernandez MD Work Phone: [facility] 03-27-2025 11:39-0400 SaO2% (BldA) [Mass fraction] 97 % PAU Hernandez MD Work Phone: [facility] 03-27-2025 11:39-0400 Systolic blood pressure 96 mm[Hg] PAU Hernandez MD Work Phone: [facility] 03-26-2025 06:55-0400 Body height 188 cm PAU Hernandez MD Work Phone: [facility] 03-26-2025 06:55-0400 Body mass index (BMI) [Ratio] 16.69 kg/m2 PAU Hernandez MD Work Phone: [facility] [employer] [facility] 03-26-2025 06:55-0400 Body weight 58.97 kg PAU Hernandez MD Work Phone: [facility] 02-18-2025 12:52-0400 Body height 188 cm PAU Hernandez MD Work Phone: [facility] 02-18-2025 12:52-0400 Body mass index (BMI) [Ratio] 17.33 kg/m2 PAU Hernandez MD Work Phone: [facility] 02-18-2025 12:52-0400 Body weight 61.24 kg PAU Hernandez MD Work Phone: [facility] 02-18-2025 12:52-0400 Diastolic blood pressure 70 mm[Hg] PAU Hernandez MD Work Phone: [facility] 02-18-2025 12:52-0400 Heart rate 70 /min PAU Hernandez MD Work Phone: [facility] 02-18-2025 12:52-0400 Systolic blood pressure 96 mm[Hg] PAU Hernandez MD Work Phone: [facility] 02-18-2025 12:51-0400 Body height 188 cm Nadeem Bhatti MD Work Phone: [facility] 02-18-2025 12:51-0400 Body mass index (BMI) [Ratio] 17.33 kg/m2 Nadeem Bhatti MD Work Phone: [facility] 02-18-2025 12:51-0400 Body weight 61.24 kg Nadeem Bhatti MD Work Phone: [facility] 02-18-2025 12:51-0400 Diastolic blood pressure 70 mm[Hg] Nadeem Bhatti MD Work Phone: [facility] 02-18-2025 12:51-0400 Heart rate 70 /min Nadeem Bhatti MD Work Phone: [facility] 02-18-2025 12:51-0400 Systolic blood pressure 96 mm[Hg] Nadeem Bhatti MD Work Phone: [facility] 12-18-2024 15:28-0400 Body height 188 cm PAU Hernandez MD Work Phone: [facility] 12-18-2024 15:28-0400 Body mass index (BMI) [Ratio] 17.58 kg/m2 PAU Hernandez MD Work Phone: [facility] 12-18-2024 15:28-0400 Body weight 62.14 kg PAU Hernandez MD Work Phone: [facility] 12-18-2024 15:28-0400 Diastolic blood pressure 78 mm[Hg] PAU Hernandez MD Work Phone: [facility] 12-18-2024 15:28-0400 Heart rate 76 /min PAU Hernandez MD Work Phone: [facility] 12-18-2024 15:28-0400 SaO2% (BldA) [Mass fraction] 96 % PAU Hernandez MD Work Phone: [facility] 12-18-2024 15:28-0400 Systolic blood pressure 106 mm[Hg] PAU Hernandez MD Work Phone: [facility] 10-11-2024 08:55-0500 Body height 187.96 cm [facility] 10-11-2024 08:55-0500 Body mass index (BMI) [Ratio] 16.8 kg/m2 [facility] 10-11-2024 08:55-0500 Body temperature 97.8 [degF] [facility] 10-11-2024 08:55-0500 Body weight 59.59 kg [facility] 10-11-2024 08:55-0500 Diastolic blood pressure 82 mm[Hg] [facility] 10-11-2024 08:55-0500 Heart rate 86 /min [facility] 10-11-2024 08:55-0500 Respiratory rate 20 /min [facility] 10-11-2024 08:55-0500 SaO2% (BldA) [Mass fraction] 96 % [facility] 10-11-2024 08:55-0500 Systolic blood pressure 119 mm[Hg] [facility] 10-04-2024 14:03-0500 Body mass index (BMI) [Ratio] 17.33 kg/m2 Kleber Sandoval MD Work Phone: [facility] 10-04-2024 14:03-0500 Body weight 61.24 kg Kleber Sandoval MD Work Phone: [facility] [employer] [facility] 10-04-2024 14:03-0500 Diastolic blood pressure 83 mm[Hg] Kleber Sandoval MD Work Phone: [facility] [employer] [facility] 10-04-2024 14:03-0500 Heart rate 97 /min Kleber Sandoval MD Work Phone: [facility] [employer] 10-04-2024 14:03-0500 SaO2% (BldA) [Mass fraction] 93 % Kleber Sandoval MD Work Phone: [facility] [employer] 10-04-2024 14:03-0500 Systolic blood pressure 119 mm[Hg] Kleber Sandoval MD Work Phone: [facility] [employer] [facility] 09-21-2024 14:08-0500 Body height 188 cm PAU Hernandez MD Work Phone: [facility] [employer] [facility] 09-21-2024 14:08-0500 Body mass index (BMI) [Ratio] 20.02 kg/m2 PAU Hernandez MD Work Phone: [facility] [employer] 09-21-2024 14:08-0500 Body weight 70.76 kg PAU Hernandez MD Work Phone: [facility] [employer] [facility] 09-21-2024 14:08-0500 Diastolic blood pressure 80 mm[Hg] PAU Hernandez MD Work Phone: [facility] [employer] [facility] 09-21-2024 14:08-0500 Heart rate 74 /min PAU Hernandez MD Work Phone: [facility] 09-21-2024 14:08-0500 SaO2% (BldA) [Mass fraction] 91 % PAU Hernandez MD Work Phone: [facility] 09-21-2024 14:08-0500 Systolic blood pressure 102 mm[Hg] PAU Hernandez MD Work Phone: [facility] 05-28-2024 11:17-0400 Body height 187.96 cm MD Pascual Gonzalez Work Phone: [facility] 05-28-2024 11:17-0400 Body mass index (BMI) [Ratio] 17.9 kg/m2 MD Pascual Gonzalez Work Phone: [facility] 05-28-2024 11:17-0400 Body temperature 97.1 [degF] MD Pascual Gonzalez Work Phone: [facility] 05-28-2024 11:17-0400 Body weight 63.5 kg MD Pascual Gonzalez Work Phone: [facility] 05-28-2024 11:17-0400 Diastolic blood pressure 60 mm[Hg] MD Pascual Gonzalez Work Phone: [facility] 05-28-2024 11:17-0400 Heart rate 109 /min MD Pascual Gonzalez Work Phone: [facility] 05-28-2024 11:17-0400 Systolic blood pressure 90 mm[Hg] MD Pascual Gonzalez Work Phone: [facility] 11-28-2023 10:22-0400 Body height 187.96 cm [facility] 11-28-2023 10:22-0400 Body mass index (BMI) [Ratio] 17.3 kg/m2 [facility] 11-28-2023 10:22-0400 Body temperature 97.8 [degF] [facility] 11-28-2023 10:22-0400 Body weight 61.23 kg [facility] 11-28-2023 10:22-0400 Diastolic blood pressure 62 mm[Hg] [facility] 11-28-2023 10:22-0400 Heart rate 69 /min [facility] 11-28-2023 10:22-0400 Respiratory rate 16 /min [facility] 11-28-2023 10:22-0400 SaO2% (BldA) [Mass fraction] 87 % [facility] 11-28-2023 10:22-0400 Systolic blood pressure 104 mm[Hg] [facility] Encounters Encounter Date Encounter Type Care Provider Facility Start: 04-22-2025 End: 04-22-2025 Follow-up encounter Laina Neely RN [facility] Comment on above: Echo complete W/Stra in Imaging Start: 04-18-2025 ambulatory [facility] Start: 04-15-2025 End: 04-15-2025 ambulatory [facility] Facility:[facility] Start: 04-09-2025 End: 04-09-2025 Orders Only Lali Hernandez MD Work Phone: [facility] Comment on above: Status post tricuspi d valve repair (Primary Dx) Start: 04-02-2025 Emergency department patient visit [facility] Facility:[facility] Start: 04-02-2025 [facility] Facility: [facility] Start: 03-26-2025 End: 03-26-2025 ambulatory ABRAHAM HERNANDEZ [facility] Start: 03-26-2025 End: 03-27-2025 Evaluation and management of inpatient Lali Hernandez MD Work Phone: [facility] - GEN 5 Acute Comment on above: Severe tricuspid christopher ve regurgitation Start: 03-25-2025 End: 03-25-2025 Telephone encounter Rosaline BRYANT Work Phone: [facility] Start: 03-22-2025 End: 05-22-2025 Orders Only Rosaline BRYANT Work Phone: [facility] Comment on above: CBC, Basic Metabolic Panel, Protime-INR, Albumin Start: 03-20-2025 End: 03-20-2025 Orders [facility] Comment on above: Severe tricuspid christopher ve regurgitation (Primary Dx); Shortness of breath Start: 03-14-2025 End: 03-14-2025 Telephone encounter Rosaline BRYANT Work Phone: [facility] Start: 03-01-2025 End: 03-01-2025 Telephone encounter [facility] Comment on above: TV CRUZITO Prior Auth Start: 02-18-2025 End: 02-18-2025 Office outpatient new 45 minutes Lali Hernandez MD Work Phone: [facility] Comment on above: Severe tricuspid christopher ve regurgitation (Primary Dx) Start: 02-18-2025 End: 02-18-2025 Office outpatient visit 25 minutes Nadeem Bhatti MD Work Phone: [facility] Comment on above: Pulmonary hypertensi on (CMS-HCC) (Primary Dx); Severe tricuspid regurgitation Start: 02-18-2025 End: 02-18-2025 ambulatory NADEEM BHATTI [facility] Start: 12-27-2024 End: 12-27-2024 ambulatory [facility] Start: 12-24-2024 End: 12-24-2024 ambulatory Lali HERNANDEZ [facility] Start: 12-19-2024 End: 12-19-2024 Documentation procedure Lali Hernandez MD [facility] Start: 12-18-2024 End: 12-18-2024 Office outpatient visit 40 minutes Lali Hernandez MD Work Phone: [facility] Comment on above: Severe tricuspid reg urgitation (Primary Dx); Shortness of breath; Severe tricuspid valve regurgitation Start: 12-18-2024 End: 12-18-2024 ambulatory Lali HERNANDEZ [facility] Start: 12-03-2024 End: 12-03-2024 Telephone encounter Mena Baltazar CNA [facility] Start: 11-28-2024 End: 11-28-2024 Documentation procedure Rosaline BRYANT Work Phone: [facility] Start: 11-16-2024 End: 11-16-2024 ambulatory RYANN WASHINGTON [facility] Start: 11-15-2024 End: 11-15-2024 Telephone encounter Radha Mcgraw MA [facility] Start: 11-14-2024 End: 11-14-2024 Orders Only Rosaline BRYANT Work Phone: [facility] Start: 11-13-2024 End: 11-14-2024 Telephone encounter Laina Neely RN [facility] Comment on above: Cath Start: 11-06-2024 End: 11-06-2024 Telephone encounter Stacey Hirsch RN [facility] Comment on above: Cardiac Cath Denial Start: 11-02-2024 End: 11-02-2024 ambulatory KLEBER R [facility] Start: 11-01-2024 End: 11-01-2024 Telephone encounter Rosaline BRYANT Work Phone: [facility] Start: 11-01-2024 End: 11-01-2024 ambulatory GREG HERNANDEZ [facility] Start: 10-31-2024 End: 10-31-2024 Orders Only Rosaline BRYANT Work Phone: [facility] Start: 10-29-2024 End: 10-29-2024 Orders Only Greg Hernandez PA-C Work Phone: [facility] Comment on above: IVC thrombosis (CMS- HCC) (Primary Dx) Start: 10-26-2024 End: 10-26-2024 ambulatory SMITH Nahomi [facility] Start: 10-25-2024 End: 10-26-2024 Orders Only Meli Sandoval RN [facility] Comment on above: Acute chest pain (Pr imary Dx); Pulmonary hypertension (CMS-HCC); Severe tricuspid regurgitation; Shortness of breath; PFO (patent foramen ovale) Start: 10-16-2024 End: 10-16-2024 ambulatory RENAE WEEMS [facility] Start: 10-15-2024 End: 10-15-2024 ambulatory [facility] Facility:[facility] Start: 10-11-2024 End: 10-11-2024 ambulatory [facility] Work Phone: Start: 10-11-2024 End: 10-11-2024 Patient encounter procedure [facility] Work Phone: Start: 10-05-2024 End: 10-05-2024 Telephone encounter Rosaline BRYANT Work Phone: [facility] Start: 10-04-2024 End: 10-04-2024 Office outpatient visit 25 minutes Kleber Sandoval MD Work Phone: [facility] Comment on above: Shortness of breath (Primary Dx) Start: 10-04-2024 End: 10-04-2024 ambulatory KLEBER SANDOVAL [facility] Start: 09-21-2024 End: 09-21-2024 Office outpatient new 45 minutes Lali Hernandez MD Work Phone: [facility] Comment on above: Pulmonary hypertensi on (CMS-HCC) (Primary Dx); PFO (patent foramen ovale); Severe tricuspid regurgitation Start: 09-21-2024 End: 09-21-2024 ambulatory ABRAHAM HERNANDEZ [facility] Start: 09-03-2024 End: 09-03-2024 Documentation procedure Rosaline BRYANT Work Phone: [facility] Start: 09-03-2024 End: 09-03-2024 Telephone encounter Crissy Hay APRN-SECURITIES UNDERWRITER Work Phone: [facility] Start: 08-30-2024 End: 08-30-2024 Telephone encounter [facility] Comment on above: SILVESTRE/Cardiac Cath Start: 08-30-2024 End: 08-30-2024 ambulatory Kleber Madhavi Sandoval Facility:[facility] Start: 08-22-2024 ambulatory [facility] Start: 08-21-2024 End: 08-21-2024 Chart abstracting Kleber Sandoval MD Work Phone: [facility] Start: 08-08-2024 End: 08-08-2024 ambulatory [facility] Facility:[facility] Start: 08-07-2024 End: 08-07-2024 ambulatory [facility] Facility:[facility] Start: 08-07-2024 End: 08-07-2024 ambulatory [facility] Facility:[facility] Start: 07-05-2024 ambulatory [facility] Facility:[facility] Start: 06-07-2024 End: 06-07-2024 ambulatory [facility] Facility:[facility] Start: 05-28-2024 End: 05-28-2024 ambulatory NON STAFF [facility] Work Phone: Start: 05-28-2024 End: 05-28-2024 Patient encounter procedure MD Pascual Gonzalez Work Phone: [facility] Work Phone: Start: 11-28-2023 End: 11-28-2023 ambulatory [facility] Work Phone: Start: 11-28-2023 End: 11-28-2023 Patient encounter procedure [facility] Work Phone: Start: 09-30-2023 End: 09-30-2023 ambulatory [facility] Facility:[facility] Start: 11-18-2022 End: 11-18-2022 ambulatory [facility] Work Phone: Start: 11-18-2022 End: 11-18-2022 Patient encounter procedure [facility] Procedures Date Procedure Procedure Detail Performing Clinician Start: 03-27-2025 Echo tthrc r-t 2d w/wom-mode compl spec&colr d Lali Hernandez MD Work Phone: Start: 03-27-2025 Basic metabolic pane l calcium total Lali Hernandez MD Work Phone: Start: 03-26-2025 Blood count hematocrit Wiliam L Degroot AGRICULTURAL LOAN OFFICER-SECURITIES UNDERWRITER Work Phone: Start: 03-26-2025 Radiologic exam ches t single view Lali Hernandez MD Work Phone: Start: 03-26-2025 STRUCTURAL HEART PROCEDURE Lali Hernandez MD Work Phone: Start: 03-26-2025 STRUCTURAL HEART PROCEDURE Lali Hernandez MD Work Phone: Start: 03-26-2025 End: 03-26-2025 Coagulation time activated P Abraham nation MD Work Phone: Start: 03-26-2025 REPEATED ABORH P Abraham garcia MD Work Phone: Start: 03-26-2025 Adult depression scr eening assessment PAU Hernandez MD Work Phone: Start: 12-18-2024 Ecg routine ecg w/le ast 12 lds w/i&r Lali Hernandez MD Work Phone: Start: 12-18-2024 Follow-up visit Follow-up Lali HERNANDEZ Start: 10-04-2024 Follow-up visit Follow-up OLAMIDE SANDOVAL Start: 05-28-2024 Ankle brachial press ure index MD Pascual Gonzalez Work Phone: Plan of Treatment Date Care Activity Detail Author Start: 03-26-2026 Adult BMI Screening Adult BMI Screening [facility] Start: 03-26-2026 Depression Screening Depression Screening [facility] Start: 02-18-2026 Adult BMI Screening Adult BMI Screening [facility] Start: 02-18-2026 Tobacco Screening Tobacco Screening [facility] Start: 12-18-2025 Adult BMI Screening Adult BMI Screening [facility] Start: 12-18-2025 Tobacco Screening Tobacco Screening [facility] Start: 11-16-2025 Adult BMI Screening Adult BMI Screening [facility] Start: 11-16-2025 Tobacco Screening Tobacco Screening [facility] Start: 11-02-2025 Adult BMI Screening Adult BMI Screening [facility] Start: 11-02-2025 Tobacco Screening Tobacco Screening [facility] Start: 10-04-2025 Adult BMI Screening Adult BMI Screening [facility] Start: 10-04-2025 Tobacco Screening Tobacco Screening [facility] Start: 09-21-2025 Adult BMI Screening Adult BMI Screening [facility] Start: 09-21-2025 Tobacco Screening Tobacco Screening [facility] Start: 08-30-2025 Adult BMI Screening Adult BMI Screening [facility] Start: 08-30-2025 Tobacco Screening Tobacco Screening [facility] Start: 08-01-2025 End: 08-01-2025 Patient encounter procedure 08/01/2025 1:30 PM EST Office Visit [facility] [address] [place] [phone] Kleber Sandoval MD [address] [place] [address] [facility] Start: 05-13-2025 COVID-19 Vaccine ( season) COVID-19 Vaccine ( season) [facility] Start: 05-13-2025 Influenza vaccination Influenza Vaccine [facility] Start: 04-09-2025 End: 04-09-2026 Echo complete W/Strain Imaging Echo complete W/Strain Imaging Echocardiography Routine Status post tricuspid valve repair Expected: 04/09/2025, Expires: 04/09/2026 [facility] Work Phone: Comment on above: Expected: 04/09/2025, Expires: Start: 04-03-2025 End: 04-03-2025 Patient encounter procedure 04/03/2025 12:00 PM EDT Office Visit [facility] [address] [place] [address] [phone] Rosaline You, PA [address] [address] [facility] Start: 03-26-2025 End: 03-26-2025 Admission to same day surgery center 03/26/2025 8:00 AM EDT - 03/26/2025 11:00 AM EDT Surgery [facility] Cardiac Cath [address] [place] [phone] Lali Hernandez MD [address] [place], [place] [id number] Structural Heart Procedure [facility] Comment on above: Structural Heart Procedure Start: 03-26-2025 Subsequent hospital visit by physician 03/26/2025 8:00 AM EDT Hospital Encounter [facility] Cardiac Cath [address] [place] [phone] Lali Hernandez MD [address] [place], [place] [phone] Severe tricuspid valve regurgitation [facility] Cardiac Cath Comment on above: Severe tricuspid valve regurgitation Start: 03-26-2025 End: 03-26-2025 Patient encounter procedure 03/26/2025 7:00 AM EDT Appointment [facility] - Echocardiogram [address] [place] [phone] Lali Hernandez MD [address] [place] [address] Ken Olmos MD [address] [place] [address] [facility] Echocardiogram Start: 12-27-2024 End: 12-27-2024 Patient encounter procedure 12/27/2024 9:00 AM EDT Appointment [facility] - CT [address] [place] [phone] Lali Hernandez MD [address] [place] [address] [facility] - CT Start: 12-19-2024 End: 12-19-2025 CTA Heart and Coronary arteries W contrast IV CT cardiac morphology Imaging Routine Severe tricuspid regurgitation Expected: 12/19/2024, Expires: 12/19/2025 [facility] Work Phone: Comment on above: Expected: 12/19/2024, Expires: Start: 12-18-2024 End: 12-18-2024 Patient encounter procedure 12/18/2024 3:30 PM EDT Office Visit [facility] [address] [place] [address] [phone] Lali Hernandez MD [address] [place] [address] [facility] Start: 11-16-2024 End: 11-16-2024 Patient encounter procedure 11/16/2024 10:15 AM EST Office Visit [facility] [address] [place] [phone] Kleber Sandoval MD [address] [place] [address] [facility] Start: 11-16-2024 End: 11-16-2024 Admission to same day surgery center 11/16/2024 9:30 AM EST - 11/16/2024 10:30 AM EST Surgery [facility] - Cardiac Cath [address] [place] [phone] Ryann Washington MD [address] [place] [address] Cardiac Invasive [facility] - Cardiac Cath Comment on above: Cardiac Invasive Start: 11-16-2024 Subsequent hospital visit by physician 11/16/2024 9:30 AM EST Hospital Encounter [facility] - Cardiac Cath [address] [place] [address] Ryann Washington MD [address] [facility] [place] [address] Pulmonary HTN (CMS-HCC); PFO (patent foramen ovale) [facility] Cardiac Cath Comment on above: Pulmonary HTN (CMS-HCC); PFO (patent foramen ovale) Start: 11-14-2024 End: 11-14-2024 Admission to same day surgery center 11/14/2024 11:30 AM EST - 11/14/2024 12:30 PM EST Surgery [facility] Cardiac Cath [address] [place] [address] Ryann Washington MD [address] [facility] [place] [address] Cardiac Invasive [facility] Cardiac Cath Comment on above: Cardiac Invasive Start: 11-14-2024 Subsequent hospital visit by physician 11/14/2024 11:30 AM EST Hospital Encounter [facility] Cardiac Cath [address] [place] [address] Ryann Washington MD [address] [facility] [place] [address] Pulmonary HTN (CMS-HCC); PFO (patent foramen ovale) [facility] Cardiac Cath Comment on above: Pulmonary HTN (CMS-HCC); PFO (patent foramen ovale) Start: 11-07-2024 End: 11-07-2024 Admission to same day surgery center [facility] Cardiac Cath Comment on above: Cardiac Invasive Start: 11-07-2024 Subsequent hospital visit by physician [facility] [facility] Comment on above: Pulmonary HTN (CMS-HCC); PFO (patent foramen ovale) Start: 11-02-2024 End: 11-02-2024 Admission to same day surgery center 11/02/2024 9:30 AM EST - 11/02/2024 10:30 AM EST Surgery [facility] Cardiac Cath [address] [place] [address] Ryann Washington MD [address] [place] [address] Cardiac Invasive [facility] Cardiac Cath Comment on above: Cardiac Invasive Start: 11-02-2024 Subsequent hospital visit by physician 11/02/2024 9:30 AM EST Hospital Encounter [facility] Cardiac Cath [address] [place] [place] [address] Ryann Washington MD [address] [facility] [place] [address] Pulmonary HTN (CMS-HCC); PFO (patent foramen ovale) [facility] Cardiac Cath Comment on above: Pulmonary HTN (CMS-HCC); PFO (patent foramen ovale) Start: 11-02-2024 End: 11-02-2024 Patient encounter procedure 11/02/2024 7:30 AM EST Appointment [facility] - Echocardiogram [address] [place] [address] Kleber Sandoval MD [address] [place] [address] Raymundo Horton MD [address] [facility] [place] [phone] [facility] Echocardiogram Start: 11-01-2024 End: 11-01-2024 Patient encounter procedure 11/01/2024 1:30 PM EST Appointment [facility] [address] [place] [phone] Greg Hernandez PA-C [address] [place] [address] [facility] Start: 11-01-2024 Subsequent hospital visit by physician 11/01/2024 1:30 PM EST Hospital Encounter [facility] [address] [facility] [place] [phone] Greg Hernandez, ELIZABETH [address] [address] [facility] Start: 10-29-2024 End: 10-29-2025 US.doppler Thoracic and Abdominal Aorta and Inferior Vena Cava and Illiac vessels Vas IVC/iliac duplex complete Vascular Ultrasound Routine IVC thrombosis ([facility]-HCC) Expected: 10/29/2024, Expires: 10/29/2025 [employer] Work Phone: Comment on above: Expected: 10/29/2024, Expires: Start: 10-25-2024 End: 10-25-2025 CTA Abdominal veins and Pelvis veins W contrast IV CT venogram abdomen and pelvis Imaging STAT Acute chest pain Pulmonary hypertension ([facility]-HCC) Severe tricuspid regurgitation Shortness of breath PFO (patent foramen ovale) Expected: 10/25/2024, Expires: 10/25/2025 [employer] Work Phone: Comment on above: Expected: 10/25/2024, Expires: Start: 10-16-2024 End: 10-16-2024 Patient encounter procedure 10/16/2024 1:20 PM EST Appointment [facility] - [place] [address] [place] [address] [facility] - [place] Start: 10-04-2024 End: 10-04-2024 Patient encounter procedure 10/04/2024 2:15 PM EST Office Visit [facility] [address] [place] [address] Kleber Sandoval MD [address] [place] [address] [facility] Start: 09-14-2024 End: 09-14-2024 Patient encounter procedure 09/14/2024 3:00 PM EST Office Visit [facility] [phone] Alo Duenas MD [address] [place] [address] [facility] Start: 09-11-2024 End: 09-11-2024 Admission to same day surgery center 09/11/2024 1:30 PM EST - 09/11/2024 2:30 PM EST Surgery [facility] - Cardiac Cath [address] [place] [phone] Whitney Smith MD [address] [place] [address] Cardiac Invasive [facility] Cardiac Cath Comment on above: Cardiac Invasive Start: 09-11-2024 Subsequent hospital visit by physician 09/11/2024 1:30 PM EST Hospital Encounter [facility] - Cardiac Cath [address] [place] [address] Whitney Smith MD [address] [place] [address] Pulmonary HTN (CMS-HCC); PFO (patent foramen ovale) [facility] - Cardiac Cath Comment on above: Pulmonary HTN (CMS-HCC); PFO (patent foramen ovale) Start: 09-11-2024 End: 09-11-2024 Patient encounter procedure 09/11/2024 1:00 PM EST Appointment [facility] - Echocardiogram [address] [place] [address] Kleber Sandoval MD [address] [place] [address] Johnny Ochoa DO [address] [place] [address] [facility] - Echocardiogram Start: 08-30-2024 End: 08-30-2024 Patient encounter procedure 08/30/2024 9:45 AM EST Office Visit [facility] [address] [place] [phone] Kleber Sandoval MD [address] [place] [address] [facility] Start: 2024 Abdominal aortic aneurysm screening Abdominal Aortic Aneurysm (AAA) Screen [facility] Start: 2024 Fall Risk Screening Fall Risk Screening [facility] Start: 05-13-2024 COVID-19 Vaccine ( season) COVID-19 Vaccine ( season) [facility] Start: 05-13-2024 Influenza vaccination Influenza Vaccine [facility] Start: 11-18-2022 Assay of prostate specific antigen total ASSAY OF PSA [facility] Start: 2009 Administration of varicella zoster vaccine Zoster (Shingles) Vaccine (1 of 2) [facility] Start: 1978 DTaP,Tdap and Td Vaccines (1 - Tdap) DTaP,Tdap and Td Vaccines (1 - Tdap) [facility] Start: 1977 Adult BMI Follow Up Plan Adult BMI Follow Up Plan [facility] Start: 1977 Adult BMI Screening Adult BMI Screening [facility] Start: 1971 [facility] Start: 1971 Tobacco Screening [facility]ening [facility] End: 03-20-2026 Albumin [Mass/volume] in Serum or Plasma Albumin Lab Routine Severe tricuspid valve regurgitation 1 Occurrences starting 03/20/2025 until 03/20/2026 [facility] Comment on above: 1 Occurrences starting 03/20/2025 until 03/20/2026 End: 03-20-2026 Basic metabolic 2000 panel - Serum or Plasma Basic Metabolic Panel Lab Routine Severe tricuspid valve regurgitation 1 Occurrences starting 03/20/2025 until 03/20/2026 [facility] Comment on above: 1 Occurrences starting 03/20/2025 until 03/20/2026 End: 03-20-2026 CBC panel - Blood by Automated count CBC Lab Routine Severe tricuspid valve regurgitation 1 Occurrences starting 03/20/2025 until 03/20/2026 [employer] Work Phone: Comment on above: 1 Occurrences starting 03/20/2025 until 03/20/2026 End: 12-19-2025 Creatinine includes GFR, serum Creatinine includes GFR, serum Lab Routine Severe tricuspid regurgitation 1 Occurrences starting 12/19/2024 until 12/19/2025 [facility] Comment on above: 1 Occurrences starting 12/19/2024 until 12/19/2025 End: 03-20-2026 Crossmatch RBC Crossmatch RBC Blood Bank Routine Severe tricuspid valve regurgitation 1 Occurrences starting 03/20/2025 until 03/20/2026 [facility] Comment on above: 1 Occurrences starting 03/20/2025 until 03/20/2026 CTA Abdominal veins and Pelvis veins W contrast IV CT venogram abdomen and pelvis Imaging STAT Acute chest pain Pulmonary hypertension (CMS-HCC) Severe tricuspid regurgitation Shortness of breath PFO (patent foramen ovale) 10/26/2024 10:03 AM EST [facility] End: 03-20-2026 Natriuretic peptide B [Mass/volume] in Blood BNP Lab Routine Severe tricuspid valve regurgitation Shortness of breath 1 Occurrences starting 03/20/2025 until 03/20/2026 [facility] Comment on above: 1 Occurrences starting 03/20/2025 until 03/20/2026 End: 09-26-2025 [facility] - Cardiac Rehab- [facility] - Cardiac Rehab- [place], [place] Card Rehab Routine Severe tricuspid valve regurgitation 1 Occurrences starting 03/26/2025 until 09/26/2025 [facility] Work Phone: Comment on above: 1 Occurrences starting 03/26/2025 until 09/26/2025 End: 03-20-2026 Protime-INR Protime-INR Lab Routine Severe tricuspid valve regurgitation 1 Occurrences starting 03/20/2025 until 03/20/2026 [facility] Comment on above: 1 Occurrences starting 03/20/2025 until 03/20/2026 End: 03-20-2026 Type and screen(includes indirect stephen) Type and screen(includes indirect stephen) Blood Bank Routine Severe tricuspid valve regurgitation 1 Occurrences starting 03/20/2025 until 03/20/2026 [facility] Comment on above: 1 Occurrences starting 03/20/2025 until 03/20/2026 Immunizations Immunization Date Immunization Notes Care Provider [facility] 06-07-2024 Seasonal trivalent influenza vaccine, adjuvanted, preservative free PAU Hernandez MD Work Phone: [facility] 06-07-2024 influenza virus vaccine, unspecified formulation PAU Hernandez MD Work Phone: [facility] 06-21-2023 Influenza, injectabl e, Madin Rosa Canine Kidney, preservative free, quadrivalent PAU Hernandez MD Work Phone: [facility] 07-12-2016 Influenza virus vaccine [facility] 08-21-2015 influenza, injectabl e, madin rosa canine kidney, preservative free PAU Hernandez MD Work Phone: [facility] Payers Date Payer Category Payer Medicare [id number] 2024 Medicare HMO [id number] 2024 Medicare [id number] 2023 Medicare [id number] 2023 Self-pay [id number] 2023 Unknown [id number] 2011 Unknown [facility] [id number] 1959 Unknown [id number] 2.16.840.1.112920.3.579.2.1285 1959 Unknown [id number] 2.16.840.1.115020.3.579.2.1285 1959 Unknown [id number] 2.16.840.1.137967.3.579.2.1285 1959 Unknown [id number] 2.16.840.1.629938.3.579.2.1285 1959 Unknown [id number] 2.16.840.1.810511.3.579.2.1285 1959 Unknown [id number] 2.16.840.1.824136.3.579.2.1285 1959 Unknown [id number] 2.16.840.1.470544.3.579.2.1285 1959 Unknown [id number] 2.16.840.1.627687.3.579.2.128 1959 Unknown [id number] 2.16.840.1.148571.3.579.2.1285 1959 Unknown [id number] 2.16.840.1.779034.3.579.2.1285 1959 Unknown [id number] 2.16.840.1.733306.3.579.2.1286 1959 Unknown [id number] 2.16.840.1.966239.3.579.2.1285 1959 Unknown [id number] 2.16.840.1.533948.3.579.2.1285 1959 Unknown [id number] 2.16.840.1.548571.3.579.2.1285 1959 Unknown [id number] 2.16.8 40.1.444300.3.579.2.71 1959 Unknown [id number] 2.16.8 40.1.205310.3.579.2. 1959 Unknown [id number] 2.16.8 40.1.801322.3.579.2. 1959 Unknown [id number] 2.16.8 40.1.800374.3.579.2. 1959 Unknown [id number] 2.16.8 40.1.929053.3.579.2. 1959 Unknown [id number] 2.16.8 40.1.480219.3.579.2. 1959 Unknown [id number] 2.16.8 40.1.259224.3.579.2. 1959 Unknown [id number] 2.16.8 40.1.579382.3.579.2. 1959 Unknown [id number] 2.16.8 40.1.952319.3.579.2. 1959 Unknown [id number] 2.16.8 40.1.412153.3.579.2. 1959 Unknown [id number] 2.16.840.1.576344.3.579.2.1285 1959 Unknown [id number] 2.16.840.1.509441.3.579.2.1289 Unknown [id number] 2.16.8 40.1.838678.3.579.2.1286 1959 Unknown [id number] 2.16.8 40.1.917665.3.579.2.1286 Unknown HENRY [id number] Unknown [id number] 2.16.8 40.1.758922.3.579.2.531 Unknown [id number] 2.16.8 40.1.089724.3.579.2.462 Unknown [id number] 2.16.8 40.1.225630.3.579.2.462 Social History Date Type Detail Facility Start: 04-22-2020 Tobacco smoking stat [facility] Unknown if ever smoked [facility] Start: 1960 Sex Assigned At Male W [facility] Start: 11-28-2023 End: 10-11-2024 Tobacco smoking status NHIS Smoker (finding) [facility] Start: 08-21-2024 End: 11-16-2024 Tobacco smoking status [facility] Ex-smoker [facility] History of tobacco use Cigarette Smoker P [facility] Start: 08-30-2024 End: 02-18-2025 Alcoholic beverage intake Ex-drinker (finding) [facility] Start: 08-30-2024 End: 03-26-2025 History of Social function [facility] Start: 08-30-2024 End: 03-26-2025 Tobacco use panel [facility] Within the past 12 months we worried whether our food would run out before we got money to buy more. Never True [facility] Start: 1960 Sex assigned at Not on file P [facility] Start: 08-20-2024 End: 10-11-2024 Sex Male (finding) [facility] History of tobacco use Tobacco U se Types Packs/Day Years Used Date Smoking Tobacco: Former Cigarettes Vaping/E-cigarettes [facility] Has the [email or web address], or [employer] threatened to shut off services in your home in past 12Mo No [facility] How often to you hav e a drink containing alcohol? Monthly or less [facility] How many standard drinks containing alcohol do you have on a typical day? 1 or 2 [facility] How often do you hav e 6 or more drinks on 1 occasion? Never [facility] Medical Equipment Procedure Code Equipment Code Equipment Origin al Text Equipment Identifier Dates Valve Mtrl Pasca l Tyrese Repair Implant Use [employer] - [id number] - [id number] Start: 03-26-2025 Functional Status Date Assessment Result Facility 03-26-2025 Total score [AUDIT-C] 1 03/26/20 9:04 PM EDT Greg Handy RN [facility] Clinical Notes 08-30-2024 to 04-02-2025 Plan of Care - Anusha Hernandez RN - 03/27/2025 2:59 PM EDTPlan of Care - Anusha Hernandez RN - 03/27/2025 2:59 PM EDTPlan of Care - Anali Parker RN - 03/26/2025 11:04 PM EDT Note Date & Type Note Facility 04-02-2025 Note Education Materials Dentistry Dental Abscess A dental abscess is an infection around a tooth that may involve pain, swelling, and a collection of pus, as well as other symptoms. Treatment is important to help with symptoms and to prevent the infection from spreading. The general types of dental abscesses are: ? Pulpal abscess. This abscess may form from the inner part of the tooth (pulp). ? Periodontal abscess. This abscess may form from the gum. What are the causes? This condition is caused by a bacterial infection in or around the tooth. It may result from: ? Severe tooth decay (cavities). ? Trauma to the tooth, such as a broken or chipped tooth. What increases the risk? This condition is more likely to develop in males. It is also more likely to develop in people who: ? Have cavities. ? Have severe gum disease. ? Eat sugary snacks between meals. ? Use tobacco products. ? Have diabetes. ? Have a weakened disease-fighting system (immune system). ? Do not brush and care for their teeth regularly. What are the signs or symptoms? Mild symptoms of this condition include: ? Tenderness. ? Bad breath. ? Fever. ? A bitter taste in the mouth. ? Pain in and around the infected tooth. Moderate symptoms of this condition include: ? Swollen neck glands. ? Chills. ? Pus drainage. ? Swelling and redness around the infected tooth, in the mouth, or in the face. ? Severe pain in and around the infected tooth. Severe symptoms of this condition include: ? Difficulty swallowing. ? Difficulty opening the mouth. ? Nausea. ? Vomiting. How is this diagnosed? This condition is diagnosed based on: ? Your symptoms and your medical and dental history. ? An examination of the infected tooth. During the exam, your dental care provider may tap on the infected tooth. You may also need to have X-rays taken of the affected area. How is this treated? This condition is treated by getting rid of the infection. This may be done with: ? Antibiotic medicines. These may be used in certain situations. ? Antibacterial mouth rinse. ? Incision and drainage. This procedure is done by making an incision in the abscess to drain out the pus. Removing pus is the first priority in treating an abscess. ? A root canal. This may be performed to save the tooth. Your dental care provider accesses the visible part of your tooth (crown) with a drill and removes any infected pulp. Then the space is filled and sealed off. ? Tooth extraction. The tooth is pulled out if it cannot be saved by other treatment. You may also receive treatment for pain, such as: ? Acetaminophen or NSAIDs. ? Gels that contain a numbing medicine. ? An injection to block the pain near your nerve. Follow these instructions at home: Medicines ? Take ebot-ylv-tegwbhk and prescription medicines only as told by your dental care provider. ? If you were prescribed an antibiotic, take it as told by your dental care provider. Do not stop taking the antibiotic even if you start to feel better. ? If you were prescribed a gel that contains a numbing medicine, use it exactly as told in the directions. Do not use these gels for children who are younger than 2 years of age. ? Use an antibacterial mouth rinse as told by your dental care provider. General instructions ? Gargle with a mixture of salt and water 3?4 times a day or as needed. To make salt water, completely dissolve ??1 tsp (3?6 g) of salt in 1 cup (237 mL) of warm water. ? Eat a soft diet while your abscess is healing. ? Drink enough fluid to keep your urine pale yellow. ? Do not apply heat to the outside of your mouth. ? Do not use any products that contain nicotine or tobacco. These products include cigarettes, chewing tobacco, and vaping devices, such as e-cigarettes. If you need help quitting, ask your dental care provider. ? Keep all follow-up visits. This is important. How is this prevented? ? Excellent dental home care, which includes brushing your teeth every morning and night with fluoride toothpaste. Floss one time each day. ? Get regularly scheduled dental cleanings. ? Consider having a dental sealant applied on teeth that have deep grooves to prevent cavities. ? Drink fluoridated water regularly. This includes most tap water. Check the label on bottled water to see if it contains fluoride. ? Reduce or eliminate sugary drinks. ? Eat healthy meals and snacks. ? Wear a mouth guard or face shield to protect your teeth while playing sports. Contact a health care provider if: ? Your pain is worse and is not helped by medicine. ? You have swelling. ? You see pus around the tooth. ? You have a fever or chills. Get help right away if: ? Your symptoms suddenly get worse. ? You have a very bad headache. ? You have problems breathing or swallowing. ? You have trouble op (more content not included)... [facility] 03-27-2025 Plan of care note Problem: Pain Goal: Patient goal is pain score less than 4, able to rest, and participant in treatment plan as appropriate Description: INTERVENTIONS: 1. Encourage patient or legal digital media representative to report early pain and ask for pain medicine when needed 2. Assess pain using appropriate pain scale and include the scale used when documenting 3. Administer analgesics based on type and severity of pain and evaluate response within appropriate time frame 4. Implement non-pharmacological measures as appropriate and evaluate response 5. Consider cultural and social influences on pain and pain management 6. Notify LIP if interventions ineffective or patient reports new pain 7. Monitor vital signs including pulse ox, end-tidal CO2 based on pain intervention 8. Reassess pain per policy 9. Teach patient or legal digital media representative interventions for comforting Outcome: Progressing Note: Evaluation of progress towards goal: pt denies pain Problem: Safety Goal: Patient will be injury free during hospitalization Description: INTERVENTIONS: 1. Assess patient's risk for falls and implement fall prevention plan of care per policy 2. Provide and maintain a safe environment 3. Proper use of double Identifiers 4. Medication administration using the 5 rights 5. Hand hygiene 6. Specimens are labeled at the bedside 7. Instruct patient/ patient digital media representative about use of safety devices 8. Include patient/ patient digital media representative in decisions related to safety Outcome: Progressing Note: Evaluation of progress towards goal: pt remains free from injury Problem: Discharge Planning Goal: Discharge to post-acute care, other facility, or home with appropriate resources Description: Patient's goal is: INTERVENTIONS 1. Conduct assessment to determine patient/family and health care team treatment goals, and need for post-acute services based on payer coverage, community resources, and patient preferences, and barriers to discharge 2. Coordinate with Social work, Care Navigation, and Utilization Review to arrange appropriate level of services according to patient's needs based on patient preference and payer coverage in collaboration with the physician and health care team 3. Address psychosocial, clinical, and financial barriers to discharge as identified in assessment in conjunction with the patient/family and health care team 4. Consult appropriate ancillary services (i.e.. PT/OT/ST, etc) as needed 5. Communicate with and update the patient/family, physician, and health care team regarding progress on the discharge plan 6. Identify discharge learning needs (meds, wound care, etc). 7. Arrange for needed discharge transportation as appropriate Outcome: Progressing Note: Evaluation of progress towards goal: discharge planning in place Problem: Moderate - High Risk Fall Score Description: Layne Fall Score of =/> 25 or indicated by [facility] Assessment Goal: Patient should be free from fall Description: Interventions: 1. [place] to environment 2. Hourly rounds addressing the 4 P's (Pain, Positioning, Possessions, Potty) 3. Clear area of hazards (spills, clutter, electrical cords, unnecessary equipment) 4. Place equipment (bed & TV controls, call light, phone, urinal) within reach 5. Encourage patient to wear glasses and hearing aides as appropriate 6. Maintain bed in lowest position 7. Lock wheels on bed/wheelchair 8. Provide adequate lighting, including night light 9. Assess need for additional bedding, food/fluids, pain med's prior to sleep/routinely 10. Provide gripper slippers or personal non-skid footwear 11. Teach patient and patient digital media representative to maintain environment for safety and engage in all aspects of fall prevention program 12. Remind patient to call for help before getting out of bed 13. Initiate bed/chair/exit alarms supportive devices as appropriate, (chair wedge, no-skid floor mat, raised edge mattress, hip protectors) 14. Locate patient bed assignment for optimal visualization 15. Evaluate and identify Safe Patient Handling Equipment needs 16. Provide supervision when out of bed or chair 17. Utilize gait belt as needed to assist with ambulation 18. Place adaptive equipment (cane, walker) within reach 19. Request patient digital media representative bring adaptive equipment/mobility aids from home or obtain and provide as needed 20. Consult pharmacy regarding effects of med's affecting mobility, cognition, and alternatives 21. Obtain physician order for PT if risk factors associated with mobility are present 22. Obtain physician order for OT as appropriate 23. Utilize diversional activities 24. Educate patient and patient digital media representative how to maintain a safe environment during visitation times (notify nurse prior to leaving bedside) 25. Consider appropriateness of medical or non-manager medical writing 26. Set up voiding schedule as appropriate (every 2 hours) Outcome: Progressing Note: Evaluation of progress towards goal: pt remains free from falls Problem: Cardiovascular - Adult Goal: Maintains optimal cardiac output and hemodynamic stability Description: Patient's goal is: INTERVENTIONS: 1. Monitor vital signs, rhythm, and trends 2. Monitor for bleeding, hypotension and signs of decreased cardiac output 3. Administer ordered vasoactive medications to optimize hemodynamic stability 4. Monitor arterial and/or venous puncture sites for bleeding and/or hematoma 5. Assess quality of pulses, skin color and temperature Outcome: Progressing Note: Evaluation of progress towards goal: pt hemodynamically stable [facility] 03-27-2025 Miscellaneous Notes Problem: Pain Goal: Patient goal is pain score less than 4, able to rest, and participant in treatment plan as appropriate Description: INTERVENTIONS: 1. Encourage patient or legal digital media representative to report early pain and ask for pain medicine when needed 2. Assess pain using appropriate pain scale and include the scale used when documenting 3. Administer analgesics based on type and severity of pain and evaluate response within appropriate time frame 4. Implement non-pharmacological measures as appropriate and evaluate response 5. Consider cultural and social influences on pain and pain management 6. Notify LIP if interventions ineffective or patient reports new pain 7. Monitor vital signs including pulse ox, end-tidal CO2 based on pain intervention 8. Reassess pain per policy 9. Teach patient or legal digital media representative interventions for comforting Outcome: Progressing Note: Evaluation of progress towards goal: pt denies pain Problem: Safety Goal: Patient will be injury free during hospitalization Description: INTERVENTIONS: 1. Assess patient's risk for falls and implement fall prevention plan of care per policy 2. Provide and maintain a safe environment 3. Proper use of double Identifiers 4. Medication administration using the 5 rights 5. Hand hygiene 6. Specimens are labeled at the bedside 7. Instruct patient/ patient digital media representative about use of safety devices 8. Include patient/ patient digital media representative in decisions related to safety Outcome: Progressing Note: Evaluation of progress towards goal: pt remains free from injury Problem: Discharge Planning Goal: Discharge to post-acute care, other facility, or home with appropriate resources Description: Patient's goal is: INTERVENTIONS 1. Conduct assessment to determine patient/family and health care team treatment goals, and need for post-acute services based on payer coverage, community resources, and patient preferences, and barriers to discharge 2. Coordinate with Social work, Care Navigation, and Utilization Review to arrange appropriate level of services according to patient's needs based on patient preference and payer coverage in collaboration with the physician and health care team 3. Address psychosocial, clinical, and financial barriers to discharge as identified in assessment in conjunction with the patient/family and health care team 4. Consult appropriate ancillary services (i.e.. PT/OT/ST, etc) as needed 5. Communicate with and update the patient/family, physician, and health care team regarding progress on the discharge plan 6. Identify discharge learning needs (meds, wound care, etc). 7. Arrange for needed discharge transportation as appropriate Outcome: Progressing Note: Evaluation of progress towards goal: discharge planning in place Problem: Moderate - High Risk Fall Score Description: Layne Fall Score of =/> 25 or indicated by [facility] Assessment Goal: Patient should be free from fall Description: Interventions: 1. [place] to environment 2. Hourly rounds addressing the 4 P's (Pain, Positioning, Possessions, Potty) 3. Clear area of hazards (spills, clutter, electrical cords, unnecessary equipment) 4. Place equipment (bed & TV controls, call light, phone, urinal) within reach 5. Encourage patient to wear glasses and hearing aides as appropriate 6. Maintain bed in lowest position 7. Lock wheels on bed/wheelchair 8. Provide adequate lighting, including night light 9. Assess need for additional bedding, food/fluids, pain med's prior to sleep/routinely 10. Provide gripper slippers or personal non-skid footwear 11. Teach patient and patient digital media representative to maintain environment for safety and engage in all aspects of fall prevention program 12. Remind patient to call for help before getting out of bed 13. Initiate bed/chair/exit alarms supportive devices as appropriate, (chair wedge, no-skid floor mat, raised edge mattress, hip protectors) 14. Locate patient bed assignment for optimal visualization 15. Evaluate and identify Safe Patient Handling Equipment needs 16. Provide supervision when out of bed or chair 17. Utilize gait belt as needed to assist with ambulation 18. Place adaptive equipment (cane, walker) within reach 19. Request patient digital media representative bring adaptive equipment/mobility aids from home or obtain and provide as needed 20. Consult pharmacy regarding effects of med's affecting mobility, cognition, and alternatives 21. Obtain physician order for PT if risk factors associated with mobility are present 22. Obtain physician order for OT as appropriate 23. Utilize diversional activities 24. Educate patient and patient digital media representative how to maintain a safe environment during visitation times (notify nurse prior to leaving bedside) 25. Consider appropriateness of medical or non-manager medical writing 26. Set up voiding schedule as appropriate (every 2 hours) Outcome: Progressing Note: Evaluation of progress towards goal: pt remains free from falls Problem: Cardiovascular - Adult Goal: Maintains optimal cardiac output and hemodynamic stability Description: Patient's goal is: INTERVENTIONS: 1. Monitor vital signs, rhythm, and trends 2. Monitor for bleeding, hypotension and signs of decreased cardiac output 3. Administer ordered vasoactive medications to optimize hemodynamic stability 4. Monitor arterial and/or venous puncture sites for bleeding and/or hematoma 5. Assess quality of pulses, skin color and temperature Outcome: Progressing Note: Evaluation of progress towards goal: pt hemodynamically stable Problem: Pain Goal: Patient goal is pain score less than 4, able to rest, and participant in treatment plan as appropriate Description: INTERVENTIONS: 1. Encourage patient or legal digital media representative to report early pain and ask for pain medicine when needed 2. Assess pain using appropriate pain scale and include the scale used when documenting 3. Administer analgesics based on type and severity of pain and evaluate response within appropriate time frame 4. Implement non-pharmacological measures as appropriate and evaluate response 5. Consider cultural and social influences on pain and pain management 6. Notify LIP if interventions ineffective or patient reports new pain 7. Monitor vital signs including pulse ox, end-tidal CO2 based on pain intervention 8. Reassess pain per policy 9. Teach patient or legal digital media representative interventions for comforting Outcome: Progressing Note: Evaluation of progress towards goal: Discussed with the patient about means of using pharmacologic and nonpharmacologic methods to manage pain. Education was completed and hourly rounding is in place. Patient has no further questions at time. Problem: Safety Goal: Patient will be injury free during hospitalization Description: INTERVENTIONS: 1. Assess patient's risk for falls and implement fall prevention plan of care per policy 2. Provide and maintain a safe environment 3. Proper use of double Identifiers 4. Medication administration using the 5 rights 5. Hand hygiene 6. Specimens are labeled at the bedside 7. Instruct patient/ patient digital media representative about use of safety devices 8. Include patient/ patient digital media representative in decisions related to safety Outcome: Progressing Note: Evaluation of progress towards goal: Patient is free of injury. Will continue to implement fall precautions, five medication administration rights and hand hygiene. Problem: Infection Goal: Absence of infection during hospitalization Description: INTERVENTIONS 1. Assess and monitor for signs and symptoms of infection. 2. Monitor lab/diagnostic results. 3. Monitor all insertion sites i.e., indwelling lines, tubes and drains. 4. Monitor endotracheal (as able) and nasal secretions for changes in amount and color. 5. Administer medications as ordered. 6. Instruct and encourage patient and family to use good hand hygiene technique. 7. Identify and instruct patient/patient digital media representative in use of appropriate isolation precautions for identified infection/symptoms. 8. Provide and discuss with patient/patient digital media representative on educational MDRO sheet. 9. Encourage and monitor nutritional status daily and consult audiovisual aids technician if indicated. 10. Implement neutropenic guidelines as needed. Outcome: Progressing Note: Evaluation of progress towards goal: Patient is receiving iv antibioitcs. Will continue to monitor vitals, WBC count, and perform hand hygiene Problem: Knowledge Deficit Goal: Patient/patient digital media representative demonstrates understanding of disease process, treatment plan, medications, and discharge instructions Description: INTERVENTIONS 1. Complete learning assessment and assess knowledge base 2. Provide teaching at level of understanding 3. Provide teaching via preferred learning method(s) Outcome: Progressing Note: Evaluation of progress towards goal: Plan of care and medications discussed with patient. Patient verbalizes their understanding and acceptance Problem: Moderate - High Risk Fall Score Description: Layne Fall Score of =/> 25 or indicated by [facility] Assessment Goal: Patient should be free from fall Description: Interventions: 1. [place] to environment 2. Hourly rounds addressing the 4 P's (Pain, Positioning, Possessions, Potty) 3. Clear area of hazards (spills, clutter, electrical cords, unnecessary equipment) 4. Place equipment (bed & TV controls, call light, phone, urinal) within reach 5. Encourage patient to wear glasses and hearing aides as appropriate 6. Maintain bed in lowest position 7. Lock wheels on bed/wheelchair 8. Provide adequate lighting, including night light 9. Assess need for additional bedding, food/fluids, pain med's prior to sleep/routinely 10. Provide gripper slippers or personal non-skid footwear 11. Teach patient and patient digital media representative to maintain environment for safety and engage in all aspects of fall prevention program 12. Remind patient to call for help before getting out of bed 13. Initiate bed/chair/exit alarms supportive devices as appropriate, (chair wedge, no-skid floor mat, raised edge mattress, hip protectors) 14. Locate patient bed assignment for optimal visualization 15. Evaluate and identify Safe Patient Handling Equipment needs 16. Provide supervision when out of bed or chair 17. Utilize gait belt as needed to assist with ambulation 18. Place adaptive equipment (cane, walker) within reach 19. Request patient digital media representative bring adaptive equipment/mobility aids from home or obtain and provide as needed 20. Consult pharmacy regarding effects of med's affecting mobility, cognition, and alternatives 21. Obtain physician order for PT if risk factors associated with mobility are present 22. Obtain physician order for OT as appropriate 23. Utilize diversional activities 24. Educate patient and patient digital media representative how to maintain a safe environment during visitation times (notify nurse prior to leaving bedside) 25. Consider appropriateness of medical or non-manager medical writing 26. Set up voiding schedule as appropriate (every 2 hours) Outcome: Progressing Note: Evaluation of progress towards goal: Patient is free from falls. Bed in lowest position and locked, non-slip footwear, patient understands how to use the call light and personal items are within reach. Problem: Cardiovascular - Adult Goal: Maintains optimal cardiac output and hemodynamic stability Description: Patient's goal is: INTERVENTIONS: 1. Monitor vital signs, rhythm, and trends 2. Monitor for bleeding, hypotension and signs of decreased cardiac output 3. Administer ordered vasoactive medications to optimize hemodynamic stability 4. Monitor arterial and/or venous puncture sites for bleeding and/or hematoma 5. Assess quality of pulses, skin color and temperature Outcome: Progressing Note: Evaluation of progress towards goal: Monitor vital signs, rhythm, trend. Monitor for bleeding, hypotension and for signs of decreased cardiac output Goal: Absence of cardiac dysrhythmias or at baseline Description: INTERVENTIONS: 1. Continuous cardiac monitoring, monitor vital signs, obtain 12 lead EKG as ordered 2. Monitor for therapeutic effect/ side effects and safely 3. Administer antiarrhythmic and heart rate control medications as ordered 3. Initiate emergency measures for life threatening arrhythmias 4. Monitor labs and administer replacement/adjust therapy as ordered Outcome: Progressing Note: Evaluation of progress towards goal: Continuous telemetry, vital signs Q4hr and as needed, obtain 12 lead EKG as ordered and as needed. Summary: Orders Clarified Per ANNETTE Almodovar, sutures remain in until 03/27/2025 at 0800. Also, patient OK to sit up with sutures in place after initial bedrest. Radiology advised that patient can sit up at 1550. Procedure: Tricuspid Cruzito , right heart catheterization Indication: Severe symptomatic tricuspid valve regurgitation with severe prolapse/flail of the anterior leaflet. The patient was seen in the structural heart Clinic, multidisciplinary structural heart team recommended intervention of the tricuspid valve, informed consent was obtained, the patient was prepped and draped in a sterile fashion and preoperative antibiotics were administered Operators: Dr. Hernandez and Dr. Farah ECHO: Both SILVESTRE and intracardiac ultrasound Access: 22 Latvian right common femoral vein closed with [id number], 10 Latvian left common femoral vein closed with a [id number] The delivery catheter was placed in the right atrium, the Cruzito device was carefully maneuvered. The prolapse segment was the anterior leaflet and with a single device we grasped the anterior and septal leaflets reducing the tricuspid regurgitation from torrential down to trivial to mild. The patient is hemodynamics also improved, the right atrial pressure had been 20 and it came down to 6. The delivery catheter was removed and was closed with a [id number] suture. The 10 Latvian left common femoral vein site was closed with a [id number] suture. Impression: 1. Successful tricuspid Cruzito for severe degenerative tricuspid valve regurgitation with a reduction of tricuspid regurgitation from torrential down to [id number] Recommendations: 1. Postprocedure care Dr. Hernandez documented in this encounter [facility] 03-27-2025 Hospital course Narrative Images from the original note were not included. [facility] [address] [place] [address] DISCHARGE SUMMARY Farshad Junior Primary Document Control Specialist: JULIO CÉSAR PCP: Smith Cooney Admission Date: 03/26/2025 Discharge Date: 03/27/2025 Reason for Admission: Principal Problem: Severe tricuspid valve regurgitation 1. Severe symptomatic nonrheumatic tricuspid regurgitation status post TV CRUZITO 03/26/25 -reduction in TR from severe to mild-mod 2. Acute on chronic HFpEF, right heart failure -RA pressure reduced from 20 mmHg to 6 mmHg with TV CRUZITO alone 3. Very severe COPD -known FEV1 0.83 (21% predicted) and DLCO 8.88 (29% predicted) July 2024; follows with pulm out of [facility] 4. 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 Chronic non-occlusive pulmonary artery thrombus on [facility] SUMMARY 64 year old male who underwent elective TV CRUZITO for management of severe non-rheumatic TR. TR was reduced from severe to mild-moderate. No complication. Monitored overnight and remained stable. Pt reported improvement in overall energy and breathing on POD1. Follow up TTE noted stable clip position. Patient deemed suitable for discharge home on 03/27/25. Routine follow-up in clinic arranged. PHYSICAL EXAM BP 94/61 Pulse 50 Temp 36.4 C (97.6 F) (Oral) Resp 16 Ht 188 cm (6' 2) Wt 59 kg (130 lb) SpO2 96% BMI 16.69 kg/m Admit Weight Weight: 59 kg (130 lb) Last 3 Weight Readings 03/26/25 0655 Weight: 59 kg (130 lb) General appearance: Awake, alert, cooperative Neck: no adenopathy, no carotid bruit, no JVD, supple, symmetrical, trachea midline, and thyroid: not enlarged, symmetric, no tenderness/mass/nodules Lungs: diminished but otherwise clear and unlabored Heart:: regular rate and rhythm, S1, S2 normal, no murmur, click, rub or gallop Abdomen: Soft, non-tender, bowel sounds normal, no masses, no organomegaly Extremities: extremities normal, atraumatic, no cyanosis or edema, right and left groin sites soft and non-tender without hematoma, ecchymsois or bruit PROCEDURES [facility] Course: ECHO: Echo complete W/O contrast Result Date: 03/27/2025 Left Ventricle: Left ventricle appears normal in size. Systolic function is hyperdynamic with an ejection fraction over 70%. Right Ventricle: Right ventricular size is mildly dilated. Systolic function is normal. Right Atrium: Right atrium is mildly dilated. Tricuspid Valve: There is mild to moderate regurgitation, best seen in the short axis inflow views. RVSP calculated at 50 mmHg. RVSP is based on RA pressure of 8 mmHg. There is a triclip on the septal and anterior tricuspid valve leaflets. Tricuspid Valve: There is moderate pulmonary hypertension. Echo SILVESTRE for STRUCTURAL HEART with 3D recon Result Date: 03/27/2025 Transesophageal echocardiogram for tricuspid CRUZITO with a Joshua device. Massive tricuspid regurgitation at baseline with anterior leaflet flail. Single clip placed with reduction of tricuspid regurgitation to mild. Clip placed along septal and anterior leaflets. Trace tricuspid regurgitation appreciable by limited transthoracic pictures at the end of the procedure. Mildly elevated pulmonary pressures by RVSP. Echo SILVESTRE W/3D Recon Independant Wkst Result Date: 11/02/2024 Left Ventricle: Left ventricle appears normal in size. Systolic function is normal with an ejection fraction of 55-60%. Right Ventricle: Right ventricular size is moderately dilated. Systolic function is mildly reduced. Left Atrium: Left atrium is normal in size. The left atrial appendage is normal. Color Doppler reveals evidence of a PFO (R to L shunt). QpQs is 0.4. Right Atrium: Right atrium is severely dilated. Tricuspid Valve: There is severe regurgitation. LABORATORY CBC: Results from last 7 days Lab Units 03/27/25 0526 03/26/25 2354 03/22/25 1110 WBC x10E9/L 6.6 -- 5.8 HEMOGLOBIN g/dL 16.1 15.8 19.4* HEMATOCRIT % 48.7 47.0 58.4* MCV fL 100 -- 99 PLATELETS X10E9/L 163 -- 196 BMP: Results from last 7 days Lab Units 03/27/25 0526 03/22/25 1110 SODIUM mmol/L 141 140 POTASSIUM mmol/L 4.1 5.0 CHLORIDE mmol/L 101 99 CO2 mmol/L 32 30 BUN mg/dL 42* 31* CREATININE mg/dL 0.81 0.97 CALCIUM mg/dL 8.7 10.2 PT/INR: Results from last 7 days Lab Units 03/22/25 1110 PROTIME sec 12.5 INR 1.1 APTT: MAG: D Dimer: Troponin I ProBNP Results from last 7 days Lab Units 03/22/25 1110 BNP pg/mL 81 Lipid Panel: No results found for: CHOL, TRIG, HDL, CHOLHDLR Liver Panel: No results found for: TBIL, ALB HgA1C: No results found for: HGBA1C DISCHARGE INSTRUCTIONS Discharge to: Home Activity: No heavy lifting. Diet: low sodium Medications: Medication List ASK your doctor about these medications Instructions Last Dose Given Next Dose Due albuterol 90 mcg/actuation inhaler Commonly known as: PROVENTIL HFA;VENTOLIN HFA Inhale 2 puffs every 4 (four) hours as needed. aspirin 81 mg Take 1 tablet (81 mg total) by mouth in the morning. HYDROcodone-acetaminophen 10-325 mg per tablet Commonly known as: NORCO Take 1 tablet by mouth every 8 (eight) hours as needed for pain. TRELEGY ELLIPTA 100-62.5-25 mcg blister with device Generic drug: epbiazyriau-fdezpkulc-tqvzbirx Inhale 1 puff in the morning. XARELTO 20 mg tablet tablet Generic drug: rivaroxaban Take 1 tablet (20 mg total) by mouth in the morning. ZETIA 10 mg tablet Generic drug: ezetimibe Take 1 tablet (10 mg total) by mouth in the morning. [facility]up [facility] 1 [facility] TTE in 30 days Cardiac rehab referral [facility] Consulting Providers: Consulting Providers Not on file This note was completed using a voice batch mixer operator system. Every effort was made to ensure accuracy. However, inadvertent computerized batch mixer operator errors may be present. ANNETTE Costa 03/27/25 1419' I, Lali Hernandez MD, personally performed the face to face diagnostic evaluation on this patient. I have reviewed the JESS's History, Exam, and MDM and agree with the assessment and plan as written. Echo reviewed and device looks good and marked reduction in degree of mitral regurgitation Can follow up in structural heart office Dr. Hernandez documented in this encounter [facility] [employer] 03-26-2025 Plan of care note Problem: Pain Goal: Patient goal is pain score less than 4, able to rest, and participant in treatment plan as appropriate Description: INTERVENTIONS: 1. Encourage patient or legal digital media representative to report early pain and ask for pain medicine when needed 2. Assess pain using appropriate pain scale and include the scale used when documenting 3. Administer analgesics based on type and severity of pain and evaluate response within appropriate time frame 4. Implement non-pharmacological measures as appropriate and evaluate response 5. Consider cultural and social influences on pain and pain management 6. Notify LIP if interventions ineffective or patient reports new pain 7. Monitor vital signs including pulse ox, end-tidal CO2 based on pain intervention 8. Reassess pain per policy 9. Teach patient or legal digital media representative interventions for comforting Outcome: Progressing Note: Evaluation of progress towards goal: Discussed with the patient about means of using pharmacologic and nonpharmacologic methods to manage pain. Education was completed and hourly rounding is in place. Patient has no further questions at time. Problem: Safety Goal: Patient will be injury free during hospitalization Description: INTERVENTIONS: 1. Assess patient's risk for falls and implement fall prevention plan of care per policy 2. Provide and maintain a safe environment 3. Proper use of double Identifiers 4. Medication administration using the 5 rights 5. Hand hygiene 6. Specimens are labeled at the bedside 7. Instruct patient/ patient digital media representative about use of safety devices 8. Include patient/ patient digital media representative in decisions related to safety Outcome: Progressing Note: Evaluation of progress towards goal: Patient is free of injury. Will continue to implement fall precautions, five medication administration rights and hand hygiene. Problem: Infection Goal: Absence of infection during hospitalization Description: INTERVENTIONS 1. Assess and monitor for signs and symptoms of infection. 2. Monitor lab/diagnostic results. 3. Monitor all insertion sites i.e., indwelling lines, tubes and drains. 4. Monitor endotracheal (as able) and nasal secretions for changes in amount and color. 5. Administer medications as ordered. 6. Instruct and encourage patient and family to use good hand hygiene technique. 7. Identify and instruct patient/patient digital media representative in use of appropriate isolation precautions for identified infection/symptoms. 8. Provide and discuss with patient/patient digital media representative on educational MDRO sheet. 9. Encourage and monitor nutritional status daily and consult audiovisual aids technician if indicated. 10. Implement neutropenic guidelines as needed. Outcome: Progressing Note: Evaluation of progress towards goal: Patient is receiving iv antibioitcs. Will continue to monitor vitals, WBC count, and perform hand hygiene Problem: Knowledge Deficit Goal: Patient/patient digital media representative demonstrates understanding of disease process, treatment plan, medications, and discharge instructions Description: INTERVENTIONS 1. Complete learning assessment and assess knowledge base 2. Provide teaching at level of understanding 3. Provide teaching via preferred learning method(s) Outcome: Progressing Note: Evaluation of progress towards goal: Plan of care and medications discussed with patient. Patient verbalizes their understanding and acceptance Problem: Moderate - High Risk Fall Score Description: Layne Fall Score of =/> 25 or indicated by [facility] Assessment Goal: Patient should be free from fall Description: Interventions: 1. [place] to environment 2. Hourly rounds addressing the 4 P's (Pain, Positioning, Possessions, Potty) 3. Clear area of hazards (spills, clutter, electrical cords, unnecessary equipment) 4. Place equipment (bed & TV controls, call light, phone, urinal) within reach 5. Encourage patient to wear glasses and hearing aides as appropriate 6. Maintain bed in lowest position 7. Lock wheels on bed/wheelchair 8. Provide adequate lighting, including night light 9. Assess need for additional bedding, food/fluids, pain med's prior to sleep/routinely 10. Provide gripper slippers or personal non-skid footwear 11. Teach patient and patient digital media representative to maintain environment for safety and engage in all aspects of fall prevention program 12. Remind patient to call for help before getting out of bed 13. Initiate bed/chair/exit alarms supportive devices as appropriate, (chair wedge, no-skid floor mat, raised edge mattress, hip protectors) 14. Locate patient bed assignment for optimal visualization 15. Evaluate and identify Safe Patient Handling Equipment needs 16. Provide supervision when out of bed or chair 17. Utilize gait belt as needed to assist with ambulation 18. Place adaptive equipment (cane, walker) within reach 19. Request patient digital media representative bring adaptive equipment/mobility aids from home or obtain and provide as needed 20. Consult pharmacy regarding effects of med's affecting mobility, cognition, and alternatives 21. Obtain physician order for PT if risk factors associated with mobility are present 22. Obtain physician order for OT as appropriate 23. Utilize diversional activities 24. Educate patient and patient digital media representative how to maintain a safe environment during visitation times (notify nurse prior to leaving bedside) 25. Consider appropriateness of medical or non-manager medical writing 26. Set up voiding schedule as appropriate (every 2 hours) Outcome: Progressing Note: Evaluation of progress towards goal: Patient is free from falls. Bed in lowest position and locked, non-slip footwear, patient understands how to use the call light and personal items are within reach. Problem: Cardiovascular - Adult Goal: Maintains optimal cardiac output and hemodynamic stability Description: Patient's goal is: INTERVENTIONS: 1. Monitor vital signs, rhythm, and trends 2. Monitor for bleeding, hypotension and signs of decreased cardiac output 3. Administer ordered vasoactive medications to optimize hemodynamic stability 4. Monitor arterial and/or venous puncture sites for bleeding and/or hematoma 5. Assess quality of pulses, skin color and temperature Outcome: Progressing Note: Evaluation of progress towards goal: Monitor vital signs, rhythm, trend. Monitor for bleeding, hypotension and for signs of decreased cardiac output Goal: Absence of cardiac dysrhythmias or at baseline Description: INTERVENTIONS: 1. Continuous cardiac monitoring, monitor vital signs, obtain 12 lead EKG as ordered 2. Monitor for therapeutic effect/ side effects and safely 3. Administer antiarrhythmic and heart rate control medications as ordered 3. Initiate emergency measures for life threatening arrhythmias 4. Monitor labs and administer replacement/adjust therapy as ordered Outcome: Progressing Note: Evaluation of progress towards goal: Continuous telemetry, vital signs Q4hr and as needed, obtain 12 lead EKG as ordered and as needed. [facility] 03-26-2025 Nurse Note Summary: Orders Cl arified Per ANNETTE Almodovar, sutures remain in until 03/27/2025 at 0800. Also, patient OK to sit up with sutures in place after initial bedrest. Radiology advised that patient can sit up at 1550. [facility] 03-26-2025 Procedure note Procedure: Tricuspid Cruzito , right heart catheterization Indication: Severe symptomatic tricuspid valve regurgitation with severe prolapse/flail of the anterior leaflet. The patient was seen in the structural heart Clinic, multidisciplinary structural heart team recommended intervention of the tricuspid valve, informed consent was obtained, the patient was prepped and draped in a sterile fashion and preoperative antibiotics were administered Operators: Dr. Hernandez and Dr. Farah ECHO: Both SILVESTRE and intracardiac ultrasound Access: 22 [place]vian right common femoral vein closed with ubzdek-fb-qpedv, 10 Latvian left common femoral vein closed with a xllmsh-cz-iobvh The delivery catheter was placed in the right atrium, the Cruzito device was carefully maneuvered. The prolapse segment was the anterior leaflet and with a single device we grasped the anterior and septal leaflets reducing the tricuspid regurgitation from torrential down to trivial to mild. The patient is hemodynamics also improved, the right atrial pressure had been 20 and it came down to 6. The delivery catheter was removed and was closed with a fkmtwa-an-eepyq suture. The 10 Latvian left common femoral vein site was closed with a qpbyhm-aj-hdpwa suture. Impression: 1. Successful tricuspid Cruzito for severe degenerative tricuspid valve regurgitation with a reduction of tricuspid regurgitation from torrential down to wisu-to-bequipth Recommendations: 1. Postprocedure care Dr. Hernandez [facility] 03-26-2025 History and physical note [facility] Farshad Junior Date of visit: 03/26/2025 Date of : 1960 Age: 64 y.o. Chief Complaint Patient presents with Follow-up TV eval - discuss next steps, PKR + CTS, sched w/patient Cardiac Valve Problem History of Present Illness Farshad Junior is a pleasant 64 y/o man with severe primary tricuspid regurgitation and tricuspid valve prolapse. The patient has shortness of breath which is likely due to his severe COPD but also some component secondary to his regurgitation We reviewed his images at our structural heart meeting and we will proceed with a tricuspid valve intervention. He does have an IVC thrombus as well and vascular does not feel that this would be prohibitive for any type of intervention on his tricuspid valve We will bridge him with Lovenox when we do his procedure and hold his Xarelto In addition, we likely will consider sq furosemide a few days prior to his procedure to optimize his volume status in reduced the coaptation gap We discussed risks benefits alternatives of tricuspid valve Cruzito and he is agreeable to proceeding His diagnoses are 1. Severe primary tricuspid valve disease 2. History of very severe COPD with an FEV1 of 0.83 which is 21% of predicted, DLCO that is 29% of predicted 3. 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 Mild coronary disease, no mlsx-ec-dzcog shunt 5. RA pressure of 10, RV pressure of 37/11 , PA pressure of 38/20, LVEDP, 13 6. Right bundle-branch block on EKG We reviewed his case at our multidisciplinary structural heart meeting and everyone agreered on proceeding with intervention on his tricuspid valve Current Medications Current Outpatient Medications Medication Sig Dispense Refill albuterol (PROVENTIL HFA;VENTOLIN HFA) 90 mcg/actuation inhaler Inhale 2 puffs every 4 (four) hours as needed. aspirin 81 mg Take 1 tablet (81 mg total) by mouth in the morning. owruxfsebxe-amlcnlhzr-ifgxzvhs (TRELEGY ELLIPTA) 100-62.5-25 mcg blister with device Inhale 1 puff in the morning. HYDROcodone-acetaminophen (NORCO) 10-325 mg per tablet Take 1 tablet by mouth every 8 (eight) hours as needed for pain. rivaroxaban (XARELTO) 20 mg tablet tablet Take 1 tablet (20 mg total) by mouth in the morning. ZETIA 10 mg tablet Take 1 tablet (10 mg total) by mouth in the morning. No current facility-administered medications for this visit. Allergies Allergies Allergen Reactions Crestor [Rosuvastatin] Muscle pain Problem List Patient Active Problem List Diagnosis Shortness of breath Abnormal echocardiogram Pulmonary hypertension ([facility]) PFO (patent foramen ovale) Pulmonary HTN ([facility]) Severe tricuspid regurgitation Severe tricuspid valve regurgitation Medical History Past Medical History: Diagnosis Date Cervical spondylosis Chronic pain COPD (chronic obstructive pulmonary disease) ([facility]) Emphysema lung ([facility]) Family history of prostate cancer Kidney infection Lumbar disc herniation with radiculopathy Lumbar spinal stenosis Lumbar spondylosis Peripheral arterial disease Varicose veins of right lower extremity Vertigo Surgical History Past Surgical History: Procedure Laterality Date APPENDECTOMY Cardiac Invasive N/A 11/16/2024 Performed by Ryann Washington MD at [facility] Coronary angiogram and right heart and left ventricular gram/pressure + shunt run N/A 11/16/2024 Performed by Ryann Washington MD at [facility] Vascular Invasive- IVUS/Venogram N/A 11/16/2024 Performed by Ryann Washington MD at [facility] History - Family Family History Problem Relation Age of Onset Alcohol abuse Father Prostate cancer Father Arthritis Brother Social History Socioeconomic History Marital status: Spouse name: Not on file Number of children: Not on file Years of education: Not on file Highest education level: Not on file Occupational History Not on file Tobacco Use Smoking status: Former Types: Cigarettes, Vaping/E-cigarettes Smokeless tobacco: Not on file Vaping Use Vaping status: Every Day Substances: Nicotine Substance and Sexual Activity Alcohol use: Not Currently Drug use: Never Sexual activity: Defer Other Topics Concern Caffeine Use Yes Social History Narrative Not on file Social Drivers of Health Financial Resource Strain: Not on file Food Insecurity: No Food Insecurity (08/30/2024) Hunger Screening Food Insecurity - Worry: Never True Food Insecurity - Inability: Never True Transportation Needs: Not on file Physical Activity: Not on file Stress: Not on file Social Connections: Not on file Interpersonal Safety: Not on file Housing Instability: Not on file Current Medications Current Outpatient Medications Medication Sig Dispense Refill albuterol (PROVENTIL HFA;VENTOLIN HFA) 90 mcg/actuation inhaler Inhale 2 puffs every 4 (four) hours as needed. aspirin 81 mg Take 1 tablet (81 mg total) by mouth in the morning. lbkplrazrgt-ejsicwqyv-jrcrexmu (TRELEGY ELLIPTA) 100-62.5-25 mcg blister with device Inhale 1 puff in the morning. HYDROcodone-acetaminophen (NORCO) 10-325 mg per tablet Take 1 tablet by mouth every 8 (eight) hours as needed for pain. rivaroxaban (XARELTO) 20 mg tablet tablet Take 1 tablet (20 mg total) by mouth in the morning. ZETIA 10 mg tablet Take 1 tablet (10 mg total) by mouth in the morning. No current facility-administered medications for this visit. Review of Systems Review of Systems Constitutional: Positive for malaise/fatigue. HENT: Negative for nosebleeds. Eyes: Negative for blurred vision and double vision. Cardiovascular: Negative for leg swelling. Respiratory: Positive for shortness of breath. Negative for cough and wheezing. Hematologic/Lymphatic: Does not bruise/bleed easily. Skin: Negative for rash. Musculoskeletal: Negative for joint pain, joint swelling, muscle cramps and muscle weakness. Gastrointestinal: Negative for abdominal pain, heartburn, nausea and vomiting. Genitourinary: Negative for hematuria. Neurological: Negative for dizziness, headaches, light-headedness and weakness. Psychiatric/Behavioral: Negative for depression. The patient is not nervous/anxious. CARDIOVASCULAR: Please review HPI. Physical Examination BP 96/70 Pulse 70 Ht 188 cm (6' 2.02) Wt 61.2 kg (135 lb) BMI 17.33 kg/m CONSTITUTIONAL: cooperative, alert and oriented, well developed, well nourished, in no acute distress SKIN: warm and dry to touch HEAD:normocephalic, no tenderness EYES:conjuctivae and lids unremarkable, funduscopic exam and visual whittington not performed, EOMS intact NECK: no JVD CHEST: clear to auscultation and percussion, normal A-P diameter, no use of accessory muscles CARDIAC: regular rhythm, S1, S2, 2/6 Murmur noted ABDOMEN: abdomen soft, bowel sounds normoactive, no masses, non-tender, no bruits PERIPHERAL PULSES: pulses full and equal in all extremities, no bruits auscultated EXTREMITIES and BACK: no cyanosis present, no clubbing present, no edema present PSYCHIATRIC: appropriate mood, memory and judgement NEUROLOGICAL: no gross motor or sensory deficits noted Cardiac Testing LAST ECHO (Within 2 Years) Echo SILVESTRE W/3D Recon Independant Wkst Result Date: 11/02/2024 Left Ventricle: Left ventricle appears normal in size. Systolic function is normal with an ejection fraction of 55-60%. Right Ventricle: Right ventricular size is moderately dilated. Systolic function is mildly reduced. Left Atrium: Left atrium is normal in size. The left atrial appendage is normal. Color Doppler reveals evidence of a PFO (R to L shunt). QpQs is 0.4. Right Atrium: Right atrium is severely dilated. Tricuspid Valve: There is severe regurgitation. LAST STRESS (Within 2 Years) No results found. EKG: No results found. CATH: No results found. (Within 2 Years) LAST LABS: CBC: No results found for: WBC, HGB, HCT, MCV, PLT BMP: Lab Results Component Value Date CREATININE 0.87 12/24/2024 PT/INR: @INR3@ Lipids: No results found for: CHOL No results found for: HDL No results found for: LDLCALC No results found for: TRIG No results found for: CHOLHDL Changes Made Orders Placed or Reconciled This Encounter Medications aspirin 81 mg Sig: Take 1 tablet (81 mg total) by mouth in the morning. There are no discontinued medications. IMPRESSIONS/PLAN Plan Encounter Diagnosis Name Primary? Severe tricuspid valve regurgitation Yes We discussed risks benefits alternatives of proceeding with potential tricuspid valve intervention. There is minimal over sizing for transcatheter tricuspid valve replacement, and I think his anatomy would be amenable to tricuspid valve Cruzito so we will proceed with a tricuspid valve Cruzito. If we get a suboptimal result then we can always take out the device and consider replacement down the road. We will bridge him with Lovenox while he is off the Xarelto We will treat him with subcutaneous furosemide for 3 days prior to the procedure to optimize his volume status and decrease his coaptation gap Thank you again for the kind referral TODAYS ORDERS No orders of the defined types were placed in this encounter. FOLLOW UP No follow-ups on file. PCP: Smith Cooney Referring Physician: Smith Cooney No address on file [facility] 03-26-2025 History and physical note [facility] F[facility] Date of visit: 03/26/2025 Date of : 1960 Age: 64 y.o. Chief Complaint Patient presents with Follow-up TV eval - discuss next steps, PKR + CTS, sched w/patient Cardiac Valve Problem History of Present Illness Farshad Junior is a pleasant 64 y/o man with severe primary tricuspid regurgitation and tricuspid valve prolapse. The patient has shortness of breath which is likely due to his severe COPD but also some component secondary to his regurgitation We reviewed his images at our structural heart meeting and we will proceed with a tricuspid valve intervention. He does have an IVC thrombus as well and vascular does not feel that this would be prohibitive for any type of intervention on his tricuspid valve We will bridge him with Lovenox when we do his procedure and hold his Xarelto In addition, we likely will consider sq furosemide a few days prior to his procedure to optimize his volume status in reduced the coaptation gap We discussed risks benefits alternatives of tricuspid valve Cruzito and he is agreeable to proceeding His diagnoses are 1. Severe primary tricuspid valve disease 2. History of very severe COPD with an FEV1 of 0.83 which is 21% of predicted, DLCO that is 29% of predicted 3. 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 Mild coronary disease, no vvyb-bm-bptsc shunt 5. RA pressure of 10, RV pressure of 37/11 , PA pressure of 38/20, LVEDP, 13 6. Right bundle-branch block on EKG We reviewed his case at our multidisciplinary structural heart meeting and everyone agreered on proceeding with intervention on his tricuspid valve Current Medications Current Outpatient Medications Medication Sig Dispense Refill albuterol (PROVENTIL HFA;VENTOLIN HFA) 90 mcg/actuation inhaler Inhale 2 puffs every 4 (four) hours as needed. aspirin 81 mg Take 1 tablet (81 mg total) by mouth in the morning. hgjsiewmcbt-tbxuiytqh-owedtgje (TRELEGY ELLIPTA) 100-62.5-25 mcg blister with device Inhale 1 puff in the morning. HYDROcodone-acetaminophen (NORCO) 10-325 mg per tablet Take 1 tablet by mouth every 8 (eight) hours as needed for pain. rivaroxaban (XARELTO) 20 mg tablet tablet Take 1 tablet (20 mg total) by mouth in the morning. ZETIA 10 mg tablet Take 1 tablet (10 mg total) by mouth in the morning. No current facility-administered medications for this visit. Allergies Allergies Allergen Reactions Crestor [Rosuvastatin] Muscle pain Problem List Patient Active Problem List Diagnosis Shortness of breath Abnormal echocardiogram Pulmonary hypertension ([facility]) PFO (patent foramen ovale) Pulmonary HTN ([facility]) Severe tricuspid regurgitation Severe tricuspid valve regurgitation Medical History Past Medical History: Diagnosis Date Cervical spondylosis Chronic pain COPD (chronic obstructive pulmonary disease) ([facility]) Emphysema lung ([facility]) Family history of prostate cancer Kidney infection Lumbar disc herniation with radiculopathy Lumbar spinal stenosis Lumbar spondylosis Peripheral arterial disease Varicose veins of right lower extremity Vertigo Surgical History Past Surgical History: Procedure Laterality Date APPENDECTOMY Cardiac Invasive N/A 11/16/2024 Performed by Ryann Washington MD at [facility] Coronary angiogram and right heart and left ventricular gram/pressure + shunt run N/A 11/16/2024 Performed by Ryann Washington MD at [facility] Vascular Invasive- IVUS/Venogram N/A 11/16/2024 Performed by Ryann Washington MD at [facility] History - Family Family History Problem Relation Age of Onset Alcohol abuse Father Prostate cancer Father Arthritis Brother Social History Socioeconomic History Marital status: Spouse name: Not on file Number of children: Not on file Years of education: Not on file Highest education level: Not on file Occupational History Not on file Tobacco Use Smoking status: Former Types: Cigarettes, Vaping/E-cigarettes Smokeless tobacco: Not on file Vaping Use Vaping status: Every Day Substances: Nicotine Substance and Sexual Activity Alcohol use: Not Currently Drug use: Never Sexual activity: Defer Other Topics Concern Caffeine Use Yes Social History Narrative Not on file Social Drivers of Health Financial Resource Strain: Not on file Food Insecurity: No Food Insecurity (08/30/2024) Hunger Screening Food Insecurity - Worry: Never True Food Insecurity - Inability: Never True Transportation Needs: Not on file Physical Activity: Not on file Stress: Not on file Social Connections: Not on file Interpersonal Safety: Not on file Housing Instability: Not on file Current Medications Current Outpatient Medications Medication Sig Dispense Refill albuterol (PROVENTIL HFA;VENTOLIN HFA) 90 mcg/actuation inhaler Inhale 2 puffs every 4 (four) hours as needed. aspirin 81 mg Take 1 tablet (81 mg total) by mouth in the morning. rvpbvwdxepg-umylpfvai-smseoaoi (TRELEGY ELLIPTA) 100-62.5-25 mcg blister with device Inhale 1 puff in the morning. HYDROcodone-acetaminophen (NORCO) 10-325 mg per tablet Take 1 tablet by mouth every 8 (eight) hours as needed for pain. rivaroxaban (XARELTO) 20 mg tablet tablet Take 1 tablet (20 mg total) by mouth in the morning. ZETIA 10 mg tablet Take 1 tablet (10 mg total) by mouth in the morning. No current facility-administered medications for this visit. Review of Systems Review of Systems Constitutional: Positive for malaise/fatigue. HENT: Negative for nosebleeds. Eyes: Negative for blurred vision and double vision. Cardiovascular: Negative for leg swelling. Respiratory: Positive for shortness of breath. Negative for cough and wheezing. Hematologic/Lymphatic: Does not bruise/bleed easily. Skin: Negative for rash. Musculoskeletal: Negative for joint pain, joint swelling, muscle cramps and muscle weakness. Gastrointestinal: Negative for abdominal pain, heartburn, nausea and vomiting. Genitourinary: Negative for hematuria. Neurological: Negative for dizziness, headaches, light-headedness and weakness. Psychiatric/Behavioral: Negative for depression. The patient is not nervous/anxious. CARDIOVASCULAR: Please review HPI. Physical Examination BP 96/70 Pulse 70 Ht 188 cm (6' 2.02) Wt 61.2 kg (135 lb) BMI 17.33 kg/m CONSTITUTIONAL: cooperative, alert and oriented, well developed, well nourished, in no acute distress SKIN: warm and dry to touch HEAD:normocephalic, no tenderness EYES:conjuctivae and lids unremarkable, funduscopic exam and visual whittington not performed, EOMS intact NECK: no JVD CHEST: clear to auscultation and percussion, normal A-P diameter, no use of accessory muscles CARDIAC: regular rhythm, S1, S2, 2/6 Murmur noted ABDOMEN: abdomen soft, bowel sounds normoactive, no masses, non-tender, no bruits PERIPHERAL PULSES: pulses full and equal in all extremities, no bruits auscultated EXTREMITIES and BACK: no cyanosis present, no clubbing present, no edema present PSYCHIATRIC: appropriate mood, memory and judgement NEUROLOGICAL: no gross motor or sensory deficits noted Cardiac Testing LAST ECHO (Within 2 Years) Echo SILVESTRE W/3D Recon Independant Wkst Result Date: 11/02/2024 Left Ventricle: Left ventricle appears normal in size. Systolic function is normal with an ejection fraction of 55-60%. Right Ventricle: Right ventricular size is moderately dilated. Systolic function is mildly reduced. Left Atrium: Left atrium is normal in size. The left atrial appendage is normal. Color Doppler reveals evidence of a PFO (R to L shunt). QpQs is 0.4. Right Atrium: Right atrium is severely dilated. Tricuspid Valve: There is severe regurgitation. LAST STRESS (Within 2 Years) No results found. EKG: No results found. CATH: No results found. (Within 2 Years) LAST LABS: CBC: No results found for: WBC, HGB, HCT, MCV, PLT BMP: Lab Results Component Value Date CREATININE 0.87 12/24/2024 PT/INR: @INR3@ Lipids: No results found for: CHOL No results found for: HDL No results found for: LDLCALC No results found for: TRIG No results found for: CHOLHDL Changes Made Orders Placed or Reconciled This Encounter Medications aspirin 81 mg Sig: Take 1 tablet (81 mg total) by mouth in the morning. There are no discontinued medications. IMPRESSIONS/PLAN Plan Encounter Diagnosis Name Primary? Severe tricuspid valve regurgitation Yes We discussed risks benefits alternatives of proceeding with potential tricuspid valve intervention. There is minimal over sizing for transcatheter tricuspid valve replacement, and I think his anatomy would be amenable to tricuspid valve Cruzito so we will proceed with a tricuspid valve Cruzito. If we get a suboptimal result then we can always take out the device and consider replacement down the road. We will bridge him with Lovenox while he is off the Xarelto We will treat him with subcutaneous furosemide for 3 days prior to the procedure to optimize his volume status and decrease his coaptation gap Thank you again for the kind referral TODAYS ORDERS No orders of the defined types were placed in this encounter. FOLLOW UP No follow-ups on file. PCP: Smith Cooney Referring Physician: Smith Cooney No address on file documented in this encounter [facility] 03-25-2025 Miscellaneous Notes Pt called in to [facility] stating over the weekend both Tuesday and Tuesday 30 min after taking his first 2 doses of Fruosix he passed out. He states this am his BP was 87/73 and then started going back up after he drank some water it was then 98/77. He states the Furosix was dehydrating him and once he drank some water/gatorade he felt better. Discussed with PKR in the office and he states to inform pt to not take the third dose and to not over hydrate. Called and spoke to pt with pkr recommendations and pt v/u. [facility]-25-[facility]25 Telephone encounter Note Pt called in to [facility] stating over the weekend both Tuesday and Tuesday 30 min after taking his first 2 doses of Fruosix he passed out. He states this am his BP was 87/73 and then started going back up after he drank some water it was then 98/77. He states the Furosix was dehydrating him and once he drank some water/gatorade he felt better. Discussed with PKR in the office and he states to inform pt to not take the third dose and to not over hydrate. Called and spoke to pt with pkr recommendations and pt v/u. [facility] History of Presen t illness Narrative Per PKR, patient needs to self-administer Furoscix 3 days prior to procedure. Samples provided for patient and recorded in sample log. documented [facility] this [facility] Miscellaneous Notes ----- Message from [employer] sent at 03/14/2025 9:22 AM EDT ----- Please send Lovenox to pts local pharamcy. Bridging for TV CRUZITO per PKR. documented [facility] this [facility]25 Telephone encounter Note ----- Message from [employer] sent at 03/14/2025 9:22 AM EDT ----- Please send Lovenox to pts local pharamcy. Bridging for TV CRUZITO per PKR. [facility]25 Miscellaneous Notes Patient has been evaluated in [facility] for TR. Per PKR, plan to proceed with TV CRUZITO. Given patient has Medicare Advantage plan, need prior auth before procedure can be scheduled. Letter of medical necessity and clinical documents faxed to [employer] [facility] to assist with submitting request to insurance [employer] for prior auth. Received notification that fax was sent successfully to [phone] documented in this encounter [facility] 03-01-2025 Telephone encounter Note Patient has been evaluated in [facility] for TR. Per PKR, plan to proceed with TV CRUZITO. Given patient has Medicare Advantage plan, need prior auth before procedure can be scheduled. Letter of medical necessity and clinical documents faxed to [employer] [facility] to assist with submitting request to insurance company for prior auth. Received notification that fax was sent successfully to [phone] [facility] 02-18-2025 History of Presen t illness Narrative Images from the original note were not included. CARDIAC SURGERY OUTPATIENT CONSULT Date of Consultation: 02/18/2025 PCP: Smith Cooney Chief Complaint: shortness of breath History of Present Illiness Farshad Junior is a 64 y.o. male who presents with shortness of breath. He does have a history of COPD with poor PFTs. Likely a component of his COPD is related to his lungs. He would prefer to avoid open heart surgery. He does not complain of chest pain, syncope, or significant leg swelling. Past Medical History Past Medical History: Diagnosis Date Cervical spondylosis Chronic pain COPD (chronic obstructive pulmonary disease) ([facility]) Emphysema lung ([facility]) Family history of prostate cancer Kidney infection Lumbar disc herniation with radiculopathy Lumbar spinal stenosis Lumbar spondylosis Peripheral arterial disease Varicose veins of right lower extremity Vertigo Surgical History has a past surgical history that includes Appendectomy; Invasive Cardiology Procedure (N/A, 11/16/2024); and Cardiac catheterization (N/A, 11/16/2024). Allergies Allergies Allergen Reactions Crestor [Rosuvastatin] Muscle pain Home Meds Prior to Admission medications Medication Sig Start Date End Date Taking? Authorizing Provider albuterol (PROVENTIL HFA;VENTOLIN HFA) 90 mcg/actuation inhaler Inhale 2 puffs every 4 (four) hours as needed. 07/25/24 Not In System Ref Prov eskojylguul-fwfbedxcr-yneueddx (TRELEGY ELLIPTA) 100-62.5-25 mcg blister with device Inhale 1 puff once daily. Not In System Ref Prov HYDROcodone-acetaminophen (NORCO) 10-325 mg per tablet Take 1 tablet by mouth every 8 (eight) hours as needed for pain. 08/02/24 Not In System Ref Prov rivaroxaban (XARELTO) 20 mg tablet tablet Take 1 tablet (20 mg total) by mouth in the morning. 11/17/24 Celestino Mcdonald, AGRICULTURAL LOAN OFFICER-SECURITIES UNDERWRITER ZETIA 10 mg tablet Take 1 tablet (10 mg total) by mouth in the morning. 08/06/24 Not In System Ref Prov Social History Social History Socioeconomic History Marital status: Spouse name: Not on file Number of children: Not on file Years of education: Not on file Highest education level: Not on file Occupational History Not on file Tobacco Use Smoking status: Former Types: Cigarettes, Vaping/E-cigarettes Smokeless tobacco: Not on file Vaping Use Vaping status: Every Day Substances: Nicotine Substance and Sexual Activity Alcohol use: Not Currently Drug use: Never Sexual activity: Defer Other Topics Concern Caffeine Use Yes Social History Narrative Not on file Social Drivers of Health Financial Resource Strain: Not on file Food Insecurity: No Food Insecurity (08/30/2024) Hunger Screening Food Insecurity - Worry: Never True Food Insecurity - Inability: Never True Transportation Needs: Not on file Physical Activity: Not on file Stress: Not on file Social Connections: Not on file Interpersonal Safety: Not on file Housing Instability: Not on file Family History Family History Problem Relation Age of Onset Alcohol abuse Father Prostate cancer Father Arthritis Brother Review of Systems Review of Systems Constitutional: Positive for malaise/fatigue. HENT: Negative for nosebleeds. Eyes: Negative for blurred vision and double vision. Cardiovascular: Negative for leg swelling. Respiratory: Positive for shortness of breath. Negative for cough and wheezing. Hematologic/Lymphatic: Does not bruise/bleed easily. Skin: Negative for rash. Musculoskeletal: Negative for joint pain, joint swelling, muscle cramps and muscle weakness. Gastrointestinal: Negative for abdominal pain, heartburn, nausea and vomiting. Genitourinary: Negative for hematuria. Neurological: Negative for dizziness, headaches, light-headedness and weakness. Psychiatric/Behavioral: Negative for depression. The patient is not nervous/anxious. Physical Examination Vital Signs: BP 96/70 Pulse 70 Ht 188 cm (6' 2.02) Wt 61.2 kg (135 lb) BMI 17.33 kg/m General appearance: Very thin appearing male in no acute distress, alert oriented x3,is acyanotic. HEENT: dentures. No obvious neck mass Lungs: Clear bilaterally Heart: Regular rate and rhythm with systolic murmur, radial and femoral pulses present bilaterally. There is no jugular distention or carotid bruits. Abdomen: very thin soft, nontender. Extremities: Full range of motion throughout. Neurologic: No focal deficits Previous Test Results Cardiac Cath: No CAD. RA 10, PA 38/20, PVR 3.3 Echo: EF 55-60%, Severe TR from a prolapsed leaflet EKG: sinus rhythm CT Chest: no major aortic abnormality, evidence of COPD Labs None recent Assessment Farshad Junior is an 64 y.o. male who presents today for management of severe primary TR Plan Plan for tricuspid CRUZITO. He would prefer to avoid open heart surgery. He would be at very high risk for pulmonary complications post operatively documented in this encounter [facility] 02-18-2025 History of Presen t illness Narrative Images from the original note were not included. [facility] Farshad Junior Date of visit: 02/18/2025 Date of : 1960 Age: 64 y.o. Chief Complaint Patient presents with Follow-up TV eval - discuss next steps, PKR + CTS, sched w/patient Cardiac Valve Problem History of Present Illness Farshad Junior is a pleasant 64 y/o man with severe primary tricuspid regurgitation and tricuspid valve prolapse. The patient has shortness of breath which is likely due to his severe COPD but also some component secondary to his regurgitation We reviewed his images at our structural heart meeting and we will proceed with a tricuspid valve intervention. He does have an IVC thrombus as well and vascular does not feel that this would be prohibitive for any type of intervention on his tricuspid valve We will bridge him with Lovenox when we do his procedure and hold his Xarelto In addition, we likely will consider sq furosemide a few days prior to his procedure to optimize his volume status in reduced the coaptation gap We discussed risks benefits alternatives of tricuspid valve Cruzito and he is agreeable to proceeding His diagnoses are 1. Severe primary tricuspid valve disease 2. History of very severe COPD with an FEV1 of 0.83 which is 21% of predicted, DLCO that is 29% of predicted 3. 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 Mild coronary disease, no rucs-hx-tlcbm shunt 5. RA pressure of 10, RV pressure of 37/11 , PA pressure of 38/20, LVEDP, 13 6. Right bundle-branch block on EKG We reviewed his case at our multidisciplinary structural heart meeting and everyone agreered on proceeding with intervention on his tricuspid valve Current Outpatient Medications Medication Sig Dispense Refill albuterol (PROVENTIL HFA;VENTOLIN HFA) 90 mcg/actuation inhaler Inhale 2 puffs every 4 (four) hours as needed. aspirin 81 mg Take 1 tablet (81 mg total) by mouth in the morning. pvzykuufqpi-samvkmmbw-lopxmnls (TRELEGY ELLIPTA) 100-62.5-25 mcg blister with device Inhale 1 puff in the morning. HYDROcodone-acetaminophen (NORCO) 10-325 mg per tablet Take 1 tablet by mouth every 8 (eight) hours as needed for pain. rivaroxaban (XARELTO) 20 mg tablet tablet Take 1 tablet (20 mg total) by mouth in the morning. ZETIA 10 mg tablet Take 1 tablet (10 mg total) by mouth in the morning. No current facility-administered medications for this visit. Allergies Allergen Reactions Crestor [Rosuvastatin] Muscle pain Patient Active Problem List Diagnosis Shortness of breath Abnormal echocardiogram Pulmonary hypertension ([facility]) PFO (patent foramen ovale) Pulmonary HTN ([facility]) Severe tricuspid regurgitation Severe tricuspid valve regurgitation Past Medical History: Diagnosis Date Cervical spondylosis Chronic pain COPD (chronic obstructive pulmonary disease) ([facility]) Emphysema lung ([facility]) Family history of prostate cancer Kidney infection Lumbar disc herniation with radiculopathy Lumbar spinal stenosis Lumbar spondylosis Peripheral arterial disease Varicose veins of right lower extremity Vertigo Past Surgical History: Procedure Laterality Date APPENDECTOMY Cardiac Invasive N/A 11/16/2024 Performed by Ryann Washington MD at [facility] CARDIAC CATH LABS Coronary angiogram and right heart and left ventricular gram/pressure + shunt run N/A 11/16/2024 Performed by Ryann Washington MD at [facility] CARDIAC CATH LABS Vascular Invasive- IVUS/Venogram N/A 11/16/2024 Performed by Ryann Washington MD at [facility] CARDIAC CATH LABS Family History Problem Relation Age of Onset Alcohol abuse Father Prostate cancer Father Arthritis Brother Social History Socioeconomic History Marital status: Spouse name: Not on file Number of children: Not on file Years of education: Not on file Highest education level: Not on file Occupational History Not on file Tobacco Use Smoking status: Former Types: Cigarettes, Vaping/E-cigarettes Smokeless tobacco: Not on file Vaping Use Vaping status: Every Day Substances: Nicotine Substance and Sexual Activity Alcohol use: Not Currently Drug use: Never Sexual activity: Defer Other Topics Concern Caffeine Use Yes Social History Narrative Not on file Social Drivers of Health Financial Resource Strain: Not on file Food Insecurity: No Food Insecurity (08/30/2024) Hunger Screening Food Insecurity - Worry: Never True Food Insecurity - Inability: Never True Transportation Needs: Not on file Physical Activity: Not on file Stress: Not on file Social Connections: Not on file Interpersonal Safety: Not on file Housing Instability: Not on file Current Outpatient Medications Medication Sig Dispense Refill albuterol (PROVENTIL HFA;VENTOLIN HFA) 90 mcg/actuation inhaler Inhale 2 puffs every 4 (four) hours as needed. aspirin 81 mg Take 1 tablet (81 mg total) by mouth in the morning. alovzpsqttb-etczzcpyu-wpqtgkti (TRELEGY ELLIPTA) 100-62.5-25 mcg blister with device Inhale 1 puff in the morning. HYDROcodone-acetaminophen (NORCO) 10-325 mg per tablet Take 1 tablet by mouth every 8 (eight) hours as needed for pain. rivaroxaban (XARELTO) 20 mg tablet tablet Take 1 tablet (20 mg total) by mouth in the morning. ZETIA 10 mg tablet Take 1 tablet (10 mg total) by mouth in the morning. No current facility-administered medications for this visit. Review of Systems Review of Systems Constitutional: Positive for malaise/fatigue. HENT: Negative for nosebleeds. Eyes: Negative for blurred vision and double vision. Cardiovascular: Negative for leg swelling. Respiratory: Positive for shortness of breath. Negative for cough and wheezing. Hematologic/Lymphatic: Does not bruise/bleed easily. Skin: Negative for rash. Musculoskeletal: Negative for joint pain, joint swelling, muscle cramps and muscle weakness. Gastrointestinal: Negative for abdominal pain, heartburn, nausea and vomiting. Genitourinary: Negative for hematuria. Neurological: Negative for dizziness, headaches, light-headedness and weakness. Psychiatric/Behavioral: Negative for depression. The patient is not nervous/anxious. CARDIOVASCULAR: Please review HPI. Physical Examination BP 96/70 Pulse 70 Ht 188 cm (6' 2.02) Wt 61.2 kg (135 lb) BMI 17.33 kg/m CONSTITUTIONAL: cooperative, alert and oriented, well developed, well nourished, in no acute distress SKIN: warm and dry to touch HEAD:normocephalic, no tenderness EYES:conjuctivae and lids unremarkable, funduscopic exam and visual whittington not performed, EOMS intact NECK: no JVD CHEST: clear to auscultation and percussion, normal A-P diameter, no use of accessory muscles CARDIAC: regular rhythm, S1, S2, 2/6 Murmur noted ABDOMEN: abdomen soft, bowel sounds normoactive, no masses, non-tender, no bruits PERIPHERAL PULSES: pulses full and equal in all extremities, no bruits auscultated EXTREMITIES and BACK: no cyanosis present, no clubbing present, no edema present PSYCHIATRIC: appropriate mood, memory and judgement NEUROLOGICAL: no gross motor or sensory deficits noted Cardiac Testing LAST ECHO (Within 2 Years) Echo SILVESTRE W/3D Recon Independant Wkst Result Date: 11/02/2024 Left Ventricle: Left ventricle appears normal in size. Systolic function is normal with an ejection fraction of 55-60%. Right Ventricle: Right ventricular size is moderately dilated. Systolic function is mildly reduced. Left Atrium: Left atrium is normal in size. The left atrial appendage is normal. Color Doppler reveals evidence of a PFO (R to L shunt). QpQs is 0.4. Right Atrium: Right atrium is severely dilated. Tricuspid Valve: There is severe regurgitation. LAST STRESS (Within 2 Years) No results found. EKG: No results found. CATH: No results found. (Within 2 Years) LAST LABS: CBC: No results found for: WBC, HGB, HCT, MCV, PLT BMP: Lab Results Component Value Date CREATININE 0.87 12/24/2024 PT/INR: @INR3@ Lipids: No results found for: CHOL No results found for: HDL No results found for: LDLCALC No results found for: TRIG No results found for: CHOLHDL Changes Made Orders Placed or Reconciled This Encounter Medications aspirin 81 mg Sig: Take 1 tablet (81 mg total) by mouth in the morning. There are no discontinued medications. IMPRESSIONS/PLAN Encounter Diagnosis Name Primary? Severe tricuspid valve regurgitation Yes We discussed risks benefits alternatives of proceeding with potential tricuspid valve intervention. There is minimal over sizing for transcatheter tricuspid valve replacement, and I think his anatomy would be amenable to tricuspid valve Cruzito so we will proceed with a tricuspid valve Cruzito. If we get a suboptimal result then we can always take out the device and consider replacement down the road. We will bridge him with Lovenox while he is off the Xarelto We will treat him with subcutaneous furosemide for 3 days prior to the procedure to optimize his volume status and decrease his coaptation gap Thank you again for the kind referral TODAYS ORDERS No orders of the defined types were placed in this encounter. FOLLOW UP No follow-ups on file. PCP: Smith Cooney Referring Physician: Smith Cooney No address on file documented in this encounter [facility] 12-19-2024 History of Presen t illness Narrative Placed order for [facility] CT. documented in this encounter [facility] 12-18-2024 History of Presen t illness Narrative Farshad Hay Sandi Date of visit: 12/18/2024 Date of : 1960 Age: 64 y.o. [facility] heart clinic Patient Active Problem List Diagnosis Shortness of breath Abnormal echocardiogram Pulmonary hypertension ([facility]) PFO (patent foramen ovale) Pulmonary HTN ([facility]) Severe tricuspid regurgitation Severe tricuspid valve regurgitation Allergies Allergen Reactions Crestor [Rosuvastatin] Muscle pain Current Outpatient Medications Medication Sig Dispense Refill albuterol (PROVENTIL HFA;VENTOLIN HFA) 90 mcg/actuation inhaler Inhale 2 puffs every 4 (four) hours as needed. rcmztaypzdt-ljzprzayr-kwzelxkz (TRELEGY ELLIPTA) 100-62.5-25 mcg blister with device Inhale 1 puff once daily. HYDROcodone-acetaminophen (NORCO) 10-325 mg per tablet Take 1 tablet by mouth every 8 (eight) hours as needed for pain. rivaroxaban (XARELTO) 20 mg tablet tablet Take 1 tablet (20 mg total) by mouth in the morning. ZETIA 10 mg tablet Take 1 tablet (10 mg total) by mouth in the morning. No current facility-administered medications for this visit. Chief Complaint Patient presents with Follow-up OV W PKR TO DISCUSS NEXT STEPS-APPT SCHED W PT Cardiac Valve Problem Medication Problem Stopped taking Metoprolol, experienced dizzy, feeling of passing out, nausea. Day after stopping felt much better. History of Present Illness Farshad Junior is a pleasant 64-year-old gentleman with severe COPD who has primary tricuspid valve disease with severe tricuspid valve regurgitation with prolapse of his tricuspid valve leaflet The patient has shortness of breath The patient had heart catheterization done. Amount of layered thrombus in his IVC on intravascular ultrasound. He had mild coronary disease. There was no evidence of ptap-aj-dgimi shunting Right heart catheterization/shunt run Right atrial pressure 10 mm Hg Right ventricle 37/11 mm Hg Pulmonary artery pressure 38/20 mm Hg with a mean of 26mmhg Pulmonary artery saturation 65% Aortic saturation 96% PVR 3.3 ESPINOZA His PFTs which were done in June 2024 showed severe obstructive defect with an FEV1 of 21%. Severe diffusion impairment at 29%. His chest CTA showed emphysema and a chronic nonocclusive thrombus adherent to the pulmonary arterial wall He has been on anticoagulation with Xarelto He quit smoking but he is now vaping We reviewed his case at our structural heart meeting and the team's consensus was to consider a percutaneous approach to his tricuspid valve disease We will consider either tricuspid valve Cruzito versus percutaneous tricuspid valve replacement We will get the CTA to assess his tricuspid valve as well His diagnoses are 1. Severe primary tricuspid valve disease 2. Severe COPD 3. Nonobstructive coronary disease 4. No evidence of shunt on right heart catheterization 5. Nonocclusive IVC 6. Pulmonary cachexia 7. Right bundle-branch block on EKG Past Medical History: Diagnosis Date Cervical spondylosis Chronic pain COPD (chronic obstructive pulmonary disease) ([facility]) Emphysema lung ([facility]) Family history of prostate cancer Kidney infection Lumbar disc herniation with radiculopathy Lumbar spinal stenosis Lumbar spondylosis Peripheral arterial disease Varicose veins of right lower extremity Vertigo No data recorded No data recorded No data recorded Past Surgical History: Procedure Laterality Date APPENDECTOMY Cardiac Invasive N/A 11/16/2024 Performed by Ryann Washington MD at [facility] CARDIAC CATH LABS Coronary angiogram and right heart and left ventricular gram/pressure + shunt run N/A 11/16/2024 Performed by Ryann Washington MD at [facility] CARDIAC CATH LABS Vascular Invasive- IVUS/Venogram N/A 11/16/2024 Performed by Ryann Washington MD at [facility] CARDIAC CATH LABS Family History Problem Relation Age of Onset Alcohol abuse Father Prostate cancer Father Arthritis Brother Social History Socioeconomic History Marital status: Spouse name: Not on file Number of children: Not on file Years of education: Not on file Highest education level: Not on file Occupational History Not on file Tobacco Use Smoking status: Former Types: Cigarettes, Vaping/E-cigarettes Smokeless tobacco: Not on file Vaping Use Vaping status: Every Day Substances: Nicotine Substance and Sexual Activity Alcohol use: Not Currently Drug use: Never Sexual activity: Defer Other Topics Concern Caffeine Use Yes Social History Narrative Not on file Social Drivers of Health Financial Resource Strain: Not on file Food Insecurity: No Food Insecurity (08/30/2024) Hunger Screening Food Insecurity - Worry: Never True Food Insecurity - Inability: Never True Transportation Needs: Not on file Physical Activity: Not on file Stress: Not on file Social Connections: Not on file Interpersonal Safety: Not on file Housing Instability: Not on file Review of Systems Review of Systems Constitutional: Negative for malaise/fatigue. HENT: Negative for nosebleeds. Eyes: Negative for blurred vision and double vision. Cardiovascular: Negative for leg swelling. Respiratory: Positive for shortness of breath. Negative for cough and wheezing. Hematologic/Lymphatic: Bruises/bleeds easily. Musculoskeletal: Negative for joint pain, joint swelling, muscle cramps and muscle weakness. Gastrointestinal: Negative for abdominal pain, heartburn, nausea and vomiting. Genitourinary: Negative for hematuria. Neurological: Positive for dizziness. Negative for headaches, light-headedness and weakness. Psychiatric/Behavioral: Negative for depression. The patient is not nervous/anxious. Vascular: Negative for claudication and lower extremity wounds or ulcers. CARDIOVASCULAR: Please review HPI. Physical Examination General appearance: Alert, oriented and cooperative. In no acute distress. Skin: Warm and dry to touch. Head: Normocephalic, without obvious abnormality, atraumatic. Ears, Nose, Mouth, Throat: Throat clear without erythema or exudate. Dentition intact. Eyes: Conjunctivae unremarkable, EOM intact. Neck: No JVD, No carotid bruit. Neck supple, trachea midline. Respiratory: Clear to auscultation bilaterally, no use of accessory muscles. Cardiovascular: RRR with normal S1 and S2 with 2/6 systolic murmurs. Gastrointestinal: Soft, non-tender. Bowel sounds normal. Musculoskeletal: No peripheral edema. Neurologic: Oriented to time, person and place, affect appropriate. No focal/major motor defects noted. Psychiatric: Appropriate mood, memory and judgement. VITAL SIGNS: BP 106/78 Pulse 76 Ht 188 cm (6' 2.02) Wt 62.1 kg (137 lb) SpO2 96% BMI 17.58 kg/m No orders of the defined types were placed in this encounter. Medications Discontinued During This Encounter Medication Reason metoprolol tartrate (LOPRESSOR) 50 mg tablet IMPRESSIONS/PLAN 1. Severe tricuspid regurgitation - POCT EKG 2. Shortness of breath 3. Severe tricuspid valve regurgitation We will get the CTA to assess his tricuspid valve We will consider either tricuspid valve Cruzito versus tricuspid valve replacement with an evoque valve I will also try to reach out to his exercise equipment specialist to discuss his pulmonary status TODAYS ORDERS Orders Placed This Encounter Procedures POCT EKG FOLLOW UP No follow-ups on file. PCP: Smith Cooney Referring Physician: Smith Cooney No address on file documented in this encounter [facility] 12-03-2024 Miscellaneous Notes LMOM to schedule appt with PKR. documented in this encounter [facility] 12-03-2024 Telephone encounter Note LMOM to schedule appt with PKR. [facility] 03-24-2025 Miscellaneous Notes Spoke with Shana from Dr. Beckwith's pulmonology office requesting office visit notes. Shana will send from visit Oct 11, 2024. Upcoming visit in January. [facility] Telephone encounter Note Spoke with Shana from Dr. Beckwith's pulmonology office requesting office visit notes. Shana will send from visit Oct 11, 2024. Upcoming visit in January. [facility] History of Presen t illness Narrative Images from the original note were not included. Patient Name: Farshad Junior : 1960 Multi-disciplinary Case Review Mr. Junior was reviewed at the multidisciplinary structural heart case review on 11/28/2024 In Attendance were ANGEL LUIS Hernandez MD, Emanuel Washington MD, Ophelia Duenas MD, Madhavi Olmos MD, Madhavi Raza MD, Emanuel Roberto MD, Nahomi Washington MD, Akin Berry MD, Chito Jason MD, Akin Lima MD, Elvira Parra MD, Nahomi Bhatti MD, Blossom You PA-C, Maxi Neely RN, and Margoth Jacinto RN Reason: TR Provider: David Pertinent Testing Pertinent PMH: PE 09/04, thrombus of IVC incidentally noted on CT, very severe COPD PFT 08/07/24: FEV1 0.83 (21% predicted), DLCO 8.88 (29% predicted) SILVESTRE 11/02/24: EF 55-60%, mod RV Dil, mild RV dys, normal LA, QpQs 0.4, severe TON, severe TR R/L cath, Venogram/IVUS 11/16/24 (ATY): small amount of layered thrombus in IVC on IVUS, mild CAD, no L to R shunt; RA 10, RV 37/11, PA 38/20, LVEDP 13 -PKR: looks like he has primary TV disease w/ prolapse, let's review. I had that TR was from COPD, but it is primary so may consider CRUZITO or TTVR. Can consider CT cardiac after OV w/ me No results found for: WBC, HGB, HCT, MCV, PLT Lab Results Component Value Date CREATININE 0.8 11/16/2024 CrCl cannot be calculated (Patient's most recent lab result is older than the maximum 7 days allowed.). .FLOWAMB[11 Wt Readings from Last 1 Encounters: 11/16/24 59 kg (130 lb) There is no height or weight on file to calculate BMI. Estimated body surface area is 1.76 meters squared as calculated from the following: Height as of 11/16/24: 188 cm (6' 2). Weight as of 11/16/24: 59 kg (130 lb). Summary/Recommendation The cardiac history was reviewed as well as all available cardiac images. Discussion: Very severe COPD but with primary TR (appears to have prolapse with suspect torn minor chord) Recommendation: Follow up with Dr. Smalls to further discuss whether or not to pursue percutaneous intervention on TV. Unlikely to be a good surgical candidate given lung disease. Will get records from pulmonology. ANNETTE COSTA PA 11/28/24921 [facility]-15-[facility]24 Miscellaneous Notes Called patient to remind them to bring their most current copy of their medication list with them to their appt. Patient verbalizes understanding. documented in this encounter [facility]-15-[facility]24 Telephone encounter Note Called patient to remind them to bring their most current copy of their medication list with them to their appt. Patient verbalizes understanding. [facility] 11-13-2024 Miscellaneous Notes Images from the original note were not included. Patient scheduled for cardiac cath tomorrow 11/14/24 with AY Cath has been postponed/rescheduled due to insurance authorization. Appeal for coronary angiogram was submitted and finally approved. Called patient to update him that his procedure is approved, he states he took his Xarelto 20mg last night as he had not heard from us yet if he was able to proceed. Advised patient we would discuss with AY and call him back later today with final recommendations. Per secure cath from AY: he will have arterial access with less than 48hours of xeralto. plz reschedule. thanks. Called patient to offer him next first available cath with AY on Tuesday11/16/24. Patient agreeable to new date, will plan for 9:30am cath, he understands he should arrive to [facility], Entrance C by 8:00am. documented in this encounter [facility] 11-13-2024 Telephone encounter Note Images from the original note were not included. Patient scheduled for cardiac cath tomorrow 11/14/24 with AY Cath has been postponed/rescheduled due to insurance authorization. Appeal for coronary angiogram was submitted and finally approved. Called patient to update him that his procedure is approved, he states he took his Xarelto 20mg last night as he had not heard from us yet if he was able to proceed. Advised patient we would discuss with AY and call him back later today with final recommendations. [facility] 11-13-2024 Telephone encounter Note Per secure cath from AY: he will have arterial access with less than 48hours of xeralto. plz reschedule. thanks. Called patient to offer him next first available cath with AY on Tuesday11/16/24. Patient agreeable to new date, will plan for 9:30am cath, he understands he should arrive to [facility], Entrance C by 8:00am. [facility] 11-06-2024 Miscellaneous Notes Patient originally seen by [facility] in gen card clinic. Recommendation for cath and SHC referral. Insurance denied LHC and recommended CT Cors (see 09/03/24 telephone encounter). CT Cors was completed on 10/16/24 - abnormal finding with Left Cx - per PKR, he wants patient to proceed with LHC/Coronary angiogram. Per pre-cert, because this was previously denied it's requiring an appeal. Appeal was created and sent to insurance on 11/01/24. Received call this morning from pre-cert who states they don't see any updates regarding appeal decision on insurance website. Cath is on schedule for tomorrow 11/07/24. Advised them we would call for status update. Called insurance company and appeal is still pending review. They have up to 30 days from date appeal was received. Called patient to discuss situation and advised him we are still awaiting decision from insurance and need to reschedule cath. He v/u but was upset to hear his procedure needs rescheduled yet again. He mentions he will try calling his insurance company himself. Did offer patient tentative date for cath on 11/14/24, he understands this is pending appeal decision. *Patient also needs Lovenox bridging prior to cath. He will resume Xarelto this evening and will await updates with insurance prior to bridging again. Cath needs to be scheduled with ATY as patient also had abnormal finding on CT Cors for poss IVC thrombus. ATY has since ordered several vascular studies and added on Venogram to cath order. LEANNA Ibarra for ATY aware of insurance issue and plan for reschedule. Appeal re-faxed to [phone] with indication for FAST APPEAL. Per insurance decision can be made within 72 hours if labeled as such Images from the original note were not included. documented in this encounter [facility] 11-06-2024 Telephone encounter Note Patient originally seen by FRS in gen card clinic. Recommendation for cath and SHC referral. Insurance denied LHC and recommended CT Cors (see 09/03/24 telephone encounter). CT Cors was completed on 10/16/24 - abnormal finding with Left Cx - per PKR, he wants patient to proceed with LHC/Coronary angiogram. Per pre-cert, because this was previously denied it's requiring an appeal. Appeal was created and sent to insurance on 11/01/24. Received call this morning from pre-cert who states they don't see any updates regarding appeal decision on insurance website. Cath is on schedule for tomorrow 11/07/24. Advised them we would call for status update. Called insurance company and appeal is still pending review. They have up to 30 days from date appeal was received. Called patient to discuss situation and advised him we are still awaiting decision from insurance and need to reschedule cath. He v/u but was upset to hear his procedure needs rescheduled yet again. He mentions he will try calling his insurance company himself. Did offer patient tentative date for cath on 11/14/24, he understands this is pending appeal decision. *Patient also needs Lovenox bridging prior to cath. He will resume Xarelto this evening and will await updates with insurance prior to bridging again. Cath needs to be scheduled with ATY as patient also had abnormal finding on CT Cors for poss IVC thrombus. ATY has since ordered several vascular studies and added on Venogram to cath order. LEANNA Ibarra for ATY aware of insurance issue and plan for reschedule. [facility] 11-06-[facility]24 Telephone encounter Note Appeal re-faxed to [phone] with indication for FAST APPEAL. Per insurance decision can be made within 72 hours if labeled as such [facility] 11-06-2024 Telephone encounter Note Images from the original note were not included. [facility] 11-06-2024 Miscellaneous Notes IVUS/venogram added to cath procedure per AY ( see IVC duplex result notes) documented in this encounter [facility] 11-06-2024 Telephone encounter Note IVUS/venogram added to cath procedure per AY ( see IVC duplex result notes) [facility] 11-01-2024 Miscellaneous Notes ----- Message from ANNETTE Gunn sent at 10/31/2024 10:44 AM EST ----- Ok, thank you. He will need to start lovenox in am on 11/05 and take every 12 hours x4 doses with last dose being pm on 11/06. I have sent in the script. ----- Message ----- From: Johanny Colon Sent: 10/31/2024 10:04 AM EST To: ANNETTE Costa Pt takes his Xarelto in the AM. He is now rescheduled for cath on 11-07-24. Thank you! ----- Message ----- From: ANNETTE Costa Sent: 10/26/2024 1:40 PM EST To: Shan Helm Clinical Staff CT venogram was completed today. I'm not sure if the results will alter our plan to proceed with cath or not, but until we hear otherwise I think we should plan to proceed So we need to add on coronary angio to currently scheduled RHC given the CT findings per PKR. Patient will need bridged with lovenox while his Xarelto is held for cath. Please find out when he usually take Xarelto (morning or evening) so we can dose the lovenox appropriately. ----- Message ----- From: Lali Hernandez MD Sent: 10/25/2024 8:45 AM EST To: ANNETTE Costa; Ryann Washington MD Thanks for reviewing We will make sure he's on , bridging him at the time of his catheterization. We will then [place] nurses order the CTA venogram? Would you like to see the patient at any point in time ? Thank you ----- Message ----- From: Ryann Washington MD Sent: 10/25/2024 4:08 AM EST To: ANNETTE Costa; Lali Hernandez MD [facility], I reviewed her CT. I agree with filling defect in the mid IVC where there is contrast around it, which makes me suspicious given the dilated RV and the chronic PEs. I agree with continuing uninterrupted anticoagulation. Mentioned to the cord nurses to obtain CT venogram abdomen pelvis. ----- Message ----- From: Lali Hernandez MD Sent: 10/19/2024 2:58 PM EST To: ANNETTE Costa; [facility] Washington [facility] Can you take a look at this patient CT and let us know if there is anything you would recommend for the chronic PE and IVC filling defect? Rosaline Let's get this issues cleared up, then set him up for r/l cath, will need bridging ----- Message ----- From: ANNETTE Costa Sent: 10/19/2024 1:07 PM EST To: Lali Hernandez MD Pt scheduled for RHC w/ shunt run later this month. You had initially requested pt to have coronary angio as well, but insurance denied wanting the CT cors first. Report noting diffusely hypoplastic irregular left circumflex artery, the appearance of which may be due to artifact versus diffuse soft plaque. LCx vascular territory predominantly supplied by diagonal vessels off the LAD. LCX calcium score of 0. Also incidental finding of chronic appearing bibasilar segmental/subsegmental pulmonary emboli. Large filling defect within the intrahepatic IVC, suspicious for thrombosis. There is dilatation of the right ventricle suggestive of pulmonary hypertension as well. Recommend CT venogram of the abdomen/pelvis. Pt was found to have PE in July and has been on Xarelto since that time. It does not seem there is a plan to bridge pt while OAC is held for upcoming cath. Can you please advise and also whether or not you want coronary angio added to case? Called and spoke to pt and pts with updates. Rescheduled cath to next avail on 11-07 at 10:30 and arrive at 9:00am. Gave instructions over the phone and sent to [place]. documented in this encounter [facility] 11-01-2024 Telephone encounter Note ----- Message from ANNETTE Gunn sent at 10/31/2024 10:44 AM EST ----- Ok, thank you. He will need to start lovenox in am on 11/05 and take every 12 hours x4 doses with last dose being pm on 11/06. I have sent in the script. ----- Message ----- From: Johanny Colon Sent: 10/31/2024 10:04 AM EST To: ANNETTE Costa Pt takes his Xarelto in the AM. He is now rescheduled for cath on 11-07-24. Thank you! ----- Message ----- From: ANNETTE Costa Sent: 10/26/2024 1:40 PM EST To: Shan Helm Clinical Staff CT venogram was completed today. I'm not sure if the results will alter our plan to proceed with cath or not, but until we hear otherwise I think we should plan to proceed So we need to add on coronary angio to currently scheduled RHC given the CT findings per PKR. Patient will need bridged with lovenox while his Xarelto is held for cath. Please find out when he usually take Xarelto (morning or evening) so we can dose the lovenox appropriately. ----- Message ----- From: Lali Hernandez MD Sent: 10/25/2024 8:45 AM EST To: ANNETTE Costa; Ryann Washington MD Thanks for reviewing We will make sure he's on , bridging him at the time of his catheterization. We will then [place] nurses order the CTA venogram? Would you like to see the patient at any point in time ? Thank you ----- Message ----- From: Ryann Washington MD Sent: 10/25/2024 4:08 AM EST To: ANNETTE Costa; MD ARELY Yun, I reviewed her CT. I agree with filling defect in the mid IVC where there is contrast around it, which makes me suspicious given the dilated RV and the chronic PEs. I agree with continuing uninterrupted anticoagulation. Mentioned to the cord nurses to obtain CT venogram abdomen pelvis. ----- Message ----- From: Lali Hernandez MD Sent: 10/19/2024 2:58 PM EST To: ANNETTE Costa; MD Arely Jordan Can you take a look at this patient CT and let us know if there is anything you would recommend for the chronic PE and IVC filling defect? Rosaline Let's get this issues cleared up, then set him up for r/l cath, will need bridging ----- Message ----- From: ANNETTE Costa Sent: 10/19/2024 1:07 PM EST To: Lali Hernandez MD Pt scheduled for RHC w/ shunt run later this month. You had initially requested pt to have coronary angio as well, but insurance denied wanting the CT cors first. Report noting diffusely hypoplastic irregular left circumflex artery, the appearance of which may be due to artifact versus diffuse soft plaque. LCx vascular territory predominantly supplied by diagonal vessels off the LAD. LCX calcium score of 0. Also incidental finding of chronic appearing bibasilar segmental/subsegmental pulmonary emboli. Large filling defect within the intrahepatic IVC, suspicious for thrombosis. There is dilatation of the right ventricle suggestive of pulmonary hypertension as well. Recommend CT venogram of the abdomen/pelvis. Pt was found to have PE in July and has been on Xarelto since that time. It does not seem there is a plan to bridge pt while OAC is held for upcoming cath. Can you please advise and also whether or not you want coronary angio added to case? [facility] 11-01-2024 Telephone encounter Note Called and spoke to pt and pts with updates. Rescheduled cath to next avail on 11-07 at 10:30 and arrive at 9:00am. Gave instructions over the phone and sent to [place]. [facility] 10-25-2024 History of Presen t illness Narrative signed KEITH Matson 10/26/24 1055 documented in this encounter [facility] 10-05-2024 Miscellaneous Notes No answer when attempting to sched next avail SILVESTRE/cath. (Going to offer pt 10-31-24) documented in this encounter [facility] 10-05-2024 Telephone encounter Note No answer when attempting to sched next avail SILVESTRE/cath. (Going to offer pt 10-31-24) [facility] 10-04-2024 History of Presen t illness Narrative Farshad Junior Date of visit: 10/04/2024 Date of : 1960 Age: 64 y.o. Patient Active Problem List Diagnosis Shortness of breath Abnormal echocardiogram Pulmonary hypertension (CMS-HCC) PFO (patent foramen ovale) Pulmonary HTN (CMS-HCC) Severe tricuspid regurgitation Allergies Allergen Reactions Crestor [Rosuvastatin] Muscle pain Current Outpatient Medications Medication Sig Dispense Refill albuterol (PROVENTIL HFA;VENTOLIN HFA) 90 mcg/actuation inhaler Inhale 2 puffs every 4 (four) hours as needed. rdieseclxpy-vcsaeddjc-ujhgeute (TRELEGY ELLIPTA) 100-62.5-25 mcg blister with device Inhale 1 puff once daily. HYDROcodone-acetaminophen (NORCO) 10-325 mg per tablet Take 1 tablet by mouth every 8 (eight) hours as needed. rivaroxaban (XARELTO) 20 mg tablet tablet Take 1 tablet (20 mg total) by mouth in the morning. ZETIA 10 mg tablet Take 1 tablet (10 mg total) by mouth in the morning. metoprolol tartrate (LOPRESSOR) 50 mg tablet Take 1 tablet (50 mg total) by mouth in the morning and 1 tablet (50 mg total) before bedtime. XARELTO DVT-PE TREAT 30D START 15 mg (42)- 20 mg (9) tablets,dose pack See Admin Instructions. Take as directed on package No current facility-administered medications for this visit. Chief Complaint Patient presents with Follow-up Cath did not get done, see Dr. Hernandez's note from 09/21 History of Present Illness Farshad Junior was seen in follow-up today in the [place] office. Records are reviewed. He is a pleasant 64-year-old heavy smoker with emphysema, secondary polycythemia, dyslipidemia, and chronic back pain. Has a history of peripheral artery disease with iliac stenosis but no claudication. He has been increasingly breathless over the past 3-4 years. Ultimately an echocardiogram was performed which showed dilated right-sided chambers moderate to severe tricuspid regurgitation with Doppler evidence of moderate to severe pulmonary hypertension as well as a PFO with [id number] shunt. He may have laminar thrombus in the pulmonary arteries as well. 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 He is unaware of any prior cardiac history. He denies particular chest pain but is breathless with minimal exertion although does have some heaviness. He denies palpitations syncope or near-syncope. He was scheduled for right and left heart catheterization as well as a shunt study and transesophageal echocardiogram which somehow got canceled. He was evaluated by structural heart for consideration of closing the PFO and is awaiting the right and left heart catheterization, shunt study and transesophageal echocardiogram. In the meantime he has dramatically cut back on his smokes. He is breathing a little bit more comfortably. His appetite is better and he is not having bleeding issues with Xarelto Past Medical History: Diagnosis Date Cervical spondylosis Chronic pain COPD (chronic obstructive pulmonary disease) [place] [place] Emphysema lung [place] [place] Family history of prostate cancer Kidney infection Lumbar disc herniation with radiculopathy Lumbar spinal stenosis Lumbar spondylosis Peripheral arterial disease ([facility] [place] Varicose veins of right lower extremity Vertigo No data recorded No data recorded No data recorded Past Surgical History: Procedure Laterality Date APPENDECTOMY Family History Problem Relation Age of Onset Alcohol abuse Father Prostate cancer Father Arthritis Brother Social History Socioeconomic History Marital status: Spouse name: Not on file Number of children: Not on file Years of education: Not on file Highest education level: Not on file Occupational History Not on file Tobacco Use Smoking status: Former Types: Cigarettes Smokeless tobacco: Not on file Vaping Use Vaping status: Every Day Substances: Nicotine Substance and Sexual Activity Alcohol use: Not Currently Drug use: Never Sexual activity: Defer Other Topics Concern Caffeine Use Yes Social History Narrative Not on file Social Drivers of Health Financial Resource Strain: Not on file Food Insecurity: No Food Insecurity (08/30/2024) Hunger Screening Food Insecurity - Worry: Never True Food Insecurity - Inability: Never True Transportation Needs: Not on file Physical Activity: Not on file Stress: Not on file Social Connections: Not on file Interpersonal Safety: Not on file Housing Instability: Not on file Review of Systems Review of Systems Constitutional: Negative for malaise/fatigue and weight gain. HENT: Negative for hearing loss and nosebleeds. Eyes: Negative for blurred vision and double vision. Respiratory: Positive for shortness of breath. Negative for sleep disturbances due to breathing and wheezing. Endocrine: Negative for polydipsia. Hematologic/Lymphatic: Does not bruise/bleed easily. Skin: Negative for color change, itching and rash. Musculoskeletal: Negative for back pain, falls, joint swelling, muscle cramps and muscle weakness. Gastrointestinal: Negative for heartburn, hematochezia and melena. Genitourinary: Negative for hematuria. Neurological: Negative for dizziness, headaches, light-headedness, loss of balance, numbness, seizures and tremors. Psychiatric/Behavioral: Negative for altered mental status, depression and memory loss. Allergic/Immunologic: Negative for persistent infections. CARDIOVASCULAR: Please review HPI. Physical Examination O2 sats 98 falling to 91% supine to standing General appearance: Alert, oriented and cooperative. In no acute distress. Skin: Warm and dry to touch. Head: Normocephalic, without obvious abnormality, atraumatic. Ears, Nose, Mouth, Throat: Throat clear without erythema or exudate. Dentition intact. Eyes: Conjunctivae unremarkable, EOM intact. Neck: No JVD, No carotid bruit. Neck supple, trachea midline. Respiratory: Clear to auscultation bilaterally, no use of accessory muscles. Diminished breath sounds. No wheeze Cardiovascular: RRR with normal S1 and S2 with no murmurs. Gastrointestinal: Soft, non-tender. Bowel sounds normal. Musculoskeletal: No peripheral edema. Neurologic: Oriented to time, person and place, affect appropriate. No focal/major motor defects noted. Psychiatric: Appropriate mood, memory and judgement. VITAL SIGNS: BP 119/83 (BP Site: Left Arm) Pulse 97 Wt 61.2 kg (135 lb) SpO2 93% BMI 17.33 kg/m Orders Placed or Reconciled This Encounter Medications rivaroxaban (XARELTO) 20 mg tablet tablet Sig: Take 1 tablet (20 mg total) by mouth in the morning. metoprolol tartrate (LOPRESSOR) 50 mg tablet Sig: Take 1 tablet (50 mg total) by mouth in the morning and 1 tablet (50 mg total) before bedtime. There are no discontinued medications. IMPRESSIONS/PLAN There are no diagnoses linked to this encounter. 1.platypnea-orthodeoxia syndrome . 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 He does have evidence of PFO With bjiuo-rk-vosr shunt.. CT scan of the chest suggest laminar thrombus in the pulmonary artery as well. I would favor further workup to consider the possibility or appropriateness of sealing the PFO. I have again scheduled transesophageal echocardiogram as well as right and left heart catheterization and shunt study. I would discuss with structural heart the appropriateness of pulmonary angiography to exclude an intrapulmonary shunt following studies. 2. Laminar pulmonary artery thrombus. He is anticoagulated and I would continue this. 3. Encouraged to quit smoking 4. Pulmonary hypertension. This may not be high enough to specifically try and treat TODAYS ORDERS No orders of the defined types were placed in this encounter. FOLLOW UP No follow-ups on file. PCP: Smith Cooney Referring Physician: No referring provider defined for this encounter. documented in this encounter [facility] 09-21-2024 History of Presen t illness Narrative Images from the original note were not included. [facility] Farshad Junior Date of visit: 09/21/2024 Date of : 1960 Age: 64 y.o. 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 No known oral issues. History of Present Illness Farshad Junior is a pleasant 64-year-old gentleman referred to the structural heart clinic for shortness of breath, and a concern for a dilated RV and a PFO I reviewed his echo. He has a markedly dilated RV likely due to his history of heavy smoking and COPD. He may have a small PFO but it is difficult to tell. He has been set up for a right and left heart catheterization and SILVESTRE on September 11, 2024 but that was not completed. I would recommend he have that done so we can better assess his RV size and function, his tricuspid valve regurgitation, whether not he has a PFO, as well as his other valves and LV function. I would do the coronary angiogram as well as a right heart catheterization and shunt run. Based on that information we can make a best determination as to what needs to be done for this patient. Dr. Sandoval was concerned for platypnea -orthodeoxia syndrome, we had a patient can have arterial desaturation in the upright position with improvement in the supine position. Talking to the patient he has quit smoking for the past 2 months and his hypoxia he says his improved. In addition, the patient says that he used to frequently turn blue but that also has improved. Unclear if this is due to the shunting or not. Dr. Sandoval was also concern for a prior laminar pulmonary artery thrombus, the patient has been on anticoagulation with Xarelto We discussed risks benefits alternatives of proceeding with SILVESTRE as well as right and left heart catheterization. The patient is agreeable to proceeding. Current Outpatient Medications Medication Sig Dispense Refill albuterol (PROVENTIL HFA;VENTOLIN HFA) 90 mcg/actuation inhaler Inhale 2 puffs every 4 (four) hours as needed. xjhtksozchj-gcvabtjxu-xxlwwbry (TRELEGY ELLIPTA) 100-62.5-25 mcg blister with device Inhale 1 puff once daily. HYDROcodone-acetaminophen (NORCO) 10-325 mg per tablet Take 1 tablet by mouth every 8 (eight) hours as needed. XARELTO DVT-PE TREAT 30D START 15 mg (42)- 20 mg (9) tablets,dose pack See Admin Instructions. Take as directed on package ZETIA 10 mg tablet Take 1 tablet (10 mg total) by mouth in the morning. No current facility-administered medications for this visit. Allergies Allergen Reactions Crestor [Rosuvastatin] Muscle pain Patient Active Problem List Diagnosis Shortness of breath Abnormal echocardiogram Pulmonary hypertension ([facility]) PFO (patent foramen ovale) Pulmonary HTN ([facility]) Severe tricuspid regurgitation Past Medical History: Diagnosis Date Cervical spondylosis Chronic pain COPD (chronic obstructive pulmonary disease) ([facility]) Emphysema lung ([facility]) Family history of prostate cancer Kidney infection Lumbar disc herniation with radiculopathy Lumbar spinal stenosis Lumbar spondylosis Peripheral arterial disease ([facility]) Varicose veins of right lower extremity Vertigo Past Surgical History: Procedure Laterality Date APPENDECTOMY Family History Problem Relation Age of Onset Alcohol abuse Father Prostate cancer Father Arthritis Brother Social History Socioeconomic History Marital status: Spouse name: Not on file Number of children: Not on file Years of education: Not on file Highest education level: Not on file Occupational History Not on file Tobacco Use Smoking status: Former Types: Cigarettes Smokeless tobacco: Not on file Vaping Use Vaping status: Every Day Substances: Nicotine Substance and Sexual Activity Alcohol use: Not Currently Drug use: Never Sexual activity: Defer Other Topics Concern Caffeine Use Yes Social History Narrative Not on file Social Drivers of Health Financial Resource Strain: Not on file Food Insecurity: No Food Insecurity (08/30/2024) Hunger Screening Food Insecurity - Worry: Never True Food Insecurity - Inability: Never True Transportation Needs: Not on file Physical Activity: Not on file Stress: Not on file Social Connections: Not on file Interpersonal Safety: Not on file Housing Instability: Not on file Current Outpatient Medications Medication Sig Dispense Refill albuterol (PROVENTIL HFA;VENTOLIN HFA) 90 mcg/actuation inhaler Inhale 2 puffs every 4 (four) hours as needed. kfqepvzywqs-nbhbijbwu-ttpblvzw (TRELEGY ELLIPTA) 100-62.5-25 mcg blister with device Inhale 1 puff once daily. HYDROcodone-acetaminophen (NORCO) 10-325 mg per tablet Take 1 tablet by mouth every 8 (eight) hours as needed. XARELTO DVT-PE TREAT 30D START 15 mg (42)- 20 mg (9) tablets,dose pack See Admin Instructions. Take as directed on package ZETIA 10 mg tablet Take 1 tablet (10 mg total) by mouth in the morning. No current facility-administered medications for this visit. Review of Systems Review of Systems Constitutional: Negative for malaise/fatigue. HENT: Negative for nosebleeds. Eyes: Negative for blurred vision and double vision. Cardiovascular: Negative for leg swelling. Respiratory: Positive for shortness of breath. Negative for cough and wheezing. Hematologic/Lymphatic: Bruises/bleeds easily. Skin: Negative for rash. Musculoskeletal: Positive for muscle cramps. Negative for joint pain, joint swelling and muscle weakness. Gastrointestinal: Negative for abdominal pain, heartburn, nausea and vomiting. Genitourinary: Negative for hematuria. Neurological: Negative for dizziness, headaches, light-headedness and weakness. Psychiatric/Behavioral: Negative for depression. The patient is not nervous/anxious. CARDIOVASCULAR: Please review HPI. Physical Examination BP 102/80 Pulse 74 Ht 188 cm (6' 2.02) Wt 70.8 kg (156 lb) SpO2 91% BMI 20.02 kg/m CONSTITUTIONAL: cooperative, alert and oriented, well developed, well nourished, in no acute distress SKIN: warm and dry to touch HEAD:normocephalic, no tenderness EYES:conjuctivae and lids unremarkable, funduscopic exam and visual whittington not performed, EOMS intact NECK: no JVD CHEST: clear to auscultation and percussion, normal A-P diameter, no use of accessory muscles CARDIAC: regular rhythm, S1, S2, 2/6 systolic Murmur noted ABDOMEN: abdomen soft, bowel sounds normoactive, no masses, non-tender, no bruits PERIPHERAL PULSES: pulses full and equal in all extremities, no bruits auscultated EXTREMITIES and BACK: no cyanosis present, no clubbing present, no edema present PSYCHIATRIC: appropriate mood, memory and judgement NEUROLOGICAL: no gross motor or sensory deficits noted Cardiac Testing LAST ECHO (Within 2 Years) No results found. LAST STRESS (Within 2 Years) No results found. EKG: No results found. CATH: No results found. (Within 2 Years) LAST LABS: CBC: No results found for: WBC, HGB, HCT, MCV, PLT BMP: No results found for: GLU, CALCIUM, SODIUM, K, CO2, BUN, CREATININE PT/INR: @INR3@ Lipids: No results found for: CHOL No results found for: HDL No results found for: LDLCALC No results found for: TRIG No results found for: CHOLHDL Changes Made No orders of the defined types were placed in this encounter. There are no discontinued medications. IMPRESSIONS/PLAN Encounter Diagnoses Name Primary? 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 He is not on any home oxygen currently. He walked in today. I would recommend he have the SILVESTRE, right and left heart catheterization, and shunt run. Once the testing is complete we can review it at our structural heart meeting to provide any further recommendations. Thank you for the referral TODAYS ORDERS No orders of the defined types were placed in this encounter. FOLLOW UP No follow-ups on file. PCP: No primary care provider on file. Referring Physician: Kleber Sandoval MD [address] [place] [address] documented in this encounter [facility] 09-03-2024 Miscellaneous Notes ----- Message from LEANNA Garrison sent at 08/31/2024 11:25 AM EST ----- Regarding: Cath peer to peer Good morning, I just wanted to let you know that I had to schedule a cath peer to peer with you as Kathy's available times on Tuesday did not work for the insurance company and she is off the rest of the week. They also did not have a 3:30 time slot so I had to do it at 3:45. Cath P2P, scheduled at [facility] per [facility] with [facility] Case # [id number] Farshad Junior, [address] They will call your cell at 3:45, Carmen's number was provided as an alternate number. Please let me know if you need anything else. Thank you Hi Meli, the patient should be able to do a right heart catheterization with out any preauthorization. However, Dr. Preston recommends a coronary CTA and not a left heart catheterization. documented in this encounter [facility] 09-03-2024 Telephone encounter Note ----- Message from LEANNA Garrison sent at 08/31/2024 11:25 AM EST ----- Regarding: Cath peer to peer Good morning, I just wanted to let you know that I had to schedule a cath peer to peer with you as Kathy's available times on Tuesday did not work for the insurance company and she is off the rest of the week. They also did not have a 3:30 time slot so I had to do it at 3:45. Cath P2P, scheduled at [facility] per [facility] with [facility] Case # [id number] Farshad Junior, [address] They will call your cell at 3:45, Carmen's number was provided as an alternate number. Please let me know if you need anything else. Thank you [facility] Work Phone: 09-03-2024 Telephone encounter Note Hi Meli, the patient should be able to do a right heart catheterization with out any preauthorization. However, Dr. Preston recommends a coronary CTA and not a left heart catheterization. [facility] 09-03-2024 History of Presen t illness Narrative [facility] documented in this encounter [facility] 08-30-2024 Miscellaneous Notes Received order from Meli Mariscal at the [facility] office. Patient scheduled for cath/SILVESTRE on 09/11 at 1pm at [facility] with [facility]. Notified Meli. documented in this encounter [facility] 08-30-2024 Telephone encounter Note Received order from Meli Mariscal at the [facility] office. Patient scheduled for cath/SILVESTRE on 09/11 at 1pm at [facility] with [facility]. Notified Meli. [facility] Evaluation note No assessment inform ation available [facility] Work Phone: Evaluation note Diagnosis Onset Date Peripheral artery disease ac [facility] Work Phone: Evaluation note* Diagnosis Onset Date Resolution Status Peripheral artery disease ac [facility] Varicose veins of right lower extremity acute [facility] Work Phone: Evaluation note* Diagnosis Pulmonary hypertension (CMS-HCC)- Primary Other chronic pulmonary heart diseases PFO (patent foramen ovale) Ostium secundum type atrial septal defect Severe tricuspid regurgitation [facility] Diagnosis Shortness of breath- Primary [facility]* Diagnosis Pulmonary HTN (CMS-HCC) PFO (patent foramen ovale) Ostium secundum type atrial septal defect Acute chest pain- Primary Unspecified chest pain Pulmonary hypertension (CMS-HCC) Other chronic pulmonary heart diseases Severe tricuspid regurgitation Shortness of breath PFO (patent foramen ovale) Ostium secundum type atrial septal defect Pulmonary HTN (CMS-HCC) PFO (patent foramen ovale) Ostium secundum type atrial septal defect [facility] Diagnosis Pulmonary HTN (CMS-HCC) PFO (patent foramen ovale) 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 Pulmonary HTN (CMS-HCC) PFO (patent foramen ovale) Ostium secundum type atrial septal defect [facility] Diagnosis Severe tricuspid regurgitation- Primary Shortness of breath Severe tricuspid valve regurgitation [facility] Diagnosis Severe tricuspid regurgitation- Primary [facility]* Diagnosis Pulmonary hypertension ([facility] Primary Other chronic pulmonary heart diseases Severe tricuspid regurgitation [facility]* Diagnosis Severe tricuspid valve regurgitation- Primary [facility]* Diagnosis Severe tricuspid valve regurgitation- Primary Severe tricuspid valve regurgitation- Primary Shortness of breath Severe tricuspid valve regurgitation [facility] Diagnosis Severe tricuspid valve regurgitation- Primary Severe tricuspid valve regurgitation [facility]* Diagnosis Status post tricuspid valve repair- Primary Other postprocedural status [facility] Discharge instructionsNot on filedocumented in this encounterProMedica Health SystemInstructionsNot on filedocumented in this encounterProMedica Health SystemInstructionsNot on filedocumented in this encounterProMedica Health SystemInstructionsNot on filedocumented in this encounterProMedica Health SystemInstructionsNot on filedocumented in this encounterProMedica Health SystemInstructionsNot on filedocumented in this encounterProMedica Health SystemInstructionsNot on filedocumented in this encounterProMedica Health SystemInstructionsNot on filedocumented in this encounterProMedica Health SystemInstructionsNot on filedocumented in this encounterK[facility] SystemInstructionsNot on filedocumented in this encounterProChildren'S [facility] For [facility] SystemInstructionsNot on filedocumented in this encounterKettering [facility] SystemInstructionsNot on filedocumented in this encounterPremier HealthInstructions* Attachments The following attachments cannot be sent through Care Everywhere. * Quitting smoking for adults ([place]izen [place]) documented in this encounterPremier HealthInstructions* Attachments The following attachments cannot be sent through Care Everywhere. * Quitting smoking for adults ([place]izen [place]) documented in this encounterKet[facility] SystemInstructions* Attachments The following attachments cannot be sent through Care Everywhere. * Quitting smoking for adults ([place]izen [place]) documented in this encounterPremier HealthReason for visit Narrative* Auth/Cert Specialty Diagnoses / Procedures Referred By Johanna t Referred To Contact Diagnoses Severe tricuspid valve regurgitation tricuspid valve regurg Procedures [place] TTV[facility] PERQ APPROACH INITIAL PROSTHESIS Structural Heart Procedure TRICUSPID VALVE REPAIR INITIAL PROSTHESIS Lali Hernandez MD [address] [place] [address] Phone: tel: fax: Referral ID Status Reason Start Date Expiration Date Visits Re quested Visits Authorized [id number] 1 1 [facility] Family History No Family History Records Found Relationship Condition Age at Onset Recorded Date/T tequila father Malignant neoplasm Unknown brother Malignant neoplasm Unknown Advance Directives No Advanced Directives Records Found Advance Directive Response Recorded Date/ Time Living Will No November 01 017 12:59am Power of Spinning Bath Patroller No November 01, 2016 12:59am Advance Directive Response Recorded Date/ Time Advance Directives No November 17 4:04pm Advance Directive Response Recorded Date/ Time Advance Directives No November 17 3:04pm Date Activated Date Inactivated Comments 03/26/2025 2:33 PM 03/27/2025 7:03 PM Date Activated Date Inactivated Comments 03/26/2025 2:33 PM 03/27/2025 7:03 PM Chief Complaint and Reason for Visit Chief Complaint high grade stenosis right common iliac artery Reason for Visit Peripheral artery di sease Chief Complaint 6 month follow up; A BI's B/L legs at 10:30am I73.9 Chief Complaint 6 month follow up; A BI's B/L legs at 10:30am I73.9 Reason for Visit Peripheral artery di sease Varicose veins of right lower extremity Chief Complaint Admit Date Ref: Dr. Sigala, COPD *Test completed Sep 8:50am Summary Purpose Additional Source Comments Care Teams (unrecognized sec tion and content) Team Status: Active Member Role Status Dates Dr. Smith Cooney DO Family Provider Active Dr. Smith Cooney DO Primary Care Provider Active Team Status: Inactive Member Role Status Dates Dr. Smith Cooney DO Primary Care Provider, Attendin g Provider Active Team Status: Active Member Role Status Dates PHYSICIAN NO FAMILY Primary Care Provider Active Team Status: Inactive Member Role Status Dates Pascual Gonzalez MD Attending Provider Active S tart: November 28, 2023 End: November 28, 2023 Ivet Ricardo Referring Provider Active Start: November 28, 2023 End: November 28, 2023 PHYSICIAN NO FAMILY Primary Care Provider Active Start: November 28, 2023 End: November 28, 2023 Team Status: Active Member Role Status Dates NON STAFF Primary Care Provider Active Team Status: Inactive Member Role Status Dates Pascual Gonzalez MD Attending Provider Active S tart: May 28, 2024 End: May 28, 2024 NON STAFF Primary Care Provider Active Start: May 28, 2024 End: May 28, 2024 Team Status: Active Member Role Status Dates Pascual Gonzalez MD Attending Provider Active S tart: May 28, 2024 NON STAFF Primary Care Provider Active Start: May 28, 2024 Commutator V Ring Assembler Relationship Specialty Start Date End Date Smith Cooney PCP - General Family Medicine 10/04/24 Commutator V Ring Assembler Relationship Specialty Start Date End Date Smith Cooney PCP - General Family Medicine 10/04/24 Team Status: Inactive Member Role Status Dates Lopez Velarde DO Attending Provider Active St art: October 11, 2024 End: October 11, 2024 Georgiana Dobson MD Referring Provider Active Start: October 11, 2024 End: October 11, 2024 Commutator V Ring Assembler Relationship Specialty Start Date End Date Smith Cooney PCP - General Family Medicine 10/04/24 Commutator V Ring Assembler Relationship Specialty Start Date End Date Smith Cooney A PCP - General Family Medicine 10/04/24 Commutator V Ring Assembler Relationship Specialty Start Date End Date Smith Cooney A PCP - General Family Medicine 10/04/24 Commutator V Ring Assembler Relationship Specialty Start Date End Date Smith Cooney A PCP - General Family Medicine 10/04/24 Commutator V Ring Assembler Relationship Specialty Start Date End Date Smith Cooney A PCP - General Family Medicine 10/04/24 Commutator V Ring Assembler Relationship Specialty Start Date End Date Smith Cooney A PCP - General Family Medicine 10/04/24 Commutator V Ring Assembler Relationship Specialty Start Date End Date Smith Cooney A PCP - General Family Medicine 10/04/24 Commutator V Ring Assembler Relationship Specialty Start Date End Date Smith Cooney A PCP - General Family Medicine 10/04/24 Commutator V Ring Assembler Relationship Specialty Start Date End Date Smith Cooney A PCP - General Family Medicine 10/04/24 Commutator V Ring Assembler Relationship Specialty Start Date End Date Smith Cooney A PCP - General Family Medicine 10/04/24 Commutator V Ring Assembler Relationship Specialty Start Date End Date Smith Cooney A PCP - General Family Medicine 10/04/24 Commutator V Ring Assembler Relationship Specialty Start Date End Date Smith Cooney A PCP - General Family Medicine 10/04/24 Commutator V Ring Assembler Relationship Specialty Start Date End Date Smith Cooney A PCP - General Family Medicine 10/04/24 Commutator V Ring Assembler Relationship Specialty Start Date End Date Smith Cooney A PCP - General Family Medicine 10/04/24 Goals (unrecognized section and content) Goals may be documented in a n alternate sectionGoals may be documented in an alternate sectionGoals may be documented in an alternate sectionGoals may be documented in an alternate sectionNot on filedocumented as of this encounterNot on filedocumented as of this encounterNot on filedocumented as of this encounterNot on filedocumented as of this encounterNot on filedocumented as of this encounterNot on filedocumented as of this encounterGoals may be documented in an alternate sectionNot on filedocumented as of this encounterNot on filedocumented as of this encounterNot on filedocumented as of this encounterNot on filedocumented as of this encounterNot on filedocumented as of this encounterNot on filedocumented as of this encounterNot on filedocumented as of this encounterNot on filedocumented as of this encounterNot on filedocumented as of this encounterNot on filedocumented as of this encounterNot on filedocumented as of this encounterNot on filedocumented as of this encounterNot on filedocumented as of this encounterNot on filedocumented as of this encounterNot on filedocumented as of this encounterNot on filedocumented as of this encounterNot on filedocumented as of this encounterNot on filedocumented as of this encounterNot on filedocumented as of this encounterNot on filedocumented as of this encounterNot on filedocumented as of this encounterNot on filedocumented as of this encounterNot on filedocumented as of this encounterNot on filedocumented as of this encounterNot on filedocumented as of this encounterNot on filedocumented as of this encounterNot on filedocumented as of this encounter (unrecognized sect ion and content) No Status Records FoundNo Status Records FoundNo Status Records FoundNo Status Records FoundNo Status Records FoundNo Status Records Found INFORMATION SOURCE (unrecogn ized section and content) DATE CREATED AUTHOR 06/12/2024 [facility] DATE CREATED AUTHOR AUTHOR'S ORGANIZ ATION 09/28/2024 [facility] DATE CREATED AUTHOR AUTHOR'S ORGANIZ ATION 12/26/2024 [facility] DATE CREATED AUTHOR AUTHOR'S ORGANIZ ATION 03/30/2025 [facility] DATE CREATED AUTHOR AUTHOR'S ORGANIZ ATION 04/20/2025 [facility] DATE CREATED AUTHOR AUTHOR'S ORGANIZ ATION 06/17/2025 [facility] Reason for Visit (unrecogniz ed section and content) Reason Onset Date Comments SILVESTRE/Cardiac Cath 08/30/2024 Reason Comments 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 No known oral issues. Specialty Diagnoses / Procedures Referred By Johanna t Referred To Contact Cardiology Diagnoses PFO (patent foramen ovale) Kleber Sandoval MD [address] [place] [address] Phone: tel: fax: [facility] [address] [place] [phone] Phone: tel: fax: Referral ID Status Reason Start Date Expiration Date Visits Requested Visits Authorized [id number] Pending Review Specialty Services Required 4 08/30/2025 1 1 Reason Comments Follow-up Cath did not get don e, see Dr. Hernandez's note from 09/21 Reason Onset Date Comments Cardiac Cath Denial 11/06/2024 Reason Onset Date Comments Cath 11/13/2024 Reason Comments Follow-up OV W PKR TO DISCUSS NEXT STEPS-APPT SCHED W PT Cardiac Valve Problem Medication Problem Stopped taking Metop rolol, experienced dizzy, feeling of passing out, nausea. Day after stopping felt much better. Reason Comments New Patient TV eval - discuss ne xt steps, PKR + CTS, sched w/patient Cardiac Valve Problem Reason Comments Follow-up TV eval - discuss ne xt steps, PKR + CTS, sched w/patient Cardiac Valve Problem Reason Onset Date Comments TV CRUZITO Prior Auth 03/01/2025 Scheduled Active and Recently Administ ered Medications (unrecognized section and content) Medication Order 03/25/2025 03/26/2025 03/27/2025 aspirin chewable tablet 81 mg 81 mg, oral, Daily, First dose on Tue03/26/25 at 1230 1230 (Not Given - Provider: Jenna Limon, LEANNA - Reason: Other - Comment: duplicate) 0855 (Given - Provider: Anusha Hernandez RN) aspirin EC tablet 81 mg 81 mg, oral, Daily, First dose on Tue03/26/25 at 1500, Do not crush or chew. 1602 (Given - Provider: Jenna Limon RN) 0900 (Not Given - Provider: Anusha Hernandez RN - Reason: Other - Comment: duplicate order) ceFAZolin (ANCEF) 2,000 mg in sodium chloride 0.9 % 50 mL IVPB W/ADAPTER (COMPLETED) 2,000 mg, intravenous, at 100 mL/hr, Administer over 30 Minutes, Every 8 hours, First dose on Tue03/26/25 at 1700, For 1 dose, For weight less than 120 kg. For a total of 2 doses - including pre-op dose ; Pharmacy may adjust dose per renal function For Vial-2-Bag: Attach bag and vial to adapter - Use immediately after activating; dissolve drug prior to administration., Indication: Surgical prophylaxis 2100 (New Bag - Provider: Anali Parker, RN)2130 (Stop Bag - Provider: Anali Parker RN) ezetimibe (ZETIA) tablet 10 mg 10 mg, oral, Daily, First dose on Tue03/26/25 at 1500, Look-alike/sound-alike medication - verify indication for use. 1602 (Given - Provider: Jenna Limon RN) 0855 (Given - Provider: Anusha Hernandez, LEANNA) fluticasone furoate-vilanteroL (BREO ELLIPTA) 100-25 mcg/dose inhaler 1 puff(Linked Group 1) 1 puff, inhalation, Daily, First dose on Tue03/27/25 at 1000, Administer fluticasone furoate-vilanterol (BREO ELLIPTA) 100-25 mcg/dose inhaler in addition to umeclidinium (INCRUSE ELLIPTA) 62.5 mcg/dose inhaler as a replacement for yhggjfujjya-fvjiucusbblt-k ilanterol (TRELEGY ELLIPTA) inhaler 100-62.5-25 mcg/dose. 0900 (Given - Provid er: Anusha Hernandez RN) midazolam (VERSED) injection 2 mg (COMPLETED) 2 mg, intravenous, Once, On Tue03/26/25 at 0730, For 1 dose, May repeat in 10 minutes, if needed, if original midazolam (VERSED) ineffective, Indication: Other, Indication: anxiety 0735 (Given - Provider: Kylah Dye RN) rivaroxaban (XARELTO) tablet 20 mg 20 mg, oral, Daily, First dose on Tue03/26/25 at 2000, Take/Give with food., Indication: Nonvalvular Atrial Fibrillation (NVAF) 2055 (Given - Provider: Anali Parker RN) sodium chloride 0.9 % bolus (COMPLETED) 500 mL, intravenous, at 500 mL/hr, Administer over 1 Hours, Once, On Tue03/26/25 at 2100, For 1 dose 2133 (New Bag - Provider: Anali Parker RN)2233 (Stop Bag - Provider: Anali Parker RN) sodium chloride 0.9 % flush 3 mL (CANCELED) 3 mL, intravenous, Every 12 hours, First dose on Tue03/26/25 at 0900, Pre-Procedure (CV) 0735 (Given - Provider: Kylah Dye RN)0900 (Canceled Entry - Provider: Kylah Dye RN) sodium chloride 0.9 % flush 3 mL 3 mL, intravenous, Every 12 hours scheduled, First dose on Tue03/26/25 at 1230 1602 (Given - Provider: Jenna Limon RN)2055 (Given - Provider: Anali Parker RN) 0856 (Given - Provider: Anusha Hernandez RN) umeclidinium (INCRUSE ELLIPTA) 62.5 mcg/actuation inhaler 1 puff(Linked Group 1) 1 puff, inhalation, Daily, First dose on Tue03/27/25 at 1000, Administer umeclidinium (INCRUSE ELLIPTA) 62.5 mcg/dose inhaler in addition to fluticasone furoate-vilanterol (BREO ELLIPTA) 100-25 mcg/dose inhaler as a replacement for hkhdphslron-crcncgiumifa-a ilanterol (TRELEGY ELLIPTA) inhaler 100-62.5-25 mcg/dose. Do not shake inhaler. 0900 (Given - Provid er: Anusha Hernandez RN) PRN Medication Order 03/25/2025 03/26/2025 03/27/2025 acetaminophen (TYLENOL) tablet 650 mg 650 mg, oral, Every 4 hours PRN, mild pain - pain scale 1-3, headaches, Starting on Tue03/26/25 at 1221 2055 (Given - Provider: Anali Parker RN) albuterol (PROVENTIL,VENTOLIN) nebulizer solution 2.5 mg 2.5 mg, nebulization, Every 6 hours PRN, shortness of breath, Starting on Tue03/26/25 at 1013, Implement INPATIENT/ED Bronchodilator Clinical Practice Guidelines? Yes alum-mag hydroxide-simeth (MAALOX) 200-200-20 mg/5 mL suspension 30 mL 30 mL, oral, 4 times daily after meals and at bedtime as needed, indigestion, Starting on Tue03/26/25 at 1221, Look-alike/sound-alike medication - verify indication for use. Shake well. dextrose (GLUTOSE) 40 % gel 15 g 15 g, oral, As needed, low blood sugar, blood glucose less than 70 mg/dL, Starting on Tue03/26/25 at 1222, Recovery (CV) and Post-Procedure, If patient conscious and taking PO. If blood glucose is not greater than 70 mg/dL after initial treatment, repeat treatment. dextrose 5 % (D5W) infusion 100 mL/hr, intravenous, Continuous PRN, blood glucose less than 70 mg/dL, Starting on Tue03/26/25 at 1222, Recovery (CV) and Post-Procedure, Use immediately following dextrose 50% or glucagon treatment for patients who are unconscious or NPO. Contact prescriber for additional orders. If blood glucose is not greater than 70 mg/dL after initial treatment, repeat treatment. dextrose 50 % in water (D50W) 50% solution 25 mL 25 mL, intravenous, As needed, low blood sugar, blood glucose less than 70 mg/dL and unconscious or NPO with IV access, Starting on Tue03/26/25 at 1222, Recovery (CV) and Post-Procedure, Push over 1-3 minutes STAT. If conscious and not NPO, immediately follow with meal tray or high protein (7 grams) snack if tray not available. If NPO, initiate 5% dextrose in water at 100 mL/hr and contact prescriber for additional orders. If blood glucose is not greater than 70 mg/dL after initial treatment, repeat treatment. VESICANT (RED) Warning: HYPERTONIC solution. glucagon HCL injection 1 mg 1 mg, intramuscular, As needed, low blood sugar, blood glucose less than 70 mg/dL and unconscious or NPO without IV access., Starting on Tue03/26/25 at 1222, Recovery (CV) and Post-Procedure, If conscious and not NPO, immediately follow with meal tray or high protein (7Grams) snack if tray not available. If NPO, initiate IV 5% Dextrose/Water at 100 mL/hr and contact prescriber for additional orders. If blood glucose is not greater than 70 mg/dL after initial treatment, repeat treatment. HYDROcodone-acetaminophen (NORCO) 10-325 mg per tablet 1 tablet 1 tablet, oral, Every 8 hours PRN, severe pain - pain scale 7-10, Starting on Tue03/26/25 at 1013, Look-alike/sound-alike medication - verify indication for use. LORazepam (ATIVAN) tablet 1 mg 1 mg, oral, Every 6 hours PRN, anxiety, Starting on Tue03/26/25 at 1221, Look-alike/sound-alike medication - verify indication for use. ondansetron (PF) (ZOFRAN) injection 4 mg 4 mg, intravenous, Every 6 hours PRN, nausea, vomiting, Starting on Tue03/26/25 at 1221, Intravenous administration preferred to be given over 2-5 minutes. sodium chloride 0.9 % flush 3 mL 3 mL, intravenous, As needed, line care, before and after each intermittent use, Starting on Tue03/26/25 at 1221 Linked Groups Order Group 1: fluticasone furoate-vilanteroL (BREO ELLIPTA) 100-25 mcg/dose inhaler 1 puffJump to med 1 puff, inhalation, Daily, First dose on Tue03/27/25 at 1000, Administer fluticasone furoate-vilanterol (BREO ELLIPTA) 100-25 mcg/dose inhaler in addition to umeclidinium (INCRUSE ELLIPTA) 62.5 mcg/dose inhaler as a replacement for csofiqnhicv-oncjtxcejwuh-ddbusuwrxc (TRELEGY ELLIPTA) inhaler 100-62.5-25 mcg/dose. And umeclidinium (INCRUSE ELLIPTA) 62.5 mcg/actuation inhaler 1 puffJump to med 1 puff, inhalation, Daily, First dose on Tue03/27/25 at 1000, Administer umeclidinium (INCRUSE ELLIPTA) 62.5 mcg/dose inhaler in addition to fluticasone furoate- vilanterol (BREO ELLIPTA) 100-25 mcg/dose inhaler as a replacement for cvcmxmenwfx-tpaphkanfcax-fppjmqempw (TRELEGY ELLIPTA) inhaler 100-62.5-25 mcg/dose. Do not shake inhaler. FOR RECORDS PERTAINING TO PATIENTS WHO ARE [...] BE BASED ON THE PRIMARY CLINICAL RECORDS. [employer] provides no warranty or guarantee of the accuracy or completeness of information in this document.
== END | disposition home or self-care (01) ==
PROVIDERS: PCP Family Medicine; Visit Provider Family Medicine
DX: I73.9 Peripheral vascular disease, unspecified (principal); Z12.5 Encounter for screening for malignant neoplasm of prostate; R53.83 Other fatigue; R63.4 Abnormal weight loss; Z79.899 Other long term (current) drug therapy
CPT/HCPCS: 36415; 80053; 80061; 80307; 81002; 82533; 84153; 84443; 85025; G0103